=== PATIENT | female | born 1985 | race Hispanic/Latino ===

== ENCOUNTER 2021-10-24 15:50 | Emergency (ER) | payer SELFPAY ==
--- OUTSIDE RECORDS SUMMARY | 2021-10-24 15:54 | XMS REPORT | Continuity of Care Document ---
:1985 Author Organization [facility] t Address [address] [place] [address] Care Team Providers Name Role Phone PCP, DOES NOT HAVE A Primary Care Physician Unavailable RIDDLE Attending Clinician Unavailable Doctor Unassigned, Name Attending Clinician Unavailable Birgit ZURITA Attending Clinician BIRGIT Attending Clinician Unavailable Alexander Attending Clinician Unavailable Physician, Primary or Family Admitting Clinician Unavailabl e Payers Payer Name Policy Type Policy Number Effective Date Expiration Date S ource Problems This patient has no known problems. Allergies, Adverse Reactions, Alerts Allergy Allergy Status Severity Reaction(s) Onset Inactive Treating Comm ents Source Name Type Date Date Clinician No Known DA Active U [facility] Allergie 07-09 Clear s 00:00: [place] 00 [facility] NO KNOWN Drug Active Univers ALLERGIE Class [facility] [place] [facility] [place] Social History Social Habit Start Date Stop Date Quantity Comments Source Exposure to Not sure [facility] SARS-CoV-2 (event) [facility] Sex Assigned At [birth year] [facility] 00:00:00 00:00:00 Medical [place] Smoking Status Start Date Stop Date Source Unknown if ever smoked [facility] Medications Ordered Filled Start Stop Current Ordering Indication Dosage Frequency Signature Comments Components Source Medication Medication Date Date Medication? Clinician (SIG) Name Name lactulose No 45mL 45 mL, Unive rs (CEPHULAC) 05-26 Oral, ity of solution 45 12:15: 11:15 [place] :[place] dose, [facility] 05/26/21 at [place] 0715, [place] HYDROcodone 2020- No 1{tbl} 1 tablet, Univers -acetaminop 05-26 Oral, ity of hen (NORCO 11:30: 10:28 ONCE, 1 [place] as 5) 5-325 mg 00 :00 dose, Mon Med ical tablet 1 05/26/21 at [facility] h tablet 0630, FRANK[place] famotidine 2020- No 20mg 20 mg, Univ ers (PEPCID AC) 05-26 Oral, ity of tablet 20 08:45: 08:57 ONCE, 1 [place] mg 00 :00 dose, [facility] 05/26/21 at [place] 0345, [place]ANK[place] alum-mag No 30mL 30 mL, Univer s hydroxide-s 05-26 Oral, ity of imeth 08:45: 08:57 ONCE, 1 [place] (MAALOX 00 :00 dose, [facility] PLUS / 05/26/21 at [facility] 0345, FRANK[place] PLUS) 200-200-20 mg/5 mL suspension 30 mL dicyclomine No 20mg 20 mg, Uni vers (BENTYL) 05-26 Intramuscu ity of injection 08:45: 08:45 [place] 20 mg 00 :00 NOW, 1 Medical dose, [facility] 05/26/21 at 0345, Routine ketorolac 2020- No 60mg 60 mg, Unive rs (TORADOL) 05-26 Intramuscu ity of injection 08:45: 09:00 lar, ONCE, [place] 60 mg 00 :00 1 dose, Medical [facility] 05/26/21 at 034, FRANKY
Fa culty member approving Restricted medication : GURVINDER GENAO diclofenac Yes [id number] 75mg Take 1 U nivers 75 mg EC 8-16 tablet by ity of tablet 00:00: mouth 2 [place] (two) Medical times [place] daily with meals. famotidine Yes [id number] 20mg Take 1 U nivers (PEPCID) 20 8-16 tablet by ity of mg tablet 00:00: mouth 2 [place] (two) Medical times [place] daily. hyoscyamine [id number] 1 Univers sulfate 8-16 tablet ity of (LEVSIN/SL) 00:00: under the [place] 0.125 mg 00 tongue Medical sublingual every 6 [place] tablet (six) hours as needed (Abdominal pain or cramping). diclofenac Yes [id number] 75mg Take 1 U nivers 75 mg EC 8-16 tablet by ity of tablet 00:00: mouth 2 [place] (two) Medical times [place] daily with meals. famotidine Yes [id number] 20mg Take 1 U nivers (PEPCID) 20 8-16 tablet by ity of mg tablet 00:00: mouth [place] (two) Medical times [place] daily. hyoscyamine Yes [id number] .125mg Place 1 Univers sulfate 8-16 tablet ity of (LEVSIN/SL) 00:00: under the [place] 0.125 mg 00 tongue Medical sublingual every 6 [place] tablet (six) hours as needed (Abdominal pain or cramping). Vital Signs Vital Name Observation Time Observation Value Comments Source Systolic blood 2021-05-26 10:00:00 112 mm[Hg] [facility] Diastolic blood 2021-05-26 10:00:00 79 mm[Hg] [facility] rate 2021-05-26 10:00:00 85 /min [facility] Body temperature 2021-05-26 10:00:00 36.89 Maribel [facility] Respiratory rate 2021-05-26 10:00:00 16 /min [facility] Oxygen saturation in 2021-05-26 10:00:00 97 /min [facility] Arterial blood by [facility] Pulse oximetry [place] Body height 2021-05-26 07:32:00 165.1 cm [facility] Body weight 2021-05-26 07:32:00 70.308 kg [facility] BMI 2021-05-26 07:32:00 25.79 kg/m2 [facility] Procedures Procedure Date / Time Performed Performing Clinician [facility] CONSENT/REFUSAL FOR 2021-10-24 20:41:00 Doctor Unassigned, [facility] TREATMENT CT ABDOMEN PELVIS WO 2021-05-26 10:54:38 Gurvinder Genao [facility] CONTRAST [facility] XR ABDOMEN 2 VW 2021-05-26 09:08:18 Gurvinder Genao [facility] LIPASE 2021-05-26 09:04:00 [facility] METABOLIC PANEL 2021-05-26 09:04:00 Gurvinder Genao [facility] ([id number]) [facility] CBC WITH DIFF 2021-05-26 09:04:00 Gurvinder Genao [facility] URINALYSIS 2021-05-26 09:04:00 Gurvinder Genao [facility] POCT TEST 2021-05-26 08:56:00 Gurvinder Genao [facility] ASSIGNMENT OF BENEFITS 2021-05-26 07:25:23 Doctor Unassigned, No [facility] CONSENT/REFUSAL FOR 2021-05-26 07:19:56 Doctor Unassigned, No Un [facility] DIAGNOSIS AND [facility] TREATMENT Encounters Start End Encounter Admission Attending Care Care Encounter Source Date/Time Date/Time Type Type Clinicians Facility Department ID 2021-10-24 2021-10-24 Emergency X VI [facility] ERT [id number] Univers 14:47:00 14:47:00 REJI breaux y of [facility] 2021-10-24 2021-10-24 Orders Doctor PRICE [id number] Univers 00:00:00 00:00:00 Only Unassigned, ZEHRA [id number] ity of [place] [facility] [id number] [place] as [phone] [place] [id number] [place] 2021-05-26 2021-05-26 Emergency Birgit [facility] [id number] Univers 02:23:00 06:55:00 [facility] [id number] it y of [place] 4.2.7.2.686 [facility] [phone] [address] ([facility]) 2021-05-26 2021-05-26 Emergency X BIRGIT, [facility] ERT [id number] Univers 02:23:00 02:23:00 GURVINDER tao [facility] 2021-05-22 2021-05-22 Emergency EM Dark, Maria Esther [facility]ACL TERS [id number] [facility] 06:43:00 09:00:00 [id number] [facility] Results Test Description Test Time Test Comments Results Result Comments Source URINALYSIS 2021-05-26 09:51:07 Test Item Value Reference Range Interpretation Comme nts APPEARANCE (test code = Cloudy Clear A 6170106331) COLOR (test code = 0920778534) Yellow Yellow PH (test code = 4709805648) 4.8-8.0 SP GRAVITY (test code = 1.003-1.030 0252129204) GLU U QUAL (test code = Normal Normal 8844072758) BLOOD (test code = 7613743569) 1+ Negative A KETONES (test code = 4073795842) Negative Negative PROTEIN (test code = 2887-8) Negative Negative UROBILIN (test code = Normal Normal 9174148640) BILIRUBIN (test code = Negative Negative 8667078510) NITRITE (test code = 8327535888) Negative Negative LEUK HAYLIE (test code = Negative Negative 9694569484) RBC/HPF (test code = 8936542088) See_Comment H [Automated message] The system which ge nerated this result transmit wong reference range: 0 - 3 HP F. The reference range was not used to interpret th is result as normal/abnormal . WBC/HPF (test code = 3217553860) See_Comment [Automated message] The system which ge nerated this result transmit wong reference range: 0 - 5 HP F. The reference range was not used to interpret th is result as normal/abnormal . BACTERIA (test code = Moderate Negative A 5135464610) MUCOUS (test code = 8558696518) Moderate Negative LPF A AMORPHOUS (test code = Rare Rare HPF 0033493186) SQ EPITH (test code = See_Comment H [Auto mated message] The 1472187936) system which ge nerated this result transmit wong reference range: <=2 HPF. The reference range was not u sed to interpret this result as normal/abnormal . Lab Interpretation (test code = Abnormal 31539-9) [facility]. METABOLIC PANEL (80684)2021-05-26 09:31:22 Test Item Value Reference Range Interpretation Comments NA (test code = 138 mmol/L 135-145 6987153981) K (test code = 3.8 mmol/L 3.5-5.0 2065058587) CL (test code = 103 mmol/L 98-108 9952211208) CO2 TOTAL (test code 28 mmol/L 23-31 = 9414448861) AGAP (test code = 2-16 3031816532) BUN (test code = 18 mg/dL 7-23 9266741841) GLUCOSE (test code = 86 mg/dL 70-110 7565744059) CREATININE (test code 0.78 mg/dL 0.50-1.04 = 6793641642) TOTAL BILI (test code 0.2 mg/dL 0.1-1.1 = 0047405525) CALCIUM (test code = 9.1 mg/dL 8.6-10.6 0055696357) T PROTEIN (test code 6.9 g/dL 6.3-8.2 = 1358333120) ALBUMIN (test code = 4.1 g/dL 3.5-5.0 9494051684) ALK PHOS (test code = 42 U/L 34-122 0918072966) ALTv (test code = 10 U/L 5-35 1742-6) AST(SGOT) (test code 17 U/L 13-40 = 6753146103) eGFR (test code = mL/min/1.73m2 1963965479) JOE (test code = JOE) Association of Glomerular Filtration Rate (GFR) and Staging of Kidney Disease* + + +- +| GFR (mL/min/1.73 m2) ?| With Kidney Damage ?| ?Without Kidney Damage+ ------+ ----+ ------+| ?>90 ?| ?Stage one ?| ? Normal ?+ -+ + -+| ?60-89 ?| ?Stage two ?| ? Decreased GFR ? + + +- +| ?30-59 ?| ?Stage three ?| ? Stage three ? + + +- +| ?15-29 ?| ?Stage four ? | ? Stage four ?+ -+ + -+| ?<15 (or dialysis) ? ?| ?Stage five ? | ? Stage five ?+ -+ + -+ *Each stage assumes the associated GFR level has been in effect for at least three months. ?Stages 1 to 5, with or without kidney disease, indicate chronic kidney disease. Notes: Determination of stages one and two (with eGFR >59mL/min/1.73 m2) requires estimation of kidney damage for at least three months as defined by structural or functional abnormalities of the kidney, manifested by either:Pathological abnormalities or Markers of kidney damage (including abnormalities in the composition of the blood or urine or abnormalities in imaging tests). [facility] Test Item Value Reference Range Interpretation Comments LIPASE (test code = 4215337400) 148 U/L 0-220 Lab Interpretation (test code = Normal 17698-9) [facility] WITH [id number] 09:16:20 Test Item Value Reference Range Interpretation Comments WBC (test code = See_Comment [Automated 7644-2) message] The sy stem which generated this result transmitted reference range : 4.30 - 11.10 10*3/?L. The reference range was not used to interpret this result as normal/abnormal . RBC (test code = See_Comment [Automated 170-8) message] The sy stem which generated this result transmitted reference range : 3.93 - 5.25 10*6/?L. The reference range was not used to interpret this result as normal/abnormal . HGB (test code = 12.7 g/dL 11.6-15.0 718-7) HCT (test code = 38.3 % 35.7-45.2 4544-3) MCV (test code = 91.6 fL 80.6-95.5 787-2) MCH (test code = 30.4 pg 25.9-32.8 785-6) MCHC (test code = 33.2 g/dL 31.6-35.1 786-4) RDW-SD (test code = 39.6 fL 39.0-49.9 15350-3) RDW-CV (test code = 11.9 % 12.0-15.5 L 788-0) PLT (test code = See_Comment [Automated 777-3) message] The sy stem which generated this result transmitted reference range : 166 - 358 10*3/ ?L. The reference r hardy was not used to interpret this result as normal/abnormal . MPV (test code = 9.1 fL 9.5-12.9 L 55130-0) NRBC/100 WBC (test See_Comment [Automat ed code = 2528369104) message] The system which generated this result transmitted reference range : 0.0 - 10.0 /100 WBCs. The refer ence range was not u sed to interpret th is result as normal/abnormal . NRBC x10^3 (test code <0.01 See_Comment [Auto mated = 5630685934) message] The s ystem which generated this result transmitted reference range : 10*3/?L. The reference range was not used to interpret this result as normal/abnormal . GRAN MAT (NEUT) % 57.1 % (test code = 770-8) IMM GRAN % (test code 0.40 % = 1160786079) LYMPH % (test code = 32.6 % 736-9) MONO % (test code = 9.3 % 5905-5) EOS % (test code = 0.4 % 713-8) BASO % (test code = 0.2 % 706-2) GRAN MAT x10^3(ANC) 5.50 10*3/uL 1.88-7.09 (test code = 9104082638) IMM GRAN x10^3 (test 0.04 10*3/uL 0.00-0.06 code = 6064931269) LYMPH x10^3 (test code 3.14 10*3/uL 1.32-3.29 = 731-0) MONO x10^3 (test code 0.90 10*3/uL 0.33-0.92 = 742-7) EOS x10^3 (test code = 0.04 10*3/uL 0.03-0.39 711-2) BASO x10^3 (test code <0.03 0.01-0.07 = 704-7) Lab Interpretation Abnormal (test code = 61032-7) [facility] [id number] 08:56:00 Test Item Value Reference Range Interpretation Comments POCT PREG (test code = 1605) negative On board controls acceptable with present C Line (test code = 3574) POCT PREG LOT # (test code = 3575) [id number] POCT PREG TEST DATE (test 10/10/2022 code = 3576) Lab Interpretation (test code = Normal 68613-1) [facility] ONLY)2021-05-22 12:33:00 Test Item Value Reference Range Interpretation Comments URINE HCG TRIAGE (ER ONLY) (test NEGATIVE Negative code = HCGTRIAGE) Urine Test Result: NEGATIVEAre internal controls (presence of a control line & clear background) OK? YesLot # of HCG Test Kit: [id number] Date of Kit: 11/10/22Test Performed by:YESSY Kowalski Perfomed on: 05/22/21BASIC METABOLIC [id number] 08:38:00 Test Item Value Reference Range Interpretation Comments SODIUM (test code = NA/ABG) 143 MEQ/L 134-147 N POTASSIUM (test code = K/ABG) 4.0 MEQ/L 3.4-5.0 N CHLORIDE (test code = CL/ABG) 103 MEQ/L 100-108 N CREATININE ABG (test code = 0.7 mg/dL 0.6-1.0 N CREAABG) POC IONIZED CALCIUM (test code = 1.26 MMOL/L 1.12-1.32 N POCCA) POC GLUCOSE (test code = POCGLU) 96 MG/DL CBC W/AUTO [id number] 08:38:00 Test Item Value Reference Range Interpretation Comments WHITE BLOOD CELL (test code = WBC) 9.0 K/uL 3.5-11.0 N RED BLOOD CELL (test code = RBC) 4.33 M/uL 3.54-5.02 N HEMOGLOBIN (test code = HGB) 13.6 GM/DL 11.0-15.0 N HEMATOCRIT (test code = HCT) 38.9 % 37.0-47.0 N MEAN CELL VOLUME (test code = MCV) 89.8 fL 81.0-99.0 N MEAN CELL HGB (test code = MCH) 31.4 pg 27.0-31.0 H MEAN CELL HGB CONCETRATION (test 35.0 GM/DL 33.0-37.0 N code = MCHC) RED CELL DISTRIBUTION WIDTH CV 12.2 % 11.5-14.5 N (test code = RDW) PLATELET COUNT (test code = PLT) 289 K/mm3 150-400 N MEAN PLATELET VOLUME (test code = 9.6 FL 8.8-13.1 N MPV) NEUTROPHIL % (test code = NT%) 56.9 % 40.0-76.0 N LYMPHOCYTE % (test code = LY%) 33.5 % 15.0-40.0 N MIXED % (test code = MX%) 9.6 % 3.0-15.0 N NEUTROPHIL # (test code = NT#) 5.1 K/uL 1.8-7.6 N LYMPHOCYTE # (test code = LY#) 3.0 K/uL 1.0-3.8 N MIXED # (test code = MX#) 0.9 k/mm3 0.1-0.8 H TROPONIN-I [id number] 08:23:00 Test Item Value Reference Range Interpretation Comments TROPONIN-I RAPID 0.00 ng/mL 0.00-0.08 N Performed 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 Rather, the pat ient sclinical prese ntation (history, physi reed exam) and ECGshould b e used in conjunction wit h troponin in thediagnosti c evaluation of s uspected myocardial infa rction. Aserial samplin g protocol is recommended to facilitate the identification of temporal changes in trop onin levels characteristic of [place]. - XR ABDOMEN [id number] 00:00:00 [facility] : 1985 Sex: F FAX: Maria Esther Mendez MD [phone] [place]: St: REG Name: ARACELI HOLDER [place] FSED : 1985 Age/S: 35/F Unit #: [id number] Loc: [place] Phys: Maria Esther Munoz MD Acct: [id number] Dis Date: Status: REG ER PHONE #: Exam Date: 05/22/2021 0830 FAX #: Reason: acute abd chest pain EXAMS: CPT CODE: [id number] XR ABDOMEN 2V 86846 PROCEDURE INFORMATION: Exam: XR AbdomenExam date and time: 05/22/2021 8:19 AM Age: 35 years old Clinical indication: Abdominalpain; Localized; Right upper quadrant (ruq); Additional info: Acute abd chest pain TECHNIQUE: Imaging protocol: XR of the abdomen. Views: 2 Views. Upright and supine views. AP Supine and Upright COMPARISON: DX XR RIBS UNI W/CXR 3+V RT 05/22/2021 7:12 AM FINDINGS: Lungs: The visualized lung bases are clear. Gastrointestinal tract: There is a non-obstructive bowel gas pattern. There is no abnormal dilatation of bowel loops. Nosignificant air fluid levels. Intraperitoneal space: No free air. Bones/joints: No acute osseous abnormality. IMPRESSION: No acute findings. at 0847 Reported and signed by: Jorge Prince M.D. CC: Maria Esther Munoz MD Technologist: RT Kavin(Stormy) Trnscrd Date/Time/By: 05/22/2021 (846) : By: MarioL Orig Print D/T: S: 05/22/2021 (2090) PAGE 1 Signed Report- XR RIBS UNI W/CXR 3+V [id number] 00:00:00 [facility] : 1985 Sex: F FAX: Helga Delcid MD [phone] [place]: St: REG Name: ARACELI HOLDER [place] FSED : 1985 Age/S: 35/F Unit #: [id number] Loc: [place], [place] Phys: Helga Delcid MD Acct: [id number] Dis Date: Status: REG ER PHONE #: Exam Date: 05/22/2021 0744 FAX #: Reason: rib pain EXAMS: CPT CODE: [id number] XR RIBS UNI W/CXR 3+V [place] [id number] PROCEDURE INFORMATION: Exam: XR Right Ribs with PA Chest Exam date and time: 05/22/2021 7:12 AM Age: 35 years old Clinical indication: Chest wall pain; Right; Additional info: Rib pain TECHNIQUE: Imaging protocol: XR Right ribs with PA chest. Views: 3 views; Frontal view of the chest with Frontal and Oblique rib views COMPARISON: No relevant prior studies available. FINDINGS: Tubes, catheters and devices: None. Lungs: The lungs appear clear. Pleural spaces: Unremarkable. No pleural effusion. No pneumothorax. Heart/Mediastinum: Mediastinum and mark appear unremarkable. Bones/joints: No acute bony abnormality identified. The visualized aspects of the thoracic rib cage appears unremarkable. Notes: If there is further concern can consider addtional views or bone scan. IMPRESSION: No acute findings. at 0752 Reported and signed by: Joao Mendez M.D. CC: Helga Delcid MD Technologist: RT Kavin(Stormy) Trnscrd Date/Time/By: 05/22/2021 (0752) : By: [email or web address] Orig Print D/T: S: 05/22/2021 (075) PAGE 1 Signed Report"
[2021-10-24] MEDS ORDERED: MORPHINE 4 MG/ML SYR ONE ×2 (16:27→17:21)
[2021-10-24] MEDS ORDERED: ONDANSETRON 4 MG/2 ML VIAL ONE ×2 (16:28→18:36)
[2021-10-24 16:42] LABS: Absolute Lymphocytes (CBC) 2.3 K/uL (0.7-4.9); Hematocrit 37.8 % (36.0-45.0); Lymphocytes % 32.6 % (15.3-44.8); MPV 6.8 fL (7.6-11.3); RBC Red Blood Cell Count 4.24 M/uL (3.86-4.86)
[2021-10-24 16:43] LABS: Urine Blood Trace-intact (Negative); Urine Glucose Negative (Negative); Urine Protein Negative (Negative); Urine Specific Gravity >=1.030 (1.005-1.030)
[2021-10-24 16:56] LABS: Urine Bacteria >50 /HPF (<20); Urine RBC <5 /HPF (NONE SEEN)
--- NOTE | 2021-10-24 17:04 | RAD REPORT ---
EXAM DESCRIPTION: CT - Stone Protocol - 10/24/2021 4:46 pm CLINICAL HISTORY: Abdominal pain. Flank pain COMPARISON: None. TECHNIQUE: Computed axial tomography of the abdomen pelvis was obtained without oral or IV contrast. Lack of IV and oral contrast limits evaluation of solid organs, bowel, and vessels. Coronal reformat wong images were obtained and reviewed. All CT scans are performed using dose optimization technique as appropriate and may include automated exposure control or mA/KV adjustment according to patient size. FINDINGS: 1 millimeter calcification right kidney. No hydronephrosis. A left renal calculus is not seen. No ureteral/bladder calculus. The liver, spleen, pancreas and adrenals appear grossly normal There is no evidence of diverticulitis. The appendix appears normal IMPRESSION: 1 millimeter nonobstructing right renal calculus
[2021-10-24 17:09] LABS: ALT/SGPT 23 U/L (12-78); AST/SGOT 15 U/L (15-37); Albumin 3.2 g/dL (3.4-5.0); Alkaline Phosphatase 68 U/L (45-117); BUN Blood Urea Nitrogen 5 mg/dL (7-18); Bicarbonate 29 mmol/L (21-32); Bilirubin Direct < 0.1 mg/dL (0-0.2); Bilirubin Total 0.1 mg/dL (0.2-1.0); Glucose Level 125 mg/dL (74-106); Lipase 118 U/L (73-393); Potassium 3.4 mmol/L (3.5-5.1); Protein, Total 7.1 g/dL (6.4-8.2); Sodium Level 141 mmol/L (136-145)
[2021-10-24] MEDS ORDERED: KETOROLAC 30 MG/ML INJ ONE (17:19)
[2021-10-24 18:33] LABS: SARS-COV-2 RT PCR POSITIVE (NEGATIVE)
--- NOTE | 2021-10-24 18:45 | RAD REPORT ---
EXAM DESCRIPTION: US - Abdomen Exam Limited - 10/24/2021 6:36 pm CLINICAL HISTORY: Abdominal pain. COMPARISON: None. FINDINGS: Multiple gallstones. Gallbladder wall is not thickened The biliary tree is normal caliber. IMPRESSION: Cholelithiasis without evidence of cholecystitis
--- NOTE | 2021-10-24 18:48 | RAD REPORT ---
EXAM DESCRIPTION: US - Transvaginal Study Probe - 10/24/2021 6:36 pm CLINICAL HISTORY: Pelvic pain COMPARISON: none FINDINGS: The uterus measures 7 x 3 x 2cm. A fibroid is not seen. Endometrial stripe measures 2 mill imeters. A couple of nabothian cysts within the cervix. The ovaries are normal in size and echotexture. The right and left adnexal unremarkable No significant free fluid is seen. IMPRESSION: Unremarkable pelvic ultrasound
--- NOTE | 2021-10-24 19:26 | ER ---
Nurse's Notes [facility] Name: Yamilex Sweeney Age: 36 yrs Sex: Female : 1985 Arrival Date: 10/24/2021 Time: 15:53 Bed 12 Private MD: Diagnosis: Other cholelithiasis without obstruction;Female pelvic inflammatory disease, unspecified;SARS-associated coronavirus as the cause of diseases classified elsewhere Presentation: 10/24 16:05 Chief complaint: Patient states: sudden onset of Right flank pain that radiates to RUQ vg1 and RLQ with NV that began about three hours ago. Coronavirus screen: Vaccine status: Patient reports being unvaccinated. Client denies travel out of the [place] in the last 14 days. Ebola Screen: Patient negative for fever greater than or equal to 101.5 degrees Fahrenheit, and additional compatible Ebola Virus Disease symptoms. Initial Sepsis Screen: Does the patient meet any 2 criteria? No. Patient's initial sepsis screen is negative. Does the patient have a suspected source of infection? No. Patient's initial sepsis screen is negative. Risk Assessment: Do you want to hurt yourself or someone else? Patient reports no desire to harm self or others. Onset of symptoms was October 24, 2021. 16:05 Method Of Arrival: Ambulatory vg1 16:05 Acuity: MARANDA 3 vg1 Triage Assessment: 16:07 General: Appears in no apparent distress. uncomfortable, Behavior is cooperative. Pain: vg1 Complains of pain in Right flank and RUQ and RLQ Also complains of nausea. GI: Abdomen is flat, non-distended, Reports nausea, vomiting. : Reports inability to void, blood in urine. 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 - Social history:: Smoking status: Patient denies any tobacco usage or history of. Screenin:11 Abuse screen: Denies threats or abuse. Denies injuries from another. Nutritional ab2 screening: No deficits noted. Tuberculosis screening: No symptoms or risk factors identified. Fall Risk None identified. Assessment: 16:11 GI: Bowel sounds present X 4 quads. Abd is soft and non tender X 4 quads. ab2 16:12 General: Appears in no apparent distress. comfortable, Behavior is calm, cooperative, ab2 appropriate for age. Pain: Complains of pain in right lower quadrant Pain currently is 9 out of 10 on a pain scale. Quality of pain is described as burning, aching. Neuro: No deficits noted. 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 Gait is steady, Speech is normal, Facial symmetry appears normal. Cardiovascular: No deficits noted. Denies chest pain, shortness of breath, Patient's skin is warm and dry. Respiratory: Airway is patent Breath sounds are clear bilaterally. GI: Reports lower abdominal pain. 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 EENT: No deficits noted. No signs and/or symptoms were reported regarding the EENT system. Derm: No deficits noted. No signs and/or symptoms reported regarding the dermatologic system. Musculoskeletal: No deficits noted. No signs and/or symptoms reported regarding the musculoskeletal system. 19:47 Reassessment: Patient states symptoms have improved. ab2 Vital Signs: 16:05 BP 112 / 78; Pulse 94; Resp 17; Temp 98.6(O); Pulse Ox 100% ; Weight 77.11 kg; Height 5 vg1 ft. 5 in. (165.10 cm); Pain 10/10; 17:24 BP 127 / 79; Pulse 90; Resp 16; Pulse Ox 99% on R/A; ab2 18:32 BP 121 / 67; Pulse 89 MON; Resp 16 S; Pulse Ox 100% on R/A; Pain 2/10; ab2 19:30 BP 130 / 77; Pulse 81; Resp 16; Pulse Ox 100% on R/A; Pain 2/10; ab2 16:05 Body Mass Index 28.29 (77.11 kg, 165.10 cm) vg1 ED Course: 15:53 Patient arrived in ED. mr 16:07 Triage completed. vg1 16:07 Arm band placed on. vg1 16:09 Yemi Begum PA is PHCP. cp 16:09 Moe Garcia MD is Attending Physician. cp 16:11 Dmitri Mathis is Primary Nurse. ab2 16:11 Patient has correct armband on for positive identification. Bed in low position. Call ab2 light in reach. 16:11 No provider procedures requiring assistance completed. ab2 16:37 Basic Metabolic Panel Sent. ab2 16:37 CBC with Diff Sent. ab2 16:37 Hepatic Function Sent. ab2 16:37 Lipase Sent. ab2 16:46 CT Stone Protocol In Process Unspecified. EDMS 16:52 COVID-19/FLU A+B (Document "Date of Onset" if Symptomatic) Sent. mh5 16:52 Urine Microscopic Only Sent. mh5 16:53 Initial lab(s) drawn, by me, sent to lab. Urine collected: clean catch specimen, mh5 cloudy, COVID swab sent to lab. Inserted saline lock: 18 gauge in left antecubital area, using aseptic technique. Blood collected. 17:30 COVID-19/FLU A+B (Document "Date of Onset" if Symptomatic) Sent. mh5 18:36 US Transvaginal Study (Probe) In Process Unspecified. EDMS 18:36 US Abdomen Limited: gallbladder In Process Unspecified. EDMS 19:24 Issac Freeman MD is Referral Physician. cp 19:48 IV discontinued, intact, bleeding controlled, No redness/swelling at site. Pressure ab2 dressing applied. Administered Medications: 16:37 Drug: Zofran (Ondansetron) 4 mg Route: IVP; Site: left antecubital; ab2 16:37 Drug: morphine 4 mg Route: IVP; Site: left antecubital; ab2 17:18 CANCELLED (Physician Discretion): Ketorolac 15 mg IVP once cp 17:23 Drug: morphine 4 mg Route: IVP; Site: left antecubital; ab2 18:37 Drug: Zofran (Ondansetron) 4 mg Route: IVP; Site: left antecubital; ab2 19:46 Drug: Rocephin - (cefTRIAXone) 1 grams Route: IVPB; Infused Over: 30 mins; Site: left ab2 antecubital; 19:46 Drug: Zithromax (azithromycin) 1 grams Route: PO; ab2 19:46 Not Given (Patient Refused): fentaNYL (PF) 25 mcg IVP once; RASS on ADMIN: Combtv4, ab2 Very Agttd3, Agttd2, Rstlss1, AlertClm0, Drwsy-1, Lt Sdtn-2, Mod Sdtn-3, Dp Sdtn-4, UnArsble-5 19:46 Drug: Potassium Effervescent Tablet 50 mEq Route: PO; ab2 Outcome: 19:25 Discharge ordered by MD. cp 19:47 Discharged to home ambulatory. ab2 19:47 Condition: good 19:47 Discharge instructions given to patient, Instructed on discharge instructions, follow up and referral plans. medication usage, Demonstrated understanding of instructions, follow-up care, medications, Prescriptions given X 4. 19:49 Patient left the ED. ab2 Signatures: Dispatcher [employer] EDWV YuanKamilah Corey, PA PA cp Martinez, Maria Viviana Hernadez, RN RN vg1 Dmitri Mathis ab2 Corrections: (The following items were deleted from the chart) 18:40 17:30 Wet Prep+BA.LAB.BRZ drawn and sent. [place] [id number] 18:40 17:30 GC (Gonorr/Clamydia) Probe+R.LAB.BRZ drawn and sent. 5 5 18:40 17:40 Assist provider with pelvic exam: Set up pelvic tray. Performed by Yemi petit Specimens sent to lab. Patient tolerated well. [facility]
--- NOTE | 2021-10-24 19:26 | EDPHYS ---
Physician Documentation [facility] Name: Yamilex Sweeney Age: 36 yrs Sex: Female : 1985 Arrival Date: 10/24/2021 Time: 15:53 Bed 12 Private MD: ED Physician oMe Garcia HPI: 10/24 16:25 This 36 yrs old Female presents to ER via Ambulatory with complaints of cp Possible Kidney Stone. 16:25 The patient complains of pain in the right flank and left flank. cp 16:25 The pain radiates to the left low back, right mid back and right low back. Onset: The cp symptoms/episode began/occurred suddenly, today. Associated signs and symptoms: Pertinent positives: urinary frequency, hematuria, nausea, vomiting, Pertinent negatives: diarrhea, dysuria, fever, pain radiating to the lower extremities. Severity of pain: in the emergency department the pain is unchanged despite home interventions. 16:30 Patient reports mild vaginal irregular vaginal bleeding. 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 - Social history:: Smoking status: Patient denies any tobacco usage or history of. ROS: 16:30 Constitutional: Negative for fever. cp 16:30 Abdomen/GI: Positive for nausea and vomiting, Negative for diarrhea, constipation. 16:30 : Positive for flank pain, urinary frequency, hematuria. 16:30 Eyes: Negative for injury, pain, redness, and discharge. cp 16:30 ENT: Negative for ear pain, sore throat, difficulty swallowing, difficulty handling secretions. 16:30 Cardiovascular: Negative for chest pain, edema, palpitations. 16:30 Respiratory: Negative for cough, shortness of breath, wheezing. 16:30 Back: Positive for radiated pain. 16:30 Neuro: Negative for altered mental status, headache, numbness, syncope, weakness. 16:30 All other systems are negative. cp Exam: 16:35 Constitutional: The patient appears in no acute distress, alert, awake, non-toxic, well cp developed, well nourished, uncomfortable. 16:35 Head/Face: Normocephalic, atraumatic. cp 16:35 Eyes: Periorbital structures: appear normal, Conjunctiva: normal, no exudate, no injection, Sclera: no appreciated abnormality, Lids and lashes: appear normal, bilaterally. 16:35 ENT: External ear(s): are unremarkable, Nose: is normal, Mouth: Lips: moist, Oral mucosa: pink and intact, moist, Posterior pharynx: is normal, airway is patent, no erythema, no exudate. 16:35 Chest/axilla: Inspection: normal, Palpation: is normal, no crepitus, no tenderness. 16:35 Cardiovascular: Rate: normal, Rhythm: regular. 16:35 Respiratory: the patient does not display signs of respiratory distress, Respirations: normal, no use of accessory muscles, no retractions, labored breathing, is not present, Breath sounds: are clear throughout, no decreased breath sounds, no stridor, no wheezing. 16:35 Abdomen/GI: Inspection: abdomen appears normal, Bowel sounds: active, all quadrants, Palpation: soft, in all quadrants, moderate abdominal tenderness, in the left upper quadrant, right lower quadrant and left lower quadrant, rebound tenderness, is not appreciated, involuntary guarding, is not appreciated. 16:35 Back: CVA tenderness, is absent. 16:35 Skin: no rash present. 16:35 Neuro: Orientation: to person, place \\T\\ time. Mentation: is normal, Motor: moves all fours, strength is normal, Sensation: is normal. 18:25 : Pelvic Exam: External exam: is normal, Speculum exam: no bleeding is noted, no cp cervicitis, os that is closed, bimanual exam reveals cervical motion tenderness, no uterine tenderness, right adnexal tenderness, left adnexal tenderness, discharge, white, the nurse was present for the exam, Sexual behavior: the patient is sexually active. Vital Signs: 16:05 BP 112 / 78; Pulse 94; Resp 17; Temp 98.6(O); Pulse Ox 100% ; Weight 77.11 kg; Height 5 vg1 ft. 5 in. (165.10 cm); Pain 10/10; 17:24 BP 127 / 79; Pulse 90; Resp 16; Pulse Ox 99% on R/A; ab2 18:32 BP 121 / 67; Pulse 89 MON; Resp 16 S; Pulse Ox 100% on R/A; Pain 2/10; ab2 19:30 BP 130 / 77; Pulse 81; Resp 16; Pulse Ox 100% on R/A; Pain 2/10; ab2 16:05 Body Mass Index 28.29 (77.11 kg, 165.10 cm) vg1 MDM: 16:12 Patient medically screened. cp 19:25 Data reviewed: vital signs, nurses notes, lab test result(s), radiologic studies, CT cp scan, plain films. 19:25 Counseling: I had a detailed discussion with the patient and/or guardian regarding: the cp historical points, exam findings, and any diagnostic results supporting the discharge/admit diagnosis, lab results, radiology results, the need for outpatient follow up, a family practitioner, a general surgeon, to return to the emergency department if symptoms worsen or persist or if there are any questions or concerns that arise at home. Response to treatment: the patient's symptoms have markedly improved after treatment, VSS. Pain markedly improved. Labs and radiology studies reviewed. Discussed US showing gallstones. Abdomen exam negative for rebound tenderness of RUQ. Will discharge to home for continued monitoring. 10/24 16:16 Order name: Basic Metabolic Panel; Complete Time: 17:20 cp 10/24 17:20 Interpretation: Normal except: K 3.4; GLUC 125; BUN 5. cp 10/24 16:16 Order name: CBC with Diff; Complete Time: 17:05 10/24 17:05 Interpretation: MPV 6.8. 10/24 16:16 Order name: Hepatic Function; Complete Time: 17:20 10/24 17:20 Interpretation: Normal except: BILIT 0.1; ALB 3.2; GLOB 3.9; A/G 0.8. 10/24 16:16 Order name: Lipase; Complete Time: 17:20 cp 10/24 16:16 Order name: Urine Microscopic Only; Complete Time: 17:05 cp 10/24 17:05 Interpretation: Normal except: SQEPI 20-50; UBACT >50. 10/24 16:36 Order name: COVID-19/FLU A+B (Document "Date of Onset" if Symptomatic); Complete Time: ab2 19:05 10/24 16:16 Order name: CT Stone Protocol; Complete Time: 17:06 cp 10/24 16:43 Order name: Urine Dipstick-Ancillary; Complete Time: 17:05 EDMS 10/24 17:05 Interpretation: Normal except: UBLD Trace-intact. cp 10/24 16:48 Order name: Urine --Ancillary (enter results); Complete Time: 17:06 eb 10/24 17:20 Order name: GC (GONORR/CHLAMYDIA) Probe cp 10/24 17:20 Order name: Wet Prep 10/24 17:24 Order name: US Transvaginal Study (Probe); Complete Time: 19:05 cp 10/24 19:05 Interpretation: Reviewed report. cp 10/24 17:24 Order name: US Abdomen Limited: gallbladder; Complete Time: 19:05 cp 10/24 16:16 Order name: IV Saline Lock; Complete Time: 16:37 cp 10/24 16:16 Order name: Labs collected and sent; Complete Time: 16:37 cp 10/24 16:16 Order name: Urine Test (obtain specimen) 10/24 16:16 Order name: Urine Dipstick-Ancillary (obtain specimen); Complete Time: 16:52 cp 10/24 17:20 Order name: Pelvic Exam Setup; Complete Time: 17:30 cp Administered Medications: 16:37 Drug: Zofran (Ondansetron) 4 mg Route: IVP; Site: left antecubital; ab2 16:37 Drug: morphine 4 mg Route: IVP; Site: left antecubital; ab2 17:18 CANCELLED (Physician Discretion): Ketorolac 15 mg IVP once cp 17:23 Drug: morphine 4 mg Route: IVP; Site: left antecubital; ab2 18:37 Drug: Zofran (Ondansetron) 4 mg Route: IVP; Site: left antecubital; ab2 19:46 Drug: Rocephin - (cefTRIAXone) 1 grams Route: IVPB; Infused Over: 30 mins; Site: left ab2 antecubital; 19:46 Drug: Zithromax (azithromycin) 1 grams Route: PO; ab2 19:46 Not Given (Patient Refused): fentaNYL (PF) 25 mcg IVP once; RASS on ADMIN: Combtv4, ab2 Very Agttd3, Agttd2, Rstlss1, AlertClm0, Drwsy-1, Lt Sdtn-2, Mod Sdtn-3, Dp Sdtn-4, UnArsble-5 19:46 Drug: Potassium Effervescent Tablet 50 mEq Route: PO; ab2 Disposition: 10/25 07:44 Co-signature as Attending Physician, Moe Garcia MD I agree with the assessment and kdr plan of care. Disposition Summary: 10/24/21 19:25 Discharge Ordered Location: Home cp Problem: new cp Symptoms: have improved cp Condition: Stable cp Diagnosis - Other cholelithiasis without obstruction cp - Female pelvic inflammatory disease, unspecified cp - SARS-associated coronavirus as the cause of diseases classified elsewhere cp Followup: cp - With: Issac Freeman MD - When: 2 - 3 days - Reason: cholelithiasis Discharge Instructions: - Discharge Summary Sheet cp - Pelvic Inflammatory Disease cp - Pelvic Pain, Female cp - Cholelithiasis cp - COVID-19 cp - Things to Know about the COVID-19 Pandemic - [facility] cp - 10 Things You Can Do to Manage Your COVID-19 Symptoms at Home - [facility] cp - COVID-19: Quarantine vs. Isolation - [facility] cp - Prevent the Spread of COVID-19 if You Are Sick - [facility] cp Forms: - Medication Reconciliation Form cp - Thank You Letter cp - Antibiotic Education cp - Prescription Opioid Use cp Prescriptions: - Ibuprofen 800 mg Oral Tablet - take 1 tablet by ORAL route every 8 hours As needed take with food; 30 tablet; cp Refills: 0, Product Selection Permitted - Doxycycline Hyclate 100 mg Oral Tablet - take 1 tablet by ORAL route every 12 hours; 20 tablet; Refills: 0, Product cp Selection Permitted - Metronidazole 500 mg Oral Tablet - take 1 tablet by ORAL route every 8 hours; 30 tablet; Refills: 0, Product cp Selection Permitted - Tramadol 50 mg Oral Tablet - take 1 tablet by ORAL route every 8 hours as needed; 12 tablet; Refills: 0, cp Product Selection Permitted Signatures: Dispatcher [employer] EDMS Moe Garcia MD MD kdr Page, Corey, PA PA cp Viviana Charles RN RN vg1 Dmitri Mathis ab2 Corrections: (The following items were deleted from the chart) 10/24 17:18 17:06 Ketorolac 15 mg IVP once ordered. cp cp 19:26 19:25 Lower abdominal pain, unspecified cp cp
[2021-10-24] MEDS ORDERED: CEFTRIAXONE 1000 MG/VIAL ONE (19:46)
[2021-10-24] MEDS ORDERED: AZITHROMYCIN 250 MG TAB ONE (19:46)
[2021-10-24] MEDS ORDERED: POTASSIUM 25 MEQ EFFERV TAB ONE (19:47)
[2021-10-24 19:58] VITALS: TEMP 98.6
[2021-10-24 20:01] VITALS: O2SAT 100
[2021-10-24 20:03] VITALS: BP 130/77
== END 2021-10-24 19:49 | disposition home or self-care (01) ==
LOC: ER 15:50
DX: K80.80 Other cholelithiasis without obstruction (principal); U07.1 COVID-19; N73.9 Female pelvic inflammatory disease, unspecified
CPT/HCPCS: 0240U; 36415; 74176; 76377; 76705; 76830; 80048; 80076; 81003; 81015; 81025; 83690; 85025; 87210; 87490; 87590; 96374; 96375; 99284; J2405

== ENCOUNTER 2021-10-26 18:02 | Emergency (ER) | payer SELFPAY ==
--- OUTSIDE RECORDS SUMMARY | 2021-10-26 18:05 | XMS REPORT | Continuity of Care Document ---
:1985 Author Organization [facility] t Address [address] [place] [address] Care Team Providers Name Role Phone Pcp, Does Not Have A Primary Care Physician RIDDLE Attending Clinician Unavailable Willamina ACNP Attending Clinician Doctor Unassigned, Name Attending Clinician Unavailable Birgit ZURITA Attending Clinician BIRGIT Attending Clinician Unavailable Dark Attending Clinician Unavailable Physician, Primary or Family Admitting Clinician Unavailabl e Payers Payer Name Policy Type Policy Number Effective Date Expiration Date S ource Problems Condition Condition Condition Status Onset Resolution Last Treating Co mments Source Name Details Category Date Date Treatment Clinician Date Flank Flank Disease Active Univers pain, pain, 1-14 ity of acute acute 00:00: [address] Allergies, Adverse Reactions, Alerts Allergy Allergy Status Severity Reaction(s) Onset Inactive Treating Comm ents Source Name Type Date Date Clinician No Known DA Active U [facility] Allergie 07-09 Clear s 00:00: [address] NO KNOWN Drug Active Univers ALLERGIE Class ity of S [facility] Social History Social Habit Start Date Stop Date Quantity Comments Source Exposure to Unable to assess Univers ity of SARS-CoV-2 [facility] (event) [place] Sex Assigned At [birth year] Univers y of 00:00:00 00:00:00 [facility] Smoking Status Start Date Stop Date Source Unknown if ever smoked [facility] Medications Ordered Filled Start Stop Current Ordering Indication Dosage Frequency Signature Comments Components Source Medication Medication Date Date Medication? Clinician (SIG) Name Name ondansetron 2021- Yes 4mg 4 mg, Univ ers (ZOFRAN-ODT 10-24 Oral, ity of ) 22:30: 10:29 ONCE, 1 [place] disintegrat 00 :00 dose, On Medi reed ing tablet [facility] 4 mg 10/24/21 at 1630, Routine lactulose 2020- No 45mL 45 mL, Unive rs (CEPHULAC) 05-26 Oral, ity of solution 45 12:15: 11:15 [place]CE[place] 1 [place] 00 :[place] dose, [facility] Medical 05/26/21 at [place] 0715, FRANK[place] HYDROcodone 2020- No 1{tbl} 1 tablet, Univers -acetaminop 05-26 Oral, ity of hen (NORCO 11:30: 10:28 ONCE, 1 [place] as 5) 5-325 mg 00 :00 dose, [facility] Med ical tablet 1 05/26/21 at [facility] h tablet 0630, FRANKY famotidine 2020- No 20mg 20 mg, Univ ers (PEPCID AC) 05-26 Oral, ity of tablet 20 08:45: 08:57 ONCE, 1 [place] mg 00 :00 dose, [facility] Medical 05/26/21 at [place] 0345, FRANKY alum-mag 2020- No 30mL 30 mL, Univ s hydroxide-s 05-26 Oral, ity of imeth 08:45: 08:57 ONCE, 1 [place] (MAALOX 00 :00 dose, [facility] Medical PLUS / 05/26/21 at [place] MAG-AL 0345, FRANKY PLUS) 200-200-20 mg/5 mL suspension 30 mL dicyclomine 2020- No 20mg 20 mg, Uni vers (BENTYL) 05-26 Intramuscu ity of injection 08:45: 08:45 [place]CE [place] 20 mg 00 :00 NOW, 1 Medical dose, Mon [place] 05/26/21 at 0345, Routine ketorolac 2020- No 60mg 60 mg, Unive rs (TORADOL) 05-26 Intramuscu ity of injection 08:45: 09:00 lar, ONCE, [place] 60 mg 00 :00 1 dose, Medical Mon [place] 05/26/21 at 0345, FRANKY
Fa culty member approving Restricted medication : GURVINDER GENAO diclofenac 0 Yes [id number] 75mg Take 1 U nivers 75 mg EC 8-16 tablet by ity of tablet 00:00: mouth (two) Medical times Branch daily with meals. famotidine 0 Yes [id number] 20mg Take 1 U nivers (PEPCID) 20 8-16 tablet by ity of mg tablet 00:00: mouth (two) Medical times Branch daily. hyoscyamine [id number] 1 Univers sulfate 8-16 tablet ity of (LEVSIN/SL) 00:00: under the [place] 0.125 mg 00 tongue Medical sublingual every 6 Branch tablet (six) hours as needed (Abdominal pain or cramping). diclofenac 0 Yes [id number] 75mg Take 1 U nivers 75 mg EC 8-16 tablet by ity of tablet 00:00: mouth (two) Medical times Branch daily with meals. famotidine 0 Yes [id number] 20mg Take 1 U nivers (PEPCID) 20 8-16 tablet by ity of mg tablet 00:00: mouth (two) Medical times Branch daily. hyoscyamine 2020-[id number] 1 Univers sulfate 8-16 tablet ity of (LEVSIN/SL) 00:00: under the [place] 0.125 mg 00 tongue Medical sublingual every 6 Branch tablet (six) hours as needed (Abdominal pain or cramping). diclofenac 2020-0 Yes [id number] 75mg Take 1 U nivers 75 mg EC 8-16 tablet by ity of tablet 00:00: mouth (two) Medical times Branch daily with meals. famotidine Yes [id number] 20mg Take 1 U nivers (PEPCID) 20 8-16 tablet by ity of mg tablet 00:00: mouth 2 (two) Medical times [place] daily. hyoscyamine Yes [id number] .125mg Place 1 Univers sulfate 8-16 tablet ity of (LEVSIN/SL) 00:00: under the [place] 0.125 mg 00 tongue Medical sublingual every 6 Branch tablet (six) hours as needed (Abdominal pain or cramping). Vital Signs Vital Name Observation Time Observation Value Comments Source Systolic blood 2021-10-24 20:45:00 130 mm[Hg] Univer sity [facility] Diastolic blood 2021-10-24 20:45:00 101 [facility]Hg[facility] 2021-10-24 20:45:00 100 /min [facility] Body temperature 2021-10-24 20:45:00 36.78 Maribel [facility] Respiratory rate 2021-10-24 20:45:00 18 /min [facility] Body weight 2021-10-24 20:45:00 70.308 kg [facility] BMI 2021-10-24 20:45:00 25.79 kg/m2 [facility] Oxygen saturation in 2021-10-24 20:45:00 99 /min [facility] Arterial blood by [facility] Pulse oximetry [place] Systolic blood 2021-05-26 10:00:00 112 mm[Hg] [facility] Diastolic blood 2021-05-26 10:00:00 79 mm[facility]Hg] [facility] Heart rate 2021-05-26 10:00:00 85 /min [facility] Body temperature 2021-05-26 10:00:00 36.89 Maribel [facility] Respiratory rate 2021-05-26 10:00:00 16 /min [facility] Oxygen saturation in 2021-05-26 10:00:00 97 /min University of Arterial blood by [facility] Pulse oximetry Branch Body height 2021-05-26 07:32:00 165.1 cm [facility] Body weight 2021-05-26 07:32:00 70.308 kg [facility] BMI 2021-05-26 07:32:00 25.79 kg/m2 [facility] Procedures Procedure Date / Time Performing Clinician Source Performed POCT TEST 2021-10-24 21:02:00 Reji Lizama [facility] URINALYSIS 2021-10-24 21:00:00 Reji Lizama [facility] NOTICE OF PRIVACY 2021-10-24 20:41:13 Doctor Unassigned, No [facility] CONSENT/REFUSAL FOR 2021-10-24 20:41:00 Doctor Unassigned, [facility] T[facility]AT[facility] CT ABDOMEN PELVIS WO 2021-05-26 10:54:38 Gurvinder Genao [facility] CONTRAST [facility] XR ABDOMEN 2 VW 2021-05-26 09:08:18 Gurvinder Genao [facility] LIPASE 2021-05-26 09:04:00 Gurvinder Genao [facility] COMP. METABOLIC PANEL 2021-05-26 09:04:00 Gurvinder Genao [facility] ([id number]) [facility] CBC WITH DIFF 2021-05-26 09:04:00 Gurvinder Genao [facility] URINALYSIS 2021-05-26 09:04:00 Gurvinder Genao [facility] POCT TEST 2021-05-26 08:56:00 Gurvinder Genao [facility] ASSIGNMENT OF BENEFITS 2021-05-26 07:25:23 Doctor Unassigned, No [facility] CONSENT/REFUSAL FOR 2021-05-26 07:19:56 Doctor Unassigned, No [facility] TREATMENT Encounters Start End Encounter Admission Attending Care Care Encounter Source Date/Time Date/Time Type Type Clinicians Facility Department ID 2021-10-24 2021-10-24 Emergency X VI NJFOSTER ERT [id number] Univers 14:47:00 16:01:00 REJI [facility] 2021-10-24 2021-10-24 Emergency Willamina, [facility] [id number] Univers 14:47:00 16:01:00 Reji NIELSEN [id number] ity of [place] 4.2.7.2.686 [facility] [id number] [facility] 084 [place] 2021-10-24 2021-10-24 Orders Doctor DEE [id number] Univers 00:00:00 00:00:00 Only Unassigned, ZEHRA 350.1.13.10 ity of [place] [facility] 4.2.7.2.686 [facility] [id number] [facility] 009 [place] 2021-05-26 2021-05-26 Emergency Birgit, [facility] [id number] Univers 02:23:00 06:55:00 [facility] [id number] it y of [facility] 4.2.7.2.686 [facility] [id number] [address] ([facility]) 2021-05-26 2021-05-26 Emergency X BIRGIT, [facility] ERT [id number] Univers 02:23:00 02:23:00 GURVINDER ity of [facility] 2021-05-22 2021-05-22 Emergency EM Dark, Maria Esther HCACL TERS [id number] [facility] 06:43:00 09:00:00 [id number] [facility] Results Test Description Test Time Test Comments Results Result Comments Source POCT TEST 2021-10-24 21:02:00 Test Item Value Reference Range Interpretation Comme nts POCT PREG (test code = 1605) negative On board controls acceptable with C Line (test code = 3574) present POCT PREG LOT # (test code = 3575) [id number] POCT PREG TEST DATE (test code = 3576) 12-08-2022 Lab Interpretation (test code = 75412-8) Normal [facility] 09:51:07 Test Item Value Reference Range Interpretation Comments APPEARANCE (test code = Cloudy Clear A 3231120850) COLOR (test code = Yellow Yellow 3866144283) PH (test code = 4.8-8.0 8895292696) SP GRAVITY (test code = 1.003-1.030 5189676498) GLU U QUAL (test code = Normal Normal 8218574057) BLOOD (test code = 1+ Negative A 8518699662) KETONES (test code = Negative Negative 1690913607) PROTEIN (test code = Negative Negative 2887-8) UROBILIN (test code = Normal Normal 7143601506) BILIRUBIN (test code = Negative Negative 2958683063) NITRITE (test code = Negative Negative 3171276712) LEUK HAYLIE (test code = Negative Negative 1966696815) RBC/HPF (test code = See_Comment H [Autom ated message] 0443008009) The system [email or web address] generated this result transmitted ref erence range: 0 - 3 HP F. The reference range was not used to int erpret this result as normal/abnormal . WBC/HPF (test code = See_Comment [Autom ated message] 9388633018) The system [email or web address] generated this result transmitted ref erence range: 0 - 5 HP F. The reference range was not used to int erpret this result as normal/abnormal . BACTERIA (test code = Moderate Negative A 6846582921) MUCOUS (test code = Moderate Negative LPF A 1477042569) AMORPHOUS (test code = Rare Rare HPF 3202647355) SQ EPITH (test code = See_Comment H [Auto mated message] 0711631802) The system [email or web address] generated this result transmitted ref erence range: <=2 HPF. The reference range was not used to int erpret this result as normal/abnormal . Lab Interpretation (test Abnormal code = 25259-2) [facility] (54178)2021-05-26 09:31:22 Test Item Value Reference Range Interpretation Comments NA (test code = 138 mmol/L 135-145 9922655873) K (test code = 3.8 mmol/L 3.5-5.0 6082493780) CL (test code = 103 mmol/L 98-108 7596568111) CO2 TOTAL (test code 28 mmol/L 23-31 = 0580549748) AGAP (test code = 2-16 4963973598) BUN (test code = 18 mg/dL 7-23 5580959701) GLUCOSE (test code = 86 mg/dL 70-110 0188244843) CREATININE (test code 0.78 mg/dL 0.50-1.04 = 3835489943) TOTAL BILI (test code 0.2 mg/dL 0.1-1.1 = 8279584615) CALCIUM (test code = 9.1 mg/dL 8.6-10.6 6538136947) T PROTEIN (test code 6.9 g/dL 6.3-8.2 = 5793362418) ALBUMIN (test code = 4.1 g/dL 3.5-5.0 2386176416) ALK PHOS (test code = 42 U/L 34-122 9050320191) ALTv (test code = 10 U/L 5-35 2-6) AST(SGOT) (test code 17 U/L 13-40 = 6467622565) eGFR (test code = mL/min/1.73m2 7864997555) JOE (test code = JOE) Association of [...] urine or abnormalities in imaging tests). [facility] 09:31:22 Test Item Value Reference Range Interpretation Comments LIPASE (test code = 2633269923) 148 U/L 0-220 Lab Interpretation (test code = Normal 61196-1) [facility] WITH [id number] 09:16:20 Test Item Value Reference Range Interpretation Comments WBC (test code = See_Comment [Automated 6690-2) message] The sy stem which generated this result transmitted reference range : 4.30 - 11.10 10*3/?L. The reference range was not used to interpret this result as normal/abnormal . RBC (test code = See_Comment [Automated 789-8) message] The sy stem which generated this [...] RDW-SD (test code = 39.6 fL 39.0-49.9 77444-8) RDW-CV (test code = 11.9 % 12.0-15.5 L 788-0) PLT (test code = See_Comment [Automated 777-3) message] The sy stem which generated this result transmitted reference range : 166 - 358 10*3/ ?L. The reference r hardy was not used to interpret this result as normal/abnormal . MPV (test code = 9.1 fL 9.5-12.9 L 15309-2) NRBC/100 WBC (test See_Comment [Automat ed code = 9563665943) message] The system which generated this result transmitted reference range : 0.0 - 10.0 /100 WBCs. The refer ence range was not u sed to interpret th is result as normal/abnormal . NRBC x10^3 (test code <0.01 See_Comment [Auto mated = 5781486514) message] The s ystem which generated this result transmitted reference range : 10*3/?L. The reference range was not used to interpret this result as normal/abnormal . GRAN MAT (NEUT) % 57.1 % (test code = 770-8) IMM GRAN % (test code 0.40 % = 3154913327) LYMPH % (test code = 32.6 % 736-9) MONO % (test code = 9.3 % 5905-5) EOS % (test code = 0.4 % 713-8) BASO % (test code = 0.2 % 706-2) GRAN MAT x10^3(ANC) 5.50 10*3/uL 1.88-7.09 (test code = 4537997826) IMM GRAN x10^3 (test 0.04 10*3/uL 0.00-0.06 code = 1164445285) LYMPH x10^3 (test code 3.14 10*3/uL 1.32-3.29 = 731-0) MONO x10^3 (test code 0.90 10*3/uL 0.33-0.92 = 742-7) EOS x10^3 (test code = 0.04 10*3/uL 0.03-0.39 711-2) BASO x10^3 (test code <0.03 0.01-0.07 = 704-7) Lab Interpretation Abnormal (test code = 17740-5) [facility] [id number] 08:56:00 Test Item Value Reference Range Interpretation Comments POCT PREG (test code = 1605) negative On board controls acceptable with present C Line (test code = 3574) POCT PREG LOT # (test code = 3575) [id number] POCT PREG TEST DATE (test 10/10/2022 code = 3576) Lab Interpretation (test code = Normal 56077-6) [facility] (ER ONLY)2021-05-22 12:33:00 Test Item Value Reference Range Interpretation Comments URINE HCG TRIAGE (ER ONLY) (test NEGATIVE Negative code = HCGTRIAGE) Urine Test Result: NEGATIVEAre internal controls (presence of a control line & clear background) OK? 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 - XR ABDOMEN [id number] 00:00:00 [facility] : 1985 Sex: F FAX: Maria Esther Mendez MD [phone] [place]: [address]: REG Name: ARACELI HOLDER [place] FSED : 1985 Age/S: 35/F Unit #: [id number] Loc: [place], [place] Phys: Maria Esther Munoz MD Acct: [id number] Dis Date: Status: REG ER PHONE #: Exam Date: 05/22/2021 0844 FAX #: Reason: acute abd chest pain EXAMS: CPT CODE: [id number] XR ABDOMEN 2V 49234 PROCEDURE INFORMATION: Exam: XR AbdomenExam date and [...] M.D. CC: Maria Esther Munoz MD Technologist: Claudia Santoro RT(R) Trnscrd Date/Time/By: 05/22/2021 (0847) : By: Nando Orig Print D/T: S: 05/22/2021 (1670) PAGE 1 Signed Report- XR RIBS UNI W/CXR 3+V [id number] 00:00:00 [facility] : 1985 Sex: F FAX: Helga Delcid MD [phone] [place]: St: REG Name: ARACELI HOLDER [place] : 1985 Age/S: 35/F Unit #: [id number] Loc: [place], [place] Phys: Helga Delcid MD Acct: [id number] Dis Date: Status: REG ER PHONE #: Exam Date: 05/22/2021 0744 FAX #: Reason: rib pain EXAMS: CPT CODE: [id number] XR RIBS UNI W/CXR 3+V [place] [address] PROCEDURE INFORMATION: Exam: XR Right Ribs with [...] Mendez M.D. CC: Helga Delcid MD Technologist: Claudia Santoro RT(R) Trnscrd Date/Time/By: 05/22/2021 (0752) : By: [email or web address] Orig Print D/T: S: 05/22/2021 (075) PAGE 1 Signed Report"
[2021-10-26 18:29] LABS: Urine Blood Trace-intact (Negative); Urine Glucose Negative (Negative); Urine Protein Negative (Negative); Urine Specific Gravity 1.025 (1.005-1.030)
[2021-10-26] MEDS ORDERED: MORPHINE 4 MG/ML SYR ONE (18:37)
[2021-10-26] MEDS ORDERED: NA CHLORIDE 0.9% 1,000 ML ONE (18:37)
[2021-10-26] MEDS ORDERED: ONDANSETRON 4 MG/2 ML VIAL ONE (18:37)
[2021-10-26 18:48] LABS: Urine Bacteria >50 /HPF (<20); Urine RBC <5 /HPF (NONE SEEN)
--- NOTE | 2021-10-26 18:53 | RAD REPORT ---
EXAM DESCRIPTION: CT - Stone Protocol - 10/26/2021 6:36 pm CLINICAL HISTORY: Flank pain. ABD PAIN COMPARISON: Stone Protocol dated 10/24/2021 TECHNIQUE: Axial images were obtained without oral or IV contrast. Lack of contrast limits solid org an and vascular assessment. The dlqcc-so-lvim spans the entirety of the system partially obscuring uppermost abdomen and lung bases. Coronal reformatted images were obtained and reviewed. All CT scans are performed using dose optimization technique as appropriate and may include automated exposure control or mA/KV adjustment according to patient size. FINDINGS: The lower lung alejandro are clear. Imaged portions of the liver and spleen show no suspicious findings on non-contrast imaging. The panc reas and adrenal glands are normal. No pathologic lymphadenopathy in the abdomen or pelvis. No urinary tract stones or obstructive uropathy. No bowel obstruction, free air, free fluid or abscess. Normal appendix noted. No significant bony abnormality. IMPRESSION: No urinary tract stones or obstructive uropathy.
[2021-10-26 18:57] LABS: Hematocrit 37.9 % (36.0-45.0); Lymphocytes % 37.8 % (15.3-44.8); MPV 6.8 fL (7.6-11.3); RBC Red Blood Cell Count 4.21 M/uL (3.86-4.86)
[2021-10-26] MEDS ORDERED: KETOROLAC 30 MG/ML INJ ONE (19:05)
[2021-10-26] MEDS ORDERED: CEFTRIAXONE 1000 MG/VIAL ONE (19:05)
[2021-10-26 19:09] LABS: Potassium 4.1 mmol/L (3.5-5.1); Sodium Level 144 mmol/L (136-145)
[2021-10-26 19:23] LABS: ALT/SGPT 30 U/L (12-78); AST/SGOT 25 U/L (15-37); Alkaline Phosphatase 81 U/L (45-117); Bilirubin Total 0.1 mg/dL (0.2-1.0); Protein, Total 6.9 g/dL (6.4-8.2)
[2021-10-26] MEDS ORDERED: DICYCLOMINE HCL 10 MG CAP ONE (19:23)
[2021-10-26] MEDS ORDERED: FENTANYL CITR 100 MCG/2 ML ONE (19:23)
[2021-10-26 19:40] LABS: Urine Specific Gravity/Preg 1.025 (1.005-1.030)
[2021-10-26 19:49] LABS: BUN Blood Urea Nitrogen 11 mg/dL (7-18); Bicarbonate 29 mmol/L (21-32); Bilirubin Direct < 0.1 mg/dL (0-0.2); Glucose Level 105 mg/dL (74-106)
[2021-10-26 19:57] LABS: Albumin 3.2 g/dL (3.4-5.0); Lipase 169 U/L (73-393)
--- NOTE | 2021-10-26 20:12 | ER ---
Nurse's Notes [facility] Name: Yamilex Sweeney Age: 36 yrs Sex: Female : 1985 Arrival Date: 10/26/2021 Time: 18:03 Bed 24 Private MD: Diagnosis: UTI/ Urinary tract infection, site not specified Presentation: 10/26 18:10 Chief complaint: Patient states: I think Im having gallstones or kidney stones. right 5 upper quadrant pain radiating to the back for a couple days. I cant pee and when I do pee I have blood; Im in so much pain and Im nauseous. Coronavirus screen: Vaccine status: Patient reports being unvaccinated. Client denies travel out of the [place] in the last 14 days. Ebola Screen: Patient negative for fever greater than or equal to 101.5 degrees Fahrenheit, and additional compatible Ebola Virus Disease symptoms Patient denies exposure to infectious person. Patient denies travel to an Ebola-affected area in the 21 days before illness onset. Initial Sepsis Screen: Does the patient meet any 2 criteria? HR > 90 bpm. Does the patient have a suspected source of infection? Yes: Dysuria/Frequency/Urgency/UTI. Risk Assessment: Do you want to hurt yourself or someone else? Patient reports no desire to harm self or others. Onset of symptoms was October 24, 2021. 18:10 Method Of Arrival: Ambulatory [facility] 18:10 Acuity: MARANDA 3 jh5 Triage Assessment: 18:32 General: Appears distressed, uncomfortable, obese, unkempt, Behavior is inappropriate [facility] for age, moaning and throwing herself all over the triage chair; attention seeking. Pain: Complains of pain in back and abdomen. GI: Reports cramping, nausea. RN ANESTHESIOLOGY: 18:32 LMP 10/2021 [facility] Historical: - Allergies: 18:14 No Known Allergies; 5 - PMHx: 18:14 None; [facility] Screenin:32 Abuse screen: Denies threats or abuse. Nutritional screening: No deficits noted. st1 Tuberculosis screening: No symptoms or risk factors identified. Fall Risk None identified. Assessment: 18:53 General: Appears in no apparent distress. Behavior is anxious. Pain: Complains of pain ab2 in abdomen Pain currently is 10 out of 10 on a pain scale. Quality of pain is described as sharp. Neuro: Level of Consciousness is awake, alert, obeys commands, Oriented to person, place, time, situation, Appropriate for age Dobby Loom Chain Pegger are equal bilaterally Gait is steady, Speech. Cardiovascular: Reports None Denies chest pain, shortness of breath, Heart tones S1 S2 present Patient's skin is warm and dry. Chest pain is denied. Respiratory: No deficits noted. Airway is patent Breath sounds are clear Denies cough, shortness of breath. GI: Abdomen is round non-distended, Bowel sounds present X 4 quads. Abd is soft and non tender X 4 quads. Reports lower abdominal pain, upper abdominal pain. : No deficits noted. No signs and/or symptoms were reported regarding the genitourinary system. EENT: No deficits noted. No signs and/or symptoms were reported regarding the EENT system. Derm: No deficits noted. No signs and/or symptoms reported regarding the dermatologic system. Musculoskeletal: No deficits noted. No signs and/or symptoms reported regarding the musculoskeletal system. Vital Signs: 18:10 BP 109 / 54; Pulse 101; Resp 18; Temp 98.7; Pulse Ox 100% ; Weight 80.29 kg; Height 5 [facility] ft. 6 in. (167.64 cm); Pain 10/10; 20:39 BP 124 / 67; Pulse 80; Resp 16; Pulse Ox 99% on R/A; ab2 18:10 Body Mass Index 28.57 (80.29 kg, 167.64 cm) [facility] ED Course: 18:03 Patient arrived in ED. mr 18:14 Triage completed. [facility] 18:16 Mable Barragan F[facility]-C [facility] kb 18:16 Moe Garcia MD is Attending Physician. kb 18:24 Dmitri Mathis is Primary Nurse. ab2 18:30 Urine Microscopic Only Sent. [facility] 18:32 Urine collected: clean catch specimen, cloudy. [facility] 18:32 Patient has correct armband on for positive identification. Bed in low position. Call [facility] light in reach. Side rails up X 1. Warm blanket given. Pulse ox on. NIBP on. 18:32 Arm band placed on right wrist. [facility] 18:33 Urine --Ancillary (enter results) Sent. mh5 18:35 CT Stone Protocol In Process Unspecified. EDMS 18:53 Basic Metabolic Panel Sent. ab2 18:53 CBC with Diff Sent. ab2 18:53 Hepatic Function Sent. ab2 18:53 Lipase Sent. ab2 18:53 Inserted saline lock: 18 gauge in right antecubital area, using aseptic technique. ab2 Blood collected. Administered Medications: 18:51 Drug: NS 0.9% 1000 ml Route: IV; Rate: 1000 ml; Site: right antecubital; ab2 18:51 Drug: Zofran (Ondansetron) 4 mg Route: IVP; Site: right antecubital; ab2 18:51 Drug: morphine 4 mg Route: IVP; Site: right antecubital; ab2 19:08 Drug: Ketorolac 15 mg Route: IVP; Site: right antecubital; st1 19:08 Drug: Rocephin (cefTRIAXone) 1 grams Route: IV; Rate: calculated rate; Site: right st1 antecubital; 19:25 Drug: Bentyl (dicyclomine) 20 mg Route: PO; st1 19:25 Drug: fentaNYL (PF) 25 mcg Route: IVP; Site: right antecubital; st1 20:39 Drug: [place] (HYDROcodone-acetaminophen) 10 mg-325 mg 1 tabs Route: PO; ab2 20:39 Not Given (Do not have medicationn): Capsaicin Cream 0.025 % 1 application Topical once ab2 Outcome: 20:11 Discharge ordered by . kb 20:40 Patient left the ED. ab2 Signatures: Dispatcher [employer] EDMS Mable Barragan, PHARMACY MESSENGER-C PHARMACY MESSENGER-Hattie Kamilah Yuan Maria 5 Marilu Logan, RN RN 5 Dmitri Mathis ab2 Christine Loya, RN RN st1
--- NOTE | 2021-10-26 20:12 | EDPHYS ---
Physician Documentation [facility] Name: Yamilex Sweeney Age: 36 yrs Sex: Female : 1985 Arrival Date: 10/26/2021 Time: 18:03 Bed 24 Private MD: ED Physician Moe Garcia HPI: 10/26 20:58 This 36 yrs old Female presents to ER via Ambulatory with complaints of kb Abdominal Pain. 20:58 The patient has not experienced similar symptoms in the past. The patient has been kb recently seen at the [facility] Emergency Department, yesterday, for similar complaints labs were performed, an ultrasound was performed, CT scan was performed. 20:59 The patient complains of pain in the right flank. The pain radiates to the right upper kb quadrant. Onset: The symptoms/episode began/occurred yesterday. Modifying factors: The symptoms are alleviated by nothing. the symptoms are aggravated by nothing. Associated signs and symptoms: Pertinent positives: hematuria, nausea, Pertinent negatives: diarrhea, dizziness, dysuria, fever, urinary frequency, headache, pain radiating to the lower extremities, vomiting. Severity of pain: At its worst the pain was moderate in the emergency department the pain is unchanged. 20:59 Pt reports right flank pain, blood in urine and difficulty urinating since yesterday. kb HAT MODEL: 18:32 LMP 10/2021 [facility] Historical: - Allergies: 18:14 No Known Allergies; [facility] - PMHx: 18:14 None; [facility] ROS: 20:57 Constitutional: Negative for fever, chills, and weight loss. kb 20:57 Abdomen/GI: Positive for abdominal pain, nausea, Negative for vomiting, diarrhea, constipation. 20:57 Back: Positive for flank pain, on the right. 20:57 All other systems are negative. Exam: 20:58 Constitutional: This is a well developed, well nourished patient who is awake, alert, kb and in no acute distress. Head/Face: Normocephalic, atraumatic. ENT: Moist Mucous membranes Cardiovascular: Regular rate and rhythm with a normal S1 and S2. No gallops, murmurs, or rubs. No pulse deficits. Respiratory: Respirations even and unlabored. No increased work of breathing. Talking in full sentences Abdomen/GI: Soft, non-tender. No distention Skin: Warm, dry with normal turgor. Normal color. MS/ Extremity: Pulses equal, no cyanosis. Neurovascular intact. Full, normal range of motion. Neuro: Awake and alert, GCS 15, oriented to person, place, time, and situation. Moves all extremities. Normal gait. Psych: Awake, alert, with orientation to person, place and time. Behavior, mood, and affect are within normal limits. 20:58 Back: CVA tenderness, that is moderate, is noted on the right. Vital Signs: 18:10 BP 109 / 54; Pulse 101; Resp 18; Temp 98.7; Pulse Ox 100% ; Weight 80.29 kg; Height 5 jh5 ft. 6 in. (167.64 cm); Pain 10/10; 20:39 BP 124 / 67; Pulse 80; Resp 16; Pulse Ox 99% on R/A; ab2 18:10 Body Mass Index 28.57 (80.29 kg, 167.64 cm) jh5 MDM: 18:16 Patient medically screened. kb 20:57 Data reviewed: vital signs, nurses notes. Data interpreted: Pulse oximetry: on room air kb is 99 %. Interpretation: normal. Counseling: I had a detailed discussion with the patient and/or guardian regarding: the historical points, exam findings, and any diagnostic results supporting the discharge/admit diagnosis, lab results, radiology results, the need for outpatient follow up, a general surgeon, a c wpf developer, an OB/Gyne specialist, to return to the emergency department if symptoms worsen or persist or if there are any questions or concerns that arise at home. 10/26 18:16 Order name: Basic Metabolic Panel; Complete Time: 20:06 kb 10/26 18:17 Order name: CBC with Diff; Complete Time: 19:10 kb 10/26 18:17 Order name: Hepatic Function; Complete Time: 20:06 kb 10/26 18:17 Order name: Lipase; Complete Time: 20:06 kb 10/26 18:17 Order name: Urine Microscopic Only; Complete Time: 18:54 kb 10/26 18:29 Order name: Urine Dipstick-Ancillary; Complete Time: 18:35 EDMS 10/26 18:17 Order name: CT Stone Protocol; Complete Time: 18:54 kb 10/26 18:30 Order name: Urine --Ancillary (enter results) 10/26 18:30 Order name: Urine --Ancillary; Complete Time: 19:43 EDAR 10/26 18:50 Order name: Urine Culture [facility] 10/26 18:17 Order name: IV Saline Lock; Complete Time: 18:53 kb 10/26 18:17 Order name: Labs collected and sent; Complete Time: 18:53 kb 10/26 18:17 Order name: Urine Dipstick-Ancillary (obtain specimen); Complete Time: 18:30 kb 10/26 18:17 Order name: Urine Test (obtain specimen); Complete Time: 18:30 kb Administered Medications: 18:51 Drug: NS 0.9% 1000 ml Route: IV; Rate: 1000 ml; Site: right antecubital; ab2 18:51 Drug: Zofran (Ondansetron) 4 mg Route: IVP; Site: right antecubital; ab2 18:51 Drug: morphine 4 mg Route: IVP; Site: right antecubital; ab2 19:08 Drug: Ketorolac 15 mg Route: IVP; Site: right antecubital; st1 19:08 Drug: Rocephin (cefTRIAXone) 1 grams Route: IV; Rate: calculated rate; Site: right st1 antecubital; 19:25 Drug: Bentyl (dicyclomine) 20 mg Route: PO; st1 19:25 Drug: fentaNYL (PF) 25 mcg Route: IVP; Site: right antecubital; st1 20:39 Drug: Ceres (HYDROcodone-acetaminophen) 10 mg-325 mg 1 tabs Route: PO; ab2 20:39 Not Given (Do not have medicationn): Capsaicin Cream 0.025 % 1 application Topical once ab2 Disposition Summary: 10/26/21 20:11 Discharge Ordered Location: Home kb Condition: Stable kb Diagnosis - UTI/ Urinary tract infection, site not specified kb Followup: kb - With: Emergency Department - When: As needed - Reason: Worsening of condition Followup: kb - With: Private Physician - When: 2 - 3 days - Reason: Recheck today's complaints, Continuance of care, Re-evaluation by your physician Discharge Instructions: - Discharge Summary Sheet kb - Urinary Tract Infection, Adult, [id number] kb Forms: - Medication Reconciliation Form kb - Thank You Letter kb - Antibiotic Education kb - Prescription Opioid Use kb Addendum: 10/28/2021 07:32 Co-signature as Attending Physician, Moe Garcia MD I agree with the assessment and k dr plan of care. Signatures: Dispatcher [employer] EDMable Sullivan, CLEANER ASSISTANT-C CLEANER ASSISTANT-Ckb Moe Garcia MD MD kdr Marilu Logan RN RN jh5 Dmitri Mathis2 Christine Loya RN RN st1
[2021-10-26] MEDS ORDERED: HYDROCODONE/APAP 10/325 TAB ONE (20:31)
[2021-10-26 21:01] VITALS: TEMP 98.7
[2021-10-26 21:03] VITALS: BP 124/67; O2SAT 99
== END 2021-10-26 20:40 | disposition home or self-care (01) ==
LOC: ER 18:02
DX: N39.0 Urinary tract infection, site not specified (principal)
CPT/HCPCS: 36415; 74176; 76377; 80048; 80076; 81003; 81015; 81025; 83690; 85025; 87086; 87088; 96374; 96375; 99284; J2405; J3010; J7030

== ENCOUNTER 2021-10-28 11:00 | Emergency (ER) | payer SELFPAY ==
--- OUTSIDE RECORDS SUMMARY | 2021-10-28 11:03 | XMS REPORT | Continuity of Care Document ---
:1985 Author Organization [facility] t Address [address] [place] [address] Care Team Providers Name Role Phone Pcp, Does Not Have A Primary Care Physician ALON Attending Clinician Unavailable Alon ZURITA Attending Clinician RIDDLE Attending Clinician Unavailable [place] ERNESTO Attending Clinician Doctor Unassigned, Name Attending Clinician [...] pain, 1-14 ity of acute acute 00:00: [address] Allergies, Adverse Reactions, Alerts Allergy Allergy Status Severity Reaction(s) Onset Inactive Treating Comm ents Source Name Type Date Date Clinician No Known DA Active U [facility] Allergie 9-29 Clear s 00:00: [address] NO KNOWN Drug Active Univers ALLERGIE Class ity of S [facility] Social History Social Habit Start Date Stop Date Quantity Comments Source Exposure to Not sure [facility] SARS-CoV-2 (event) Medica l Branch Sex Assigned At [birth year] [facility] 00:00:00 00:00:00 [facility] Smoking Status Start Date Stop Date Source Unknown if ever smoked [facility] Medications Ordered Filled Start Stop Current Ordering Indication Dosage Frequency Signature Comments Components Source Medication Medication Date Date Medication? Clinician (SIG) Name Name ondansetron 2021- No 4mg 4 mg, Slow Univers (ZOFRAN 10-27 IV Push, ity of (PF)) 19:15: 18:17 ONCE, 1 [place] injection 4 00 :00 dose, On Medi reed mg [facility] 10/27/21 at 1315, FRANKY morpHINE 2021- No 4mg 4 mg, Slow Un rody injection 4 10-27 IV Push, ity of mg 19:15: 18:17 ONCE, 1 [place] 00 :00 dose, On Medical [facility] 10/27/21 at 1315, STAT NaCl 0.9% 2021- No 1000mL at 999 Uni vers (NS) bolus 10-27 mL/hr, ity of infusion 18:30: 18:50 1,000 mL, [place] as 1,000 mL 00 :00 IV Medical Infusion, Branch ONCE, 1 dose, On [facility] 10/27/21 at 1230, FRANKY ondansetron 2021- Yes 4mg 4 mg, Univ ers (ZOFRAN-ODT 10-24 Oral, ity of ) 22:30: 10:29 ONCE, 1 [place] disintegrat 00 :00 dose, On Medi reed ing tablet Fri Branch 4 mg 10/24/21 at 1630, Routine lactulose 2020- No 45mL 45 mL, Unive rs (CEPHULAC) 05-26 Oral, ity of solution 45 12:15: 11:15 [place]CE[place] 1 [place] mL 00 :00 dose, [facility] 05/26/21 at Branch 0715, FRANKY HYDROcodone 2020- No 1{tbl} 1 tablet, Univers -acetaminop 05-26 Oral, ity of hen (NORCO 11:30: 10:28 ONCE, 1 [place] as 5) 5-325 mg 00 :00 dose, [facility] Med ical tablet 1 05/26/21 at [facility] h tablet 0630, FRANKY famotidine 2020- No 20mg 20 mg, Univ ers (PEPCID AC) 05-26 Oral, ity of tablet 20 08:45: 08:57 ONCE, [place] mg 00 :00 dose, [facility] Medical 05/26/21 at Branch 0345, FRANKY alum-mag 2020- No 30mL 30 mL, Univer s hydroxide-s 05-26 Oral, ity of imeth 08:45: 08:57 ONCE, 1 [place] (MAALOX 00 :00 dose, [facility] PLUS / 05/26/21 at Branch MAG-AL 0345, RFANKY PLUS) 200-200-20 mg/5 mL suspension 30 mL dicyclomine No 20mg 20 mg, Uni vers (BENTYL) 05-26 Intramuscu ity of injection 08:45: 08:45 lar[place]CE [place] 20 mg 00 :00 NOW, 1 Medical dose, [facility] 05/26/21 at 0345, Routine ketorolac No 60mg 60 mg, Unive rs (TORADOL) 05-26 Intramuscu ity of injection 08:45: 09:00 lar, ONCE, [place] 60 mg 00 :00 1 dose, Medical [facility] 05/26/21 at 0345, FRANKY
Fa culty member approving Restricted medication : GURVINDER GENAO diclofenac Yes [id number] 75mg Take 1 U nivers 75 mg EC 8-16 tablet by ity of tablet 00:00: mouth 2 (two) Medical times Branch daily with meals. famotidine Yes [id number] 20mg Take 1 U nivers (PEPCID) 20 8-16 tablet by ity of mg tablet 00:00: mouth 2 (two) Medical times Branch daily. hyoscyamine Yes [id number] .125mg Place 1 Univers sulfate 8-16 tablet ity of (LEVSIN/SL) 00:00: under the [place] 0.125 mg 00 tongue Medical sublingual every 6 Branch tablet (six) hours as needed (Abdominal pain or cramping). diclofenac 2020-0 Yes [id number] 75mg Take 1 U nivers 75 mg EC 8-16 tablet by ity of tablet 00:00: mouth (two) Medical times Branch daily with meals. famotidine 2020-0 Yes [id number] 20mg Take 1 U nivers (PEPCID) 20 8-16 tablet by ity of mg tablet 00:00: mouth (two) Medical times Branch daily. hyoscyamine 2020-[id number] 1 Univers sulfate 8-16 tablet ity of (LEVSIN/SL) 00:00: under the [place] 0.125 mg 00 tongue Medical sublingual every 6 Branch tablet (six) hours as needed (Abdominal pain or cramping). diclofenac 2020-0 Yes [id number] 75mg Take 1 U nivers 75 mg EC 8-16 tablet by ity of tablet 00:00: mouth () Medical times Branch daily with meals. famotidine 2020-0 Yes [id number] 20mg Take 1 U nivers (PEPCID) 20 8-16 tablet by ity of mg tablet 00:00: mouth () Medical times Branch daily. hyoscyamine 1-[id number] 1 Univers sulfate 8-16 tablet ity of (LEVSIN/SL) 00:00: under the [place] 0.125 mg 00 tongue Medical sublingual every 6 Branch tablet (six) hours as needed (Abdominal pain or cramping). diclofenac 2020-0 Yes [id number] 75mg Take 1 U nivers 75 mg EC 8-16 tablet by ity of tablet 00:00: mouth (two) Medical times Branch daily with meals. famotidine 1-0 Yes [id number] 20mg Take 1 U nivers (PEPCID) 20 8-16 tablet by ity of mg tablet 00:00: mouth (two) Medical times Branch daily. hyoscyamine 1-[id number] 1 Univers sulfate 8-16 tablet ity of (LEVSIN/SL) 00:00: under the [place] 0.125 mg 00 tongue Medical sublingual every 6 Branch tablet (six) hours as needed (Abdominal pain or cramping). Vital Signs Vital Name Observation Time Observation Value Comments Source Diastolic blood 2021-10-27 16:11:00 113 mm[Hg] Unive rsity of pressure [place] [facility] Heart rate 2021-10-27 16:11:00 78 /min Universi ty of [facility] [place] [facility] Body temperature 2021-10-27 16:11:00 36.83 Maribel Univ ersity of [facility] Branch Respiratory rate 2021-10-27 16:11:00 21 /min Univ ersity of [place] [facility] Body weight 2021-10-27 16:11:00 70.308 kg Universi ty of [facility] BMI 2021-10-27 16:11:00 25.79 kg/m2 Universi ty of [facility] Oxygen saturation in 2021-10-27 16:11:00 99 /min University of Arterial blood by [facility] Pulse oximetry Branch Systolic blood 2021-10-27 16:11:00 185 mm[Hg] Univer sity of pressure [place] [facility] BMI 2021-10-24 20:45:00 25.79 kg/m2 Universi ty of [facility] Branch Oxygen saturation in 2021-10-24 20:45:00 99 /min University of Arterial blood by [facility] Pulse oximetry Branch Systolic blood 2021-10-24 20:45:00 130 mm[Hg] Univer sity of pressure [place] [facility] Diastolic blood 2021-10-24 20:45:00 101 mm[Hg] Unive rsity of pressure [facility] Branch Heart rate 2021-10-24 20:45:00 100 /min Universi ty of [facility] Body temperature 2021-10-24 20:45:00 36.78 Maribel Univ ersity of [facility] Branch Respiratory rate 2021-10-24 20:45:00 18 /min Univ ersity of [place] [facility] Body weight 2021-10-24 20:45:00 70.308 kg Universi ty of [facility] Branch Systolic blood 2021-05-26 10:00:00 112 mm[Hg] Univer sity of pressure [facility] Branch Diastolic blood 2021-05-26 10:00:00 79 mm[Hg] Unive rsity of pressure [facility] Branch Heart rate 2021-05-26 10:00:00 85 /min [facility] Body temperature 2021-05-26 10:00:00 36.89 Maribel [facility] Respiratory rate 2021-05-26 10:00:00 16 /min [facility] Oxygen saturation in 2021-05-26 10:00:00 97 /min [facility] Arterial blood by [facility] Pulse oximetry [place] Body height 2021-05-26 07:32:00 165.1 cm [facility] Body weight 2021-05-26 07:32:00 70.308 kg [facility] BMI 2021-05-26 07:32:00 25.79 kg/m2 [facility] Procedures Procedure Date / Time Performing Clinician Source Performed POCT TEST 2021-10-27 18:03:00 Lily Childers [facility] LIPASE 2021-10-27 17:57:00 Lily Childers [facility] COMP. METABOLIC PANEL 2021-10-27 17:57:00 Lily Childers [facility] ([id number]) [facility] CBC WITH DIFF 2021-10-27 17:57:00 Alon [facility] URINALYSIS 2021-10-27 17:57:00 [facility] URINE DRUG (IMMUNOASSAY) 2021-10-27 17:57:00 Lily Childers [facility] DRUG [facility] nch SCREEN W/O REFLEX CONSENT/REFUSAL FOR 2021-10-27 16:07:03 Doctor Unassigned, No [facility] POCT TEST 2021-10-24 21:02:00 Reji [facility] URINALYSIS 2021-10-24 21:00:00 Reji Lizama [facility] NOTICE OF PRIVACY 2021-10-24 20:41:13 Doctor Unassigned, No [facility] PRACTICES [facility] CONSENT/REFUSAL FOR 2021-10-24 20:41:00 Doctor Unassigned, No [facility] CT ABDOMEN PELVIS WO 2021-05-26 10:54:38 [facility] CONTRAST [facility] XR ABDOMEN 2 VW 2021-05-26 09:08:18 Gurvinder Genao [facility] LIPASE 2021-05-26 09:04:00 Gurvinder Genao [facility] COMP. METABOLIC PANEL 2021-05-26 09:04:00 Gurvinder Genao [facility] ([id number]) [facility] CBC WITH DIFF 2021-05-26 09:04:00 Gurvinder Genao [facility] URINALYSIS 2021-05-26 09:04:00 Gurvinder Genao [facility] POCT TEST 2021-05-26 08:56:00 Gurvinder Genao [facility] ASSIGNMENT OF BENEFITS 2021-05-26 07:25:23 Doctor Unassigned, No [facility] CONSENT/REFUSAL FOR 2021-05-26 07:19:56 Doctor Unassigned, No [facility] DIAGNOSIS AND TREATMENT [facility] Encounters Start End Encounter Admission Attending Care Care Encounter Source Date/Time Date/Time Type Type Clinicians Facility Department ID 2021-10-27 2021-10-27 [id number] Univers 10:14:00 13:20:00 LILY tao [facility] 2021-10-27 2021-10-27 [facility] [id number] Univers 10:14:00 13:20:00 Lily NIELSEN [id number] i ty [facility] 4.2.7.2.686 [facility] [id number] [address] 2021-10-24 2021-10-24 Emergency X RIDKYLE, [facility] ERT [id number] Univers 14:47:00 16:01:00 REJI burger [facility] 2021-10-24 2021-10-24 Emergency [place], [facility] [id number] Univers 14:47:00 16:01:00 Reji NIELSEN [id number] ity [facility] 4.2.7.2.686 [facility] [id number] [address] 2021-10-24 2021-10-24 Orders Doctor DEE [id number] Univers 00:00:00 00:00:00 Only Unassigned, ZEHRA [id number] ity of [facility] 4.2.7.2.686 Mik[place] as [id number] [facility] 009 Branch 2021-05-26 2021-05-26 Emergency Birgit, [facility] [id number] Univers 02:23:00 06:55:00 [facility] [id number] it y of [facility] 4.2.7.2.686 [place] [facility] [id number] [address] ([facility]) 2021-05-26 2021-05-26 Emergency X BIRGIT, [facility] ERT [id number] Univers 02:23:00 02:23:00 GURVINDER ity [facility] 2021-05-22 2021-05-22 Emergency EM Dark, Maria Esther [id number] [facility] 06:43:00 09:00:00 [id number] [facility] Results Test Description Test Time Test Comments Results Result Comments Source CBC WITH DIFF 2021-10-27 18:38:22 Test Item Value Reference Range Interpretation Comme nts WBC (test code = 6690-2) See_Comment [A utomated message] The system which ge nerated this result transmit wong reference range: 4.30 - 1 1.10 10*3/?L. The reference r hardy was not used to interpr et this result as normal/abnor mal. RBC (test code = 789-8) See_Comment [Au tomated message] The system which Solx nerated this result transmit wong reference range: 3.93 - 5 .25 10*6/?L. The reference r hardy was not used to interpr et this result as normal/abnor mal. HGB (test code = 718-7) 12.4 g/dL 11.6-15.0 HCT (test code = 4544-3) 37.7 % 35.7-45.2 MCV (test code = 787-2) 92.0 fL 80.6-95.5 MCH (test code = 785-6) 30.2 pg 25.9-32.8 MCHC (test code = 786-4) 32.9 g/dL 31.6-35.1 RDW-SD (test code = 30205-8) 39.7 fL 39.0-49.9 RDW-CV (test code = 788-0) 11.9 % 12.0-15.5 L PLT (test code = 777-3) See_Comment [Au tomated message] The system which ge nerated this result transmit wong reference range: 166 - 35 8 10*3/?L. The reference range was not used to interpret th is result as normal/abnormal . MPV (test code = 49550-3) 8.7 fL 9.5-12.9 L NRBC/100 WBC (test code = See_Comment [ Automated message] The 1700475231) system which ge nerated this result transmit wong reference range: 0.0 - 10 .0 /100 WBCs. The reference r hardy was not used to interpr et this result as normal/abnor mal. NRBC x10^3 (test code = <0.01 See_Comment [Au tomated message] The 7237812613) system which ge nerated this result transmit wong reference range: 10*3/?L. The reference range was not u sed to interpret this result as normal/abnormal . GRAN MAT (NEUT) % (test code 55.0 % = 770-8) IMM GRAN % (test code = 3.20 % 0996465370) LYMPH % (test code = 736-9) 32.2 % MONO % (test code = 5905-5) 7.9 % EOS % (test code = 713-8) 1.0 % BASO % (test code = 706-2) 0.7 % GRAN MAT x10^3(ANC) (test 4.61 10*3/uL 1.88-7.09 code = 5885802755) IMM GRAN x10^3 (test code = 0.27 10*3/uL 0.00-0.06 H 6702121475) LYMPH x10^3 (test code = 2.70 10*3/uL 1.32-3.29 731-0) MONO x10^3 (test code = 0.66 10*3/uL 0.33-0.92 742-7) EOS x10^3 (test code = 0.08 10*3/uL 0.03-0.39 711-2) BASO x10^3 (test code = 0.06 10*3/uL 0.01-0.07 704-7) Lab Interpretation (test Abnormal code = 77640-5) [facility]. METABOLIC PANEL (33340)2021-10-27 18:22:58 Test Item Value Reference Range Interpretation Comments NA (test code = 137 mmol/L 135-145 3328159787) K (test code = 4.3 mmol/L 3.5-5.0 0217778528) CL (test code = 103 mmol/L 98-108 4993363750) CO2 TOTAL (test code = 30 mmol/L 23-31 4815270149) AGAP (test code = 2-16 0433944674) BUN (test code = 13 mg/dL 7-23 2450822952) GLUCOSE (test code = 90 mg/dL 70-110 5215230752) CREATININE (test code = 0.52 mg/dL 0.50-1.04 7689726905) TOTAL BILI (test code = 0.2 mg/dL 0.1-1.8 6132677399) CALCIUM (test code = 8.4 mg/dL 8.6-10.6 L 6402634320) T PROTEIN (test code = 6.9 g/dL 6.3-8.2 2986752799) ALBUMIN (test code = 3.8 g/dL 3.5-5.0 1071978300) ALK PHOS (test code = 67 U/L 34-122 4460770333) ALTv (test code = 25 U/L 5-35 1742-6) AST(SGOT) (test code = 33 U/L 13-40 6533170173) eGFR (test code = mL/min/1.73m2 7975230721) JOE (test code = JOE) Association of Glomerular Filtration Rate (GFR) and Staging of Kidney Disease* + --+ --+ ------+| GFR (mL/min/1.73 m2) ?| With Kidney Damage ?| ?Without Kidney Damage+ --------+ --------+ +| ?>90 ?| ?Stage one ?| ? Normal ?+ ---+ ---+ -------+| ?60-89 ?| ?Stage two ?| ? Decreased GFR ? + --+ --+ ------+| ?30-59 ?| ?Stage three ?| ? Stage three ? + --+ --+ ------+| ?15-29 ?| ?Stage four ? | ? Stage four ?+ ---+ ---+ -------+| ?<15 (or dialysis) ? ?| ?Stage five ? | ? Stage five ?+ ---+ ---+ -------+ *Each stage assumes the associated GFR level [...] or urine or abnormalities in imaging tests). Lab Interpretation Abnormal (test code = 99453-8) [facility]17 Test Item Value Reference Range Interpretation Comments LIPASE (test code = 3489603830) 856 U/L 0-220 H Lab Interpretation (test code = Abnormal 13372-3) [facility] [id number] 18:03:00 Test Item Value Reference Range Interpretation Comments POCT PREG (test code = 1605) NEGATIVE On board controls acceptable with present C Line (test code = 3574) POCT PREG LOT # (test code = 3575) [id number] POCT PREG TEST DATE (test 12/08/2022 code = 3576) Lab Interpretation (test code = Normal 80013-9) [facility] [id number] 21:02:00 Test Item Value Reference Range Interpretation Comments POCT PREG (test code = 1605) negative On board controls acceptable with present C Line (test code = 3574) POCT PREG LOT # (test code = 3575) [id number] POCT PREG TEST DATE (test 12-08-2022 code = 3576) Lab Interpretation (test code = Normal 75021-6) [facility] 09:51:07 Test Item Value Reference Range Interpretation Comments APPEARANCE (test code = Cloudy Clear A 1734280053) COLOR (test code = Yellow Yellow 4335986383) PH (test code = 4.8-8.0 2951488883) SP GRAVITY (test code = 1.003-1.030 4892616686) GLU U QUAL (test code = Normal Normal 6473360880) BLOOD (test code = 1+ Negative A 3599245491) KETONES (test code = Negative Negative 8172266500) PROTEIN (test code = Negative Negative 2887-8) UROBILIN (test code = Normal Normal 0158104705) BILIRUBIN (test code = Negative Negative 4838911609) NITRITE (test code = Negative Negative 6709843386) LEUK HAYLIE (test code = Negative Negative 0292957980) RBC/HPF (test code = See_Comment H [Autom ated message] 8631815635) The system [employer] generated this result transmitted ref erence range: 0 - 3 HP F. The reference range was not used to int erpret this result as normal/abnormal . WBC/HPF (test code = See_Comment [Autom ated message] 9798938735) The system [employer] generated this result transmitted ref erence range: 0 - 5 HP F. The reference range was not used to int erpret this result as normal/abnormal . BACTERIA (test code = Moderate Negative A 3446048157) MUCOUS (test code = Moderate Negative LPF A 8553502247) AMORPHOUS (test code = Rare Rare HPF 7486594490) SQ EPITH (test code = See_Comment H [Auto mated message] 4089444990) The system [employer] generated this result transmitted ref erence range: <=2 HPF. The reference range was not used to int erpret this result as normal/abnormal . Lab Interpretation (test Abnormal code = 84678-3) [facility] (68831)2021-05-26 09:31:22 Test Item Value Reference Range Interpretation Comments NA (test code = 138 mmol/L 135-145 0577157844) K (test code = 3.8 mmol/L 3.5-5.0 3007234108) CL (test code = 103 mmol/L 98-108 1360702220) CO2 TOTAL (test code 28 mmol/L 23-31 = 0083744050) AGAP (test code = 2-16 0633892640) BUN (test code = 18 mg/dL 7-23 2034353525) GLUCOSE (test code = 86 mg/dL 70-110 0396766823) CREATININE (test code 0.78 mg/dL 0.50-1.04 = 9311135407) TOTAL BILI (test code 0.2 mg/dL 0.1-1.1 = 9436696487) CALCIUM (test code = 9.1 mg/dL 8.6-10.6 2071409438) T PROTEIN (test code 6.9 g/dL 6.3-8.2 = 3636879602) ALBUMIN (test code = 4.1 g/dL 3.5-5.0 0223665881) ALK PHOS (test code = 42 U/L 34-122 4196411587) ALTv (test code = 10 U/L 5-35 2-6) AST(SGOT) (test code 17 U/L 13-40 = 9720903439) eGFR (test code = mL/min/1.73m2 7119502328) JOE (test code = JOE) Association of [...] or abnormalities in imaging tests). [facility] 09:31:22 Test Item Value Reference Range Interpretation Comments LIPASE (test code = 6450909704) 148 U/L 0-220 Lab Interpretation (test code = Normal 89380-8) [facility] [id number] 09:16:20 Test Item Value Reference Range Interpretation Comments WBC (test code = See_Comment [Automated 7790-2) message] The sy stem which generated this result transmitted reference range : 4.30 - 11.10 10*3/?L. The reference range was not used to interpret this result as normal/abnormal . RBC (test code = See_Comment [Automated 479-8) message] The sy stem which generated this [...] RDW-SD (test code = 39.6 fL 39.0-49.9 44269-4) RDW-CV (test code = 11.9 % 12.0-15.5 L 788-0) PLT (test code = See_Comment [Automated 067-3) message] The sy stem which generated this result transmitted reference range : 166 - 358 10*3/ ?L. The reference r hardy was not used to interpret this result as normal/abnormal . MPV (test code = 9.1 fL 9.5-12.9 L 74402-7) NRBC/100 WBC (test See_Comment [Automat ed code = 9867720176) message] The system which generated this result transmitted reference range : 0.0 - 10.0 /100 WBCs. The refer ence range was not u sed to interpret th is result as normal/abnormal . NRBC x10^3 (test code <0.01 See_Comment [Auto mated = 5557275218) message] The s ystem which generated this result transmitted reference range : 10*3/?L. The reference range was not used to interpret this result as normal/abnormal . GRAN MAT (NEUT) % 57.1 % (test code = 770-8) IMM GRAN % (test code 0.40 % = 1518125072) LYMPH % (test code = 32.6 % 736-9) MONO % (test code = 9.3 % 5905-5) EOS % (test code = 0.4 % 713-8) BASO % (test code = 0.2 % 706-2) GRAN MAT x10^3(ANC) 5.50 10*3/uL 1.88-7.09 (test code = 6001715014) IMM GRAN x10^3 (test 0.04 10*3/uL 0.00-0.06 code = 6127072657) LYMPH x10^3 (test code 3.14 10*3/uL 1.32-3.29 = 731-0) MONO x10^3 (test code 0.90 10*3/uL 0.33-0.92 = 742-7) EOS x10^3 (test code = 0.04 10*3/uL 0.03-0.39 711-2) BASO x10^3 (test code <0.03 0.01-0.07 = 704-7) Lab Interpretation Abnormal (test code = 60398-7) [facility] [id number] 08:56:00 Test Item Value Reference Range Interpretation Comments POCT PREG (test code = 1605) negative On board controls acceptable with present C Line (test code = 3574) POCT PREG LOT # (test code = 3575) [id number] POCT PREG TEST DATE (test 10/10/2022 code = 3576) Lab Interpretation (test code = Normal 76846-5) [facility] ([facility] ONLY)2021-05-22 12:33:00 Test Item Value Reference Range Interpretation Comments URINE HCG TRIAGE (ER ONLY) (test NEGATIVE Negative code = HCGTRIAGE) Urine Test Result: NEGATIVEAre internal controls (presence of a control line & clear background) OK? 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 - XR ABDOMEN [id number] 00:00:00 [facility] ARACELI HOLDER : 1985 Sex: F FAX: Y Dark,Maria Esther MD [phone] [place]: St: REG Name: ARACELI HOLDER [place] FSED : 1985 Age/S: 35/F Unit #: [id number] Loc: [place] Phys: Maria Esther Munoz MD Acct: [id number] Dis Date: Status: REG ER PHONE #: Exam Date: 05/22/2021829 FAX #: Reason: acute abd chest pain EXAMS: CPT CODE: [id number] XR ABDOMEN 2V 53008 PROCEDURE INFORMATION: Exam: XR AbdomenExam date and [...] CC: Maria Esther Munoz MD Technologist: RT Kavin(R) Trnscrd Date/Time/By: 05/22/2021 (47) : By: Nando Orig Print D/T: S: 05/22/2021 (7138) PAGE 1 Signed Report- XR RIBS UNI W/CXR 3+V [id number] 00:00:00 [facility]: ARACELI HOLDER : 1985 Sex: F FAX: Helga Delcid MD [phone] [place]: St: REG Name: ARACELI HOLDER [place] FSED : 1985 Age/S: 35/F Unit #: [id number] Loc: [place] Phys: Helga Delcid MD Acct: [id number] Dis Date: Status: REG ER PHONE #: Exam Date: 05/22/2021 0744 FAX #: Reason: rib pain EXAMS: CPT CODE: [id number] XR RIBS UNI W/CXR 3+V RT 18615 PROCEDURE INFORMATION: Exam: XR Right Ribs with [...] M.D. CC: Helga Delcid MD Technologist: RT Kavin(R) Trnscrd Date/Time/By: 05/22/2021 (075) : By: [email or web address] [facility] Print D/T: S: 05/22/2021 (075) PAGE 1 Signed Report"
[2021-10-28] MEDS ORDERED: NA CHLORIDE 0.9% 0 ML ONE (11:49)
[2021-10-28] MEDS ORDERED: ONDANSETRON 4 MG/2 ML VIAL ONE (11:50)
[2021-10-28] MEDS ORDERED: MORPHINE 2 MG/ML SYR ONE (11:50)
[2021-10-28] MEDS ORDERED: NA CHLORIDE 0.9% 1,000 ML ONE (11:50)
[2021-10-28] MEDS ORDERED: KETOROLAC 30 MG/ML INJ ONE (11:50)
--- NOTE | 2021-10-28 13:12 | ER ---
Nurse's Notes [facility] Name: Yamilex Sweeney Age: 36 yrs Sex: Female : 1985 Arrival Date: 10/28/2021 Time: 11:01 Bed 17 Private MD: Diagnosis: Abdominal pain, unspecified Presentation: 10/28 11:11 Chief complaint: Patient states: Right lower quadrant abdominal pain that started ww yesterday and she is now unable to urinate. Coronavirus screen: Vaccine status: Patient reports being unvaccinated. Client denies travel out of the [place] in the last 14 days. Ebola Screen: Patient negative for fever greater than or equal to 101.5 degrees Fahrenheit, and additional compatible Ebola Virus Disease symptoms Patient denies exposure to infectious person. Patient denies travel to an Ebola-affected area in the 21 days before illness onset. Initial Sepsis Screen: Does the patient meet any 2 criteria? No. Patient's initial sepsis screen is negative. Does the patient have a suspected source of infection? No. Patient's initial sepsis screen is negative. Risk Assessment: Do you want to hurt yourself or someone else? Patient reports no desire to harm self or others. Onset of symptoms was October 27, 2021. 11:11 Method Of Arrival: Ambulatory ww 11:11 Acuity: MARANDA 3 ww 11:31 Chief complaint: Patient stated she is COVID positive after being placed in the room. eo2 Triage Assessment: 11:12 General: Appears uncomfortable, Behavior is cooperative, appropriate for age. Pain: ww Complains of pain in right lower quadrant and left lower quadrant. Neuro: Level of Consciousness is awake, alert, obeys commands, Oriented to person, place, time, situation, Appropriate for age. Cardiovascular: Denies chest pain, Capillary refill < 3 seconds Patient's skin is warm and dry. Respiratory: Airway is patent Respiratory effort is even, unlabored, Respiratory pattern is regular, symmetrical. GI: Abdomen is tender to palpation in right lower quadrant and left lower quadrant. : Reports inability to void. Derm: Skin is intact, Skin is pink, warm \\T\\ dry. Skin temperature is. 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 - Social history:: Smoking status: Patient reports the use of cigarette tobacco products, smokes one-half pack cigarettes per day. - Family history:: not pertinent. Screenin:14 Abuse screen: Denies threats or abuse. Denies injuries from another. Nutritional ww screening: No deficits noted. Tuberculosis screening: No symptoms or risk factors identified. Fall Risk None identified. 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 12:44 Reassessment: pt noted to have possibly eloped with IV in place, pt initially told eo2 staff that she was going to the restroom. Staff called imaging, pt not there. Staff checked outside the ER, pt not there either. PD to be called and made aware. Dr. Kirk made aware. 13:10 Reassessment: Attempted to call number on file. No answer. Went straight to [facility] Vital Signs: 11:11 BP 122 / 75; Pulse 81; Resp 18; Temp 97.7; Pulse Ox 100% on R/A; Weight 79.83 kg; ww Height 5 ft. 5 in. (165.10 cm); Pain 9/10; 11:30 BP 132 / 82; Pulse 80; Resp 17; Pulse Ox 98% ; Pain 10/10; eo2 11:11 Body Mass Index 29.29 (79.83 kg, 165.10 cm) ED Course: 11:01 Patient arrived in ED. ja2 11:12 Triage completed. ww 11:12 Arm band placed on right wrist. ww 11:18 Sera Anderson, MEGGAN is Primary Nurse. eo2 11:32 Yemi Kirk MD is Attending Physician. [facility] 11:59 Basic Metabolic Panel Sent. ww 11:59 Hepatic Function Sent. ww 11:59 Lipase Sent. ww 12:00 Patient has correct armband on for positive identification. Placed in gown. Bed in low ww position. Call light in reach. Side rails up X 1. Pulse ox on. NIBP on. 12:00 Initial lab(s) drawn, by me, sent to lab. Inserted saline lock: 20 gauge in right ww antecubital area, using aseptic technique. Blood collected. Administered Medications: 11:48 Drug: NS 0.9% 1000 ml Route: IV; Rate: 1 bolus; Site: right antecubital; 11:55 Drug: morphine 2 mg Route: IVP; Site: right antecubital; 11:57 Drug: Ketorolac 30 mg Route: IVP; Site: right antecubital; 11:59 Drug: Zofran (Ondansetron) 4 mg Route: IVP; Site: right antecubital; Outcome: 13:09 Eloped from patient exam room, after seeing physician ss 13:09 Condition: stable 13:20 Patient left the ED. Signatures: Yemi Kirk MD MD cha Smirch, Shelby, RN RN Marilu Longo Whitney, RN RN Sera Anderson RN RN eo2 Corrections: (The following items were deleted from the chart) 12:50 12:44 Reassessment: pt noted to have possibly eloped with IV in place, pt initially eo2 told staff that she was going to the restroom. PD to be called and made aware. eo2
--- NOTE | 2021-10-28 13:12 | EDPHYS ---
Physician Documentation [facility] Name: Yamilex Sweeney Age: 36 yrs Sex: Female : 1985 Arrival Date: 10/28/2021 Time: 11:01 Bed 17 Private MD: MARIZA Physician Yemi Kirk HPI: 10/28 13:04 This 36 yrs old Female presents to ER via Ambulatory with complaints of libby Abdominal Pain. 13:04 The patient presents with abdominal pain right lower quadrant. Onset: The libby symptoms/episode began/occurred 1 day(s) ago. The symptoms do not radiate. Associated signs and symptoms: Pertinent positives:. The symptoms are described as sharp. Modifying factors: The symptoms are alleviated by nothing, the symptoms are aggravated by movement. Severity of pain: At its worst the pain was moderate in the emergency department the pain is unchanged. The patient has not experienced similar symptoms in the past. 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 - Social history:: Smoking status: Patient reports the use of cigarette tobacco products, smokes one-half pack cigarettes per day. - Family history:: not pertinent. ROS: 13:04 Constitutional: Negative for fever, chills, and weight loss, Eyes: Negative for injury, libby pain, redness, and discharge, ENT: Negative for injury, pain, and discharge, Neck: Negative for injury, pain, and swelling, Cardiovascular: Negative for chest pain, palpitations, and edema, Respiratory: Negative for shortness of breath, cough, wheezing, and pleuritic chest pain, Back: Negative for injury and pain, : Negative for injury, bleeding, discharge, and swelling, MS/Extremity: Negative for injury and deformity, Skin: Negative for injury, rash, and discoloration, Neuro: Negative for headache, weakness, numbness, tingling, and seizure, Psych: Negative for depression, anxiety, suicide ideation, homicidal ideation, and hallucinations, Allergy/Immunology: Negative for hives, rash, and allergies, Endocrine: Negative for neck swelling, polydipsia, polyuria, polyphagia, and marked weight changes, Hematologic/Lymphatic: Negative for swollen nodes, abnormal bleeding, and unusual bruising. 13:04 Abdomen/GI: Positive for abdominal pain, of the right lower quadrant. Exam: 13:04 Constitutional: This is a well developed, well nourished patient who is awake, alert, libby and in no acute distress. Head/Face: Normocephalic, atraumatic. Eyes: Pupils equal round and reactive to light, extra-ocular motions intact. Lids and lashes normal. Conjunctiva and sclera are non-icteric and not injected. Cornea within normal limits. Periorbital areas with no swelling, redness, or edema. ENT: Nares patent. No nasal discharge, no septal abnormalities noted. Tympanic membranes are normal and external auditory canals are clear. Oropharynx with no redness, swelling, or masses, exudates, or evidence of obstruction, uvula midline. Mucous membranes moist. Neck: Trachea midline, no thyromegaly or masses palpated, and no cervical lymphadenopathy. Supple, full range of motion without nuchal rigidity, or vertebral point tenderness. No Meningismus. Chest/axilla: Normal chest wall appearance and motion. Nontender with no deformity. No lesions are appreciated. Cardiovascular: Regular rate and rhythm with a normal S1 and S2. No gallops, murmurs, or rubs. Normal PMI, no JVD. No pulse deficits. Respiratory: Lungs have equal breath sounds bilaterally, clear to auscultation and percussion. No rales, rhonchi or wheezes noted. No increased work of breathing, no retractions or nasal flaring. Back: No spinal tenderness. No costovertebral tenderness. Full range of motion. Skin: Warm, dry with normal turgor. Normal color with no rashes, no lesions, and no evidence of cellulitis. MS/ Extremity: Pulses equal, no cyanosis. Neurovascular intact. Full, normal range of motion. Neuro: Awake and alert, GCS 15, oriented to person, place, time, and situation. Cranial nerves II-XII grossly intact. Motor strength 5/5 in all extremities. Sensory grossly intact. Cerebellar exam normal. Normal gait. Psych: Awake, alert, with orientation to person, place and time. Behavior, mood, and affect are within normal limits. 13:04 Abdomen/GI: Inspection: abdomen appears normal, Bowel sounds: normal, Palpation: mild abdominal tenderness, in the right lower quadrant. Vital Signs: 11:11 BP 122 / 75; Pulse 81; Resp 18; Temp 97.7; Pulse Ox 100% on R/A; Weight 79.83 kg; ww Height 5 ft. 5 in. (165.10 cm); Pain 9/10; 11:30 BP 132 / 82; Pulse 80; Resp 17; Pulse Ox 98% ; Pain 10/10; eo2 11:11 Body Mass Index 29.29 (79.83 kg, 165.10 cm) ww MDM: 11:32 Patient medically screened. libby 13:10 Differential diagnosis: appendicitis, bowel obstruction, cholecystitis, Cholelithiasis, libby diverticulitis, Ectopic , Hepatitis, non-specific abd pain, Ovarian Torsion, pancreatitis, Peptic Ulcer Disease, Pyelonephritis, Ureterolithiasis, urinary tract infection. Data reviewed: vital signs, nurses notes. 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 Counseling: I had a detailed discussion with the patient and/or guardian regarding:. 10/28 11:41 Order name: Basic Metabolic Panel [facility] 10/28 11:41 Order name: Hepatic Function [facility] 10/28 11:41 Order name: Lipase [facility] 10/28 11:41 Order name: IV Saline Lock; Complete Time: 12:00 [facility] 10/28 11:41 Order name: Labs collected and sent; Complete Time: 12:00 [facility] 10/28 11:41 Order name: Urine Dipstick-Ancillary (obtain specimen) libby Administered Medications: 11:48 Drug: NS 0.9% 1000 ml Route: IV; Rate: 1 bolus; Site: right antecubital; ww 11:55 Drug: morphine 2 mg Route: IVP; Site: right antecubital; ww 11:57 Drug: Ketorolac 30 mg Route: IVP; Site: right antecubital; ww 11:59 Drug: Zofran (Ondansetron) 4 mg Route: IVP; Site: right antecubital; ww Disposition Summary: 10/28/21 13:12 Eloped Disposition: after being seen by provider libby Problem: an acute exacerbation libby Symptoms: are unchanged libby Reason: unknown libby Condition: Undetermined libby Diagnosis - Abdominal pain, unspecified libby Followup: [facility] - With: Private Physician - When: Upon discharge from the Emergency Department - Reason: Recheck today's complaints, Continuance of care, Re-evaluation by your physician Signatures: Dispatcher [employer] Yemi Lane MD MD cha Wood, Whitney RN RN ww
[2021-10-28 13:32] VITALS: TEMP 97.7
[2021-10-28 13:34] VITALS: BP 132/82; O2SAT 98
== END 2021-10-28 13:20 | disposition left against medical advice (07) ==
LOC: ER 11:00
DX: R10.31 Right lower quadrant pain (principal); F17.210 Nicotine dependence, cigarettes, uncomplicated
CPT/HCPCS: J2270; J2405; J7030

== ENCOUNTER 2022-03-28 14:09 | Emergency (ER) | payer SELFPAY ==
--- OUTSIDE RECORDS SUMMARY | 2022-03-28 14:12 | XMS REPORT | Continuity of Care Document ---
:1985 Author Organization [facility] t Address [address] [place] [address] Care Team Providers Name Role Phone Pcp, Does Not Have A Primary Care Physician ALON Attending Clinician Unavailable Alon ZURITA Attending Clinician RIDDLE Attending Clinician Unavailable [place] ERNESTO Attending Clinician Doctor Unassigned, Name Attending [...] 1-14 ity of acute acute 00:00: [address] Allergies, Adverse Reactions, Alerts Allergy Allergy Status Severity Reaction(s) Onset Inactive Treating Comm ents Source Name Type Date Date Clinician No Known DA Active U [facility] Allergie 9-29 Clear s 00:00: [address] NO KNOWN Drug Active Univers ALLERGIE Class ity of S [facility] Social History Social Habit Start Date Stop Date Quantity Comments Source Exposure to Not sure [facility] SARS-CoV-2 (event) Medica l Branch Sex Assigned At [birth year] [facility] 00:00:00 00:00:00 [facility] Smoking Status Start Date Stop Date Source Unknown if ever smoked [facility] Medications Ordered Filled Start Stop Current Ordering Indication Dosage Frequency Signature Comments Components Source Medication Medication Date Date Medication? Clinician (SIG) Name Name ondansetron 2021- No 4mg 4 mg, Slow Univers (ZOFRAN 10-27 IV Push, ity of (PF)) 19:15: 18:17 ONCE, 1 [place] injection 4 00 :00 dose, On Medi reed mg [facility] 10/27/21 at 1315, FRANKY morpHINE No 4mg 4 mg, Slow Un rody injection 4 10-27 IV Push, ity of mg 19:15: 18:17 ONCE, 1 [place] 00 :00 dose, On Medical [facility] 10/27/21 at 1315, STAT NaCl 0.9% 2021- No 1000mL at 999 Uni vers (NS) bolus 10-27 mL/hr, ity of infusion 18:30: 18:50 1,000 mL, Mikel as 1,000 mL 00 :00 IV Medical Infusion, Branch ONCE, 1 dose, On [facility] 10/27/21 at 1230, FRANKY ondansetron 2021- No 4mg 4 mg, Univ ers (ZOFRAN-ODT 10-24 Oral, ity of ) 22:30: 10:29 ONCE, 1 [place] disintegrat 00 :00 dose, On Medi reed ing tablet Fri Branch 4 mg 10/24/21 at 1630, Routine lactulose 2020- No 45mL 45 mL, Unive rs (CEPHULAC) 05-26 Oral, ity of solution 45 12:15: 11:15 [place]CE[place] 1 [place] mL 00 :00 dose, [facility] 05/26/21 at Branch 0715, FRANKY HYDROcodone 2020- No 1{tbl} 1 tablet, Univers -acetaminop 05-26 Oral, ity of hen (NORCO 11:30: 10:28 ONCE, 1 [place] as 5) 5-325 mg 00 :00 dose, [facility] Med ical tablet 1 05/26/21 at [facility] h tablet 0630, FRANKY famotidine 2020- No 20mg 20 mg, Univ ers (PEPCID AC) 05-26 Oral, ity of tablet 20 08:45: 08:57 [place]CE, [place] mg 00 :00 dose, [facility] Medical 05/26/21 at Branch 0345, FRANKY alum-mag 2020- No 30mL 30 mL, Univer s hydroxide-s 05-26 Oral, ity of imeth 08:45: 08:57 ONCE, 1 [place] (MAALOX 00 :00 dose, [facility] PLUS / 05/26/21 at Branch MAG-AL 0345, FRANKY PLUS) 200-200-20 mg/5 mL suspension 30 mL dicyclomine No 20mg 20 mg, Uni vers (BENTYL) 05-26 Intramuscu ity of injection 08:45: 08:45 lar, ONCE [place] 20 mg 00 :00 NOW, 1 Medical dose, [facility] 05/26/21 at 0345, Routine ketorolac No 60mg 60 mg, Unive rs (TORADOL) 05-26 Intramuscu ity of injection 08:45: 09:00 lar, ONCE, [place] 60 mg 00 :00 1 dose, Medical [facility] 05/26/21 at 0345, FRANKY
Fa culty member approving Restricted medication : GURVINDER GENAO diclofenac Yes [id number] 75mg Take 1 U nivers 75 mg EC 8-16 tablet by ity of tablet 00:00: mouth 2 (two) Medical times Branch daily with meals. famotidine Yes [id number] 20mg Take 1 U nivers (PEPCID) 20 8-16 tablet by ity of mg tablet 00:00: mouth 2 (two) Medical times Branch daily. hyoscyamine Yes [id number] .125mg Place 1 Univers sulfate 8-16 tablet ity of (LEVSIN/SL) 00:00: under the [place] 0.125 mg 00 tongue Medical sublingual every 6 Branch tablet (six) hours as needed (Abdominal pain or cramping). diclofenac 2020-0 Yes [id number] 75mg Take 1 U nivers 75 mg EC 8-16 tablet by ity of tablet 00:00: mouth (two) Medical times Branch daily with meals. famotidine 2020-0 Yes [id number] 20mg Take 1 U nivers (PEPCID) 20 8-16 tablet by ity of mg tablet 00:00: mouth (two) Medical times Branch daily. hyoscyamine 2020-[id number] 1 Univers sulfate 8-16 tablet ity of (LEVSIN/SL) 00:00: under the [place] 0.125 mg 00 tongue Medical sublingual every 6 Branch tablet (six) hours as needed (Abdominal pain or cramping). diclofenac 2020-0 Yes [id number] 75mg Take 1 U nivers 75 mg EC 8-16 tablet by ity of tablet 00:00: mouth () Medical times Branch daily with meals. famotidine 2020-0 Yes [id number] 20mg Take 1 U nivers (PEPCID) 20 8-16 tablet by ity of mg tablet 00:00: mouth () Medical times Branch daily. hyoscyamine 1-[id number] 1 Univers sulfate 8-16 tablet ity of (LEVSIN/SL) 00:00: under the [place] 0.125 mg 00 tongue Medical sublingual every 6 Branch tablet (six) hours as needed (Abdominal pain or cramping). diclofenac 2020-0 Yes [id number] 75mg Take 1 U nivers 75 mg EC 8-16 tablet by ity of tablet 00:00: mouth (two) Medical times Branch daily with meals. famotidine 1-0 Yes [id number] 20mg Take 1 U nivers (PEPCID) 20 8-16 tablet by ity of mg tablet 00:00: mouth (two) Medical times Branch daily. hyoscyamine 1-[id number] 1 Univers sulfate 8-16 tablet ity of (LEVSIN/SL) 00:00: under the [place] 0.125 mg 00 tongue Medical sublingual every 6 Branch tablet (six) hours as needed (Abdominal pain or cramping). Vital Signs Vital Name Observation Time Observation Value Comments Source Diastolic blood 2021-10-27 16:11:00 113 mm[Hg] Unive rsity of pressure [place] [facility] Heart rate 2021-10-27 16:11:00 78 /min Universi ty of [facility] Body temperature 2021-10-27 16:11:00 36.83 Maribel Univ ersity of [facility] Respiratory rate 2021-10-27 16:11:00 21 /min Univ ersity of [place] [facility] Body weight 2021-10-27 16:11:00 70.308 kg Universi ty of [facility] BMI 2021-10-27 16:11:00 25.79 kg/m2 Universi ty of [facility] Oxygen saturation in 2021-10-27 16:11:00 99 /min University of Arterial blood by [facility] Pulse oximetry Branch Systolic blood 2021-10-27 16:11:00 185 mm[Hg] Univer sity of pressure [place] [facility] BMI 2021-10-24 20:45:00 25.79 kg/m2 Universi ty of [facility] Oxygen saturation in 2021-10-24 20:45:00 99 /min University of Arterial blood by [facility] Pulse oximetry Branch Systolic blood 2021-10-24 20:45:00 130 mm[Hg] Univer sity of pressure [place] [facility] Diastolic blood 2021-10-24 20:45:00 101 mm[Hg] Unive rsity of pressure [facility] Heart rate 2021-10-24 20:45:00 100 /min Universi ty of [facility] Body temperature 2021-10-24 20:45:00 36.78 Maribel Univ ersity of [facility] Respiratory rate 2021-10-24 20:45:00 18 /min Univ ersity of [place] [facility] Body weight 2021-10-24 20:45:00 70.308 kg Universi ty of [facility] Systolic blood 2021-05-26 10:00:00 112 mm[Hg] Univer sity of pressure [facility] Diastolic blood 2021-05-26 10:00:00 79 mm[Hg] Unive rsity of pressure [facility] Heart rate 2021-05-26 10:00:00 85 /min [facility] Body temperature 2021-05-26 10:00:00 36.89 Maribel [facility] Respiratory rate 2021-05-26 10:00:00 16 /min [facility] Oxygen saturation in 2021-05-26 10:00:00 97 /min [facility] Arterial blood by [facility] Pulse oximetry [place] Body height 2021-05-26 07:32:00 165.1 cm [facility] Body weight 2021-05-26 07:32:00 70.308 kg [facility] BMI 2021-05-26 07:32:00 25.79 kg/m2 [facility] Procedures Procedure Date / Time Performing Clinician Source Performed POCT TEST 2021-10-27 18:03:00 Lily Childers [facility] LIPASE 2021-10-27 17:57:00 Lily Childers [facility] COMP. METABOLIC PANEL 2021-10-27 17:57:00 Lily Childers [facility] ([id number]) [facility] CBC WITH DIFF 2021-10-27 17:57:00 Alon [facility] URINALYSIS 2021-10-27 17:57:00 [facility] URINE DRUG (IMMUNOASSAY) 2021-10-27 17:57:00 Lily Childers [facility] DRUG [facility] nch SCREEN W/O REFLEX CONSENT/REFUSAL FOR 2021-10-27 16:07:03 Doctor Unassigned, No [facility] POCT TEST 2021-10-24 21:02:00 Reji Lizama [facility] URINALYSIS 2021-10-24 21:00:00 Reji Lizama [facility] NOTICE OF PRIVACY 2021-10-24 20:41:13 Doctor Unassigned, No [facility] PRACTICES [facility] CONSENT/REFUSAL FOR 2021-10-24 20:41:00 Doctor Unassigned, No [facility] CT ABDOMEN PELVIS WO 2021-05-26 10:54:38 [facility] CONTRAST [facility] XR ABDOMEN 2 VW 2021-05-26 09:08:18 Gurvinder Genao [facility] LIPASE 2021-05-26 09:04:00 Gurvinder Genao [facility] COMP. METABOLIC PANEL 2021-05-26 09:04:00 Gurvinder Genao [facility] ([id number]) [facility] CBC WITH DIFF 2021-05-26 09:04:00 Gurvinder Genao [facility] URINALYSIS 2021-05-26 09:04:00 Gurvinder Genao [facility] POCT TEST 2021-05-26 08:56:00 Gurvinder Genao [facility] ASSIGNMENT OF BENEFITS 2021-05-26 07:25:23 Doctor Unassigned, No [facility] CONSENT/REFUSAL FOR 2021-05-26 07:19:56 Doctor Unassigned, No [facility] DIAGNOSIS AND TREATMENT [facility] Encounters Start End Encounter Admission Attending Care Care Encounter Source Date/Time Date/Time Type Type Clinicians Facility Department ID 2021-10-27 2021-10-27 [facility] [id number] Univers 10:14:00 13:20:00 LILY tao [facility] 2021-10-27 2021-10-27 [facility] [id number] Univers 10:14:00 13:20:00 Lily NIELSEN [id number] i ty [facility] 4.2.7.2.686 [facility] [id number] [address] 2021-10-24 2021-10-24 Emergency X RIDKYLE, [facility] ERT [id number] Univers 14:47:00 16:01:00 REJI burger [facility] 2021-10-24 2021-10-24 Emergency [place], [facility] [id number] Univers 14:47:00 16:01:00 Reji NIELSEN [id number] ity [facility] 4.2.7.2.686 [facility] [id number] [address] 2021-10-24 2021-10-24 Orders Doctor DEE [id number] Univers 00:00:00 00:00:00 Only Unassigned, ZEHRA 350.1.13.10 ity of [facility] 4.2.7.2.686 Mikel as [id number] [facility] 009 Branch 2021-05-26 2021-05-26 Emergency Birgit, [facility] [id number] Univers 02:23:00 06:55:00 [facility] [id number] it y of [facility] 4[place]2.7.2.686 [place] [facility] [id number] [address] ([facility]) 2021-05-26 2021-05-26 Emergency X BIRGIT, [facility] ERT [id number] Univers 02:23:00 02:23:00 GURVINDER ity [facility] 2021-05-22 2021-05-22 Emergency EM Dark, Maria Esther [id number] [facility] 06:43:00 09:00:00 [id number] [facility] Results Test Description Test Time [...] See_Comment [Au tomated message] The system which [employer] nerated this result transmit wong reference range: [...] 32.9 g/dL 31.6-35.1 RDW-SD (test code = 65846-6) 39.7 fL 39.0-49.9 RDW-CV (test code = 788-0) 11.9 % 12.0-15.5 L PLT (test code = 777-3) See_Comment [Au tomated message] The system which ge nerated this result transmit wong reference range: 166 - 35 8 10*3/?L. The reference range was not used to interpret th is result as normal/abnormal . MPV (test code = 89100-1) 8.7 fL 9.5-12.9 L NRBC/100 WBC (test code = See_Comment [ Automated message] The 2372327191) system which ge nerated this result transmit wong reference range: 0.0 - 10 .0 /100 WBCs. The reference r hardy was not used to interpr et this result as normal/abnor mal. NRBC x10^3 (test code = <0.01 See_Comment [Au tomated message] The 2862047378) system which ge nerated this result transmit wong reference range: 10*3/?L. The reference range was not u sed to interpret this result as normal/abnormal . GRAN MAT (NEUT) % (test code 55.0 % = 770-8) IMM GRAN % (test code = 3.20 % 0093355281) LYMPH % (test code = 736-9) 32.2 % MONO % (test code = 5905-5) 7.9 % EOS % (test code = 713-8) 1.0 % BASO % (test code = 706-2) 0.7 % GRAN MAT x10^3(ANC) (test 4.61 10*3/uL 1.88-7.09 code = 7151574352) IMM GRAN x10^3 (test code = 0.27 10*3/uL 0.00-0.06 H 0810551631) LYMPH x10^3 (test code = 2.70 10*3/uL 1.32-3.29 731-0) MONO x10^3 (test code = 0.66 10*3/uL 0.33-0.92 742-7) EOS x10^3 (test code = 0.08 10*3/uL 0.03-0.39 711-2) BASO x10^3 (test code = 0.06 10*3/uL 0.01-0.07 704-7) Lab Interpretation (test Abnormal code = 61968-8) [facility]. METABOLIC PANEL ([id number])2021-10-27 18:22:58 Test Item Value Reference Range Interpretation Comments NA (test code = 137 mmol/L 135-145 7394743473) K (test code = 4.3 mmol/L 3.5-5.0 5116240702) CL (test code = 103 mmol/L 98-108 2283681996) CO2 TOTAL (test code = 30 mmol/L 23-31 9887591581) AGAP (test code = 2-16 2901146167) BUN (test code = 13 mg/dL 7-23 6039081495) GLUCOSE (test code = 90 mg/dL 70-110 5712673459) CREATININE (test code = 0.52 mg/dL 0.50-1.04 7940779014) TOTAL BILI (test code = 0.2 mg/dL 0.1-1.6 3055636389) CALCIUM (test code = 8.4 mg/dL 8.6-10.6 L 9714896535) T PROTEIN (test code = 6.9 g/dL 6.3-8.2 3335378168) ALBUMIN (test code = 3.8 g/dL 3.5-5.0 1303049708) ALK PHOS (test code = 67 U/L 34-122 3306720344) ALTv (test code = 25 U/L 5-35 1742-6) AST(SGOT) (test code = 33 U/L 13-40 8156056222) eGFR (test code = mL/min/1.73m2 0622804629) JOE (test code = JOE) Association of [...] tests). Lab Interpretation Abnormal (test code = 08859-5) [facility]22[facility]17 Test Item Value Reference Range Interpretation Comments LIPASE (test code = 0612104788) 856 U/L 0-220 H Lab Interpretation (test code = Abnormal 85476-7) [facility] [id number] 18:03:00 Test Item Value Reference Range Interpretation Comments POCT PREG (test code = 1605) NEGATIVE On board controls acceptable with present C Line (test code = 3574) POCT PREG LOT # (test code = 3575) [id number] POCT PREG TEST DATE (test 12/08/2022 code = 3576) Lab Interpretation (test code = Normal 63738-0) [facility] [id number] 21:02:00 Test Item Value Reference Range Interpretation Comments POCT PREG (test code = 1605) negative On board controls acceptable with present C Line (test code = 3574) POCT PREG LOT # (test code = 3575) [id number] POCT PREG TEST DATE (test 12-08-2022 code = 3576) Lab Interpretation (test code = Normal 27100-9) [facility] 09:51:07 Test Item Value Reference Range Interpretation Comments APPEARANCE (test code = Cloudy Clear A 0709062797) COLOR (test code = Yellow Yellow 5429850692) PH (test code = 4.8-8.0 9170517403) SP GRAVITY (test code = 1.003-1.030 4156572234) GLU U QUAL (test code = Normal Normal 6805167176) BLOOD (test code = 1+ Negative A 4654722202) KETONES (test code = Negative Negative 7583988787) PROTEIN (test code = Negative Negative 2887-8) UROBILIN (test code = Normal Normal 7386922348) BILIRUBIN (test code = Negative Negative 6147744605) NITRITE (test code = Negative Negative 7884599915) LEUK HAYLIE (test code = Negative Negative 8026681005) RBC/HPF (test code = See_Comment H [Autom ated message] 3275638669) The system [facility] [facility] generated this result transmitted ref erence range: 0 - 3 HP F. The reference range was not used to int erpret this result as normal/abnormal . WBC/HPF (test code = See_Comment [Autom ated message] 7119760121) The system [facility] generated this result transmitted ref erence range: 0 - 5 HP F. The reference range was not used to int erpret this result as normal/abnormal . BACTERIA (test code = Moderate Negative A 0744101202) MUCOUS (test code = Moderate Negative LPF A 2308479814) AMORPHOUS (test code = Rare Rare HPF 1469109196) SQ EPITH (test code = See_Comment H [Auto mated message] 6506869885) The system [facility] generated this result transmitted ref erence range: <=2 HPF. The reference range was not used to int erpret this result as normal/abnormal . Lab Interpretation (test Abnormal code = 83208-6) [facility] ([id number])2021-05-26 09:31:22 Test Item Value Reference Range Interpretation Comments NA (test code = 138 mmol/L 135-145 8942221813) K (test code = 3.8 mmol/L 3.5-5.0 8753957692) CL (test code = 103 mmol/L 98-108 5604999906) CO2 TOTAL (test code 28 mmol/L 23-31 = 0219886942) AGAP (test code = 2-16 6971960845) BUN (test code = 18 mg/dL 7-23 2537583752) GLUCOSE (test code = 86 mg/dL 70-110 2656301288) CREATININE (test code 0.78 mg/dL 0.50-1.04 = 5785862507) TOTAL BILI (test code 0.2 mg/dL 0.1-1.1 = 8448430026) CALCIUM (test code = 9.1 mg/dL 8.6-10.6 7387584972) T PROTEIN (test code 6.9 g/dL 6.3-8.2 = 9261421320) ALBUMIN (test code = 4.1 g/dL 3.5-5.0 2564503717) ALK PHOS (test code = 42 U/L 34-122 4154966814) ALTv (test code = 10 U/L 5-35 2-6) AST(SGOT) (test code 17 U/L 13-40 = 6976163941) eGFR (test code = mL/min/1.73m2 2543771280) JOE (test code = JOE) Association of [...] or urine or abnormalities in imaging tests). [facility] 09:31:22 Test Item Value Reference Range Interpretation Comments LIPASE (test code = 5777412544) 148 U/L 0-220 Lab Interpretation (test code = Normal 59725-4) [facility] [id number] 09:16:20 Test Item Value Reference Range Interpretation Comments WBC (test code = See_Comment [Automated 7690-2) message] The sy stem which generated this result transmitted reference range : 4.30 - 11.10 10*3/?L. The reference range was not used to interpret this result as normal/abnormal . RBC (test code = See_Comment [Automated 099-8) message] The sy stem which generated this [...] RDW-SD (test code = 39.6 fL 39.0-49.9 54978-5) RDW-CV (test code = 11.9 % 12.0-15.5 L 788-0) PLT (test code = See_Comment [Automated 367-3) message] The sy stem which generated this result transmitted reference range : 166 - 358 10*3/ ?L. The reference r hardy was not used to interpret this result as normal/abnormal . MPV (test code = 9.1 fL 9.5-12.9 L 82307-8) NRBC/100 WBC (test See_Comment [Automat ed code = 4786227268) message] The system which generated this result transmitted reference range : 0.0 - 10.0 /100 WBCs. The refer ence range was not u sed to interpret th is result as normal/abnormal . NRBC x10^3 (test code <0.01 See_Comment [Auto mated = 9521929731) message] The s ystem which generated this result transmitted reference range : 10*3/?L. The reference range was not used to interpret this result as normal/abnormal . GRAN MAT (NEUT) % 57.1 % (test code = 770-8) IMM GRAN % (test code 0.40 % = 0062135489) LYMPH % (test code = 32.6 % 736-9) MONO % (test code = 9.3 % 5905-5) EOS % (test code = 0.4 % 713-8) BASO % (test code = 0.2 % 706-2) GRAN MAT x10^3(ANC) 5.50 10*3/uL 1.88-7.09 (test code = 6903541716) IMM GRAN x10^3 (test 0.04 10*3/uL 0.00-0.06 code = 1568007190) LYMPH x10^3 (test code 3.14 10*3/uL 1.32-3.29 = 731-0) MONO x10^3 (test code 0.90 10*3/uL 0.33-0.92 = 742-7) EOS x10^3 (test code = 0.04 10*3/uL 0.03-0.39 711-2) BASO x10^3 (test code <0.03 0.01-0.07 = 704-7) Lab Interpretation Abnormal (test code = 22451-7) [facility] [id number] 08:56:00 Test Item Value Reference Range Interpretation Comments POCT PREG (test code = 1605) negative On board controls acceptable with present C Line (test code = 3574) POCT PREG LOT # (test code = 3575) [id number] POCT PREG TEST DATE (test 10/10/2022 code = 3576) Lab Interpretation (test code = Normal 14098-9) [facility] ([facility] ONLY)2021-05-22 12:33:00 Test Item Value Reference Range Interpretation Comments URINE HCG TRIAGE (ER ONLY) (test NEGATIVE Negative code = HCGTRIAGE) Urine Test Result: NEGATIVEAre internal controls (presence of a control line & clear background) OK? YesLot # of HCG Test Kit: [id number] Date of Kit: 11/10/22Test Performed by:YESSY Kowalski Perfomed on: 05/22/21BASIC METABOLIC [id number] 08:38:00 Test Item Value Reference Range Interpretation [...] code = POCGLU) 96 MG/DL CBC W/AUTO [id number] 08:38:00 Test Item Value Reference Range Interpretation [...] = MX#) 0.9 k/mm3 0.1-0.8 H TROPONIN-I [id number] 08:23:00 Test Item Value Reference Range Interpretation Comments TROPONIN-I RAPID 0.00 ng/mL 0.00-0.08 N Performed b y certified (test code = benzol operator at [facility]) Med Ctr Negative: <= 0.0 8 Positive: [...] changes in trop onin levels characteristic of [place]. - XR ABDOMEN [id number] 00:00:00 [facility] ARACELI HOLDER : 1985 Sex: F FAX: Y Dark,Maria Esther MD [phone] [place]: St: REG Name: ARACELI HOLDER [place] [facility]ED : 1985 Age/S: 35/F Unit #: [id number] Loc: [place], [place] Phys: Maria Esther Munoz MD Acct: [id number] Dis Date: Status: REG ER PHONE #: Exam Date: 05/22/2021829 FAX #: Reason: acute abd chest pain EXAMS: CPT CODE: [id number] XR ABDOMEN 2V 58342 PROCEDURE INFORMATION: Exam: XR AbdomenExam date and [...] By: Nando Orig Print D/T: S: 05/22/2021 (6505) PAGE 1 Signed Report- XR RIBS UNI W/CXR 3+V [id number] 00:00:00 [facility]: ARACELI HOLDER : 1985 Sex: F FAX: Helga Delcid MD [phone] [place]: St: REG Name: ARACELI HOLDER [place] [facility] : 1985 Age/S: 35/F Unit #: [id number] [place] Phys: Helga Delcid MD Acct: [id number] Dis Date: Status: REG ER PHONE #: Exam Date: 05/22/2021 0744 FAX #: Reason: rib pain EXAMS: CPT CODE: [id number] XR RIBS UNI W/CXR 3+V [place] [id number] PROCEDURE INFORMATION: Exam: XR Right Ribs with [...] Trnscrd Date/Time/By: 05/22/2021 (075) : By: [email or web address] [facility] Print D/T: S: 05/22/2021 (075) PAGE 1 Signed Report"
[2022-03-28 14:40] LABS: Absolute Lymphocytes (CBC) 2.5 K/uL (0.7-4.9); Hematocrit 36.7 % (36.0-45.0); Lymphocytes % 24.5 % (15.3-44.8); MPV 6.9 fL (7.6-11.3); RBC Red Blood Cell Count 4.24 M/uL (3.86-4.86)
[2022-03-28 14:46] LABS: Protime INR 0.99
[2022-03-28 15:15] LABS: ALT/SGPT 19 U/L (12-78); AST/SGOT 20 U/L (15-37); Albumin 3.8 g/dL (3.4-5.0); Alkaline Phosphatase 63 U/L (45-117); BUN Blood Urea Nitrogen 6 mg/dL (7-18); Bicarbonate 23 mmol/L (21-32); Bilirubin Direct 0.2 mg/dL (0-0.2); Bilirubin Total 0.5 mg/dL (0.2-1.0); Glomerular Filtration Rate 117 ml/min (=/>90); Glucose Level 101 mg/dL (74-106); Protein, Total 7.3 g/dL (6.4-8.2); Sodium Level 137 mmol/L (136-145)
[2022-03-28 15:27] LABS: Potassium 3.1 mmol/L (3.5-5.1)
[2022-03-28] MEDS ORDERED: OLANZapine 10 MG TABLET ONE (15:29)
[2022-03-28] MEDS ORDERED: OLANZapine 2.5 MG TAB ONE (16:10)
[2022-03-28 17:16] LABS: Urine Blood Trace-intact (Negative); Urine Glucose Negative (Negative); Urine Protein 1+ (Negative); Urine pH 8.5 (5.0-7.0)
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
--- NOTE | 2022-03-28 17:34 | EDPHYS ---
Physician Documentation [facility] Name: Yamilex Sweeney Age: 36 yrs Sex: Female : 1985 Arrival Date: 03/28/2022 Time: 14:13 Bed 17 Private MD: ED Physician Parrish Adair HPI: 03/28 16:16 This 36 yrs old Female presents to ER via EMS with complaints of Anxiety, ma2 Altered Mental Status. 16:16 Onset: The symptoms/episode began/occurred gradually, 2 day(s) ago. Associated signs ma2 and symptoms: Pertinent negatives: agitation, chest pain, combativeness, diarrhea, dizziness. 36-year-old female history of anxiety depression psychosis, who presents with delusion for 1 day, patient denies SI HI or visual hallucinations. Patient states she takes Zyprexa and Zoloft which she has been not taken over the last few days because she has been out of them.. 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 - Social history:: Smoking status: Patient denies any tobacco usage or history of. - Family history:: not pertinent. ROS: 16:16 Constitutional: Negative for fever, chills, and weight loss. ma2 16:16 All other systems are negative. Exam: 16:16 Constitutional: This is a well developed, well nourished patient who is awake, alert, ma2 and in no acute distress. ENT: Nares patent. No nasal discharge, no septal abnormalities noted. Tympanic membranes are normal and external auditory canals are clear. Oropharynx with no redness, swelling, or masses, exudates, or evidence of obstruction, uvula midline. Mucous membranes moist. Neck: Trachea midline, no thyromegaly or masses palpated, and no cervical lymphadenopathy. Supple, full range of motion without nuchal rigidity, or vertebral point tenderness. No Meningismus. Chest/axilla: Normal chest wall appearance and motion. Nontender with no deformity. No lesions are appreciated. Cardiovascular: Regular rate and rhythm with a normal S1 and S2. No gallops, murmurs, or rubs. Normal PMI, no JVD. No pulse deficits. Respiratory: Lungs have equal breath sounds bilaterally, clear to auscultation and percussion. No rales, rhonchi or wheezes noted. No increased work of breathing, no retractions or nasal flaring. Abdomen/GI: Soft, non-tender, with normal bowel sounds. No distension or tympany. No guarding or rebound. No evidence of tenderness throughout. Back: No spinal tenderness. No costovertebral tenderness. Full range of motion. Skin: Warm, dry with normal turgor. Normal color with no rashes, no lesions, and no evidence of cellulitis. MS/ Extremity: Pulses equal, no cyanosis. Neurovascular intact. Full, normal range of motion. Neuro: Awake and alert, GCS 15, oriented to person, place, time, and situation. Cranial nerves II-XII grossly intact. Motor strength 5/5 in all extremities. Sensory grossly intact. Cerebellar exam normal. Normal gait. Psych: Awake, alert, with orientation to person, place and time. Behavior, mood, and affect are within normal limits. 16:16 Psych: Behavior/mood is pleasant, Affect is calm, Oriented to person, place, time, Patient has no thoughts/intents to harm self or others. Delusions/hallucinations Vital Signs: 14:17 BP 144 / 109; Pulse 114; Resp 20; Temp 98.1; Pulse Ox 99% ; Weight 70.31 kg (R); Height mb7 5 ft. 4 in. (162.56 cm) (R); 14:19 Weight 70.31 kg; Height 5 ft. 4 in. (162.56 cm); ll1 15:18 BP 137 / 90; Pulse 93; Resp 17; Pulse Ox 98% on R/A; ll1 16:35 BP 128 / 90; Pulse 99; Resp 16; Pulse Ox 98% on R/A; jb4 14:19 Body Mass Index 26.61 (70.31 kg, 162.56 cm) ll1 MDM: 16:16 Differential Diagnosis: electrolyte abnormality, overdose. [facility] 17:32 Data reviewed: vital signs, nurses notes. Counseling: I had a detailed discussion with ma2 the patient and/or guardian regarding: the historical points, exam findings, and any diagnostic results supporting the discharge/admit diagnosis, the presence of at least one elevated blood pressure reading (>120/80) during this emergency department visit, the need for outpatient follow up. Response to treatment: the patient's symptoms have markedly improved after treatment. 17:33 Patient medically screened. [facility] 03/28 14:16 Order name: Acetaminophen; Complete Time: 15:38 [facility] 03/28 14:16 Order name: Basic Metabolic Panel; Complete Time: 15:38 [facility] 03/28 14:16 Order name: CBC with Diff; Complete Time: 15:09 [facility] 03/28 14:16 Order name: ETOH Level; Complete Time: 15:38 [facility] 03/28 14:16 Order name: Hepatic Function; Complete Time: 15:38 [facility] 03/28 14:16 Order name: PT-INR; Complete Time: 15: [facility] 03/28 14:16 Order name: Ptt, Activated; Complete Time: 15: [facility] 03/28 14:16 Order name: Salicylate; Complete Time: 15:38 [facility] 03/28 14:16 Order name: Urine Drug Screen [facility] 03/28 17:17 Order name: Urine Dipstick-Ancillary; Complete Time: 17:31 [facility] 03/28 17:28 Order name: Urine --Ancillary (enter results) 03/28 14:16 Order name: EKG; Complete Time: 14:17 [facility] 03/28 14:16 Order name: EKG - Nurse/Tech; Complete Time: 15:02 [facility] 03/28 14:16 Order name: IV Saline Lock; Complete Time: 14:27 [facility] 03/28 14:16 Order name: Labs collected and sent; Complete Time: 14:27 [facility] 03/28 14:16 Order name: Suicide Screening ([place]); Complete Time: 15:02 [facility] 03/28 14:16 Order name: Urine Dipstick-Ancillary (obtain specimen); Complete Time: 17:27 [facility] 03/28 14:16 Order name: Urine Test (obtain specimen); Complete Time: 17:27 ma Administered Medications: 15:46 Not Given (Other Intervention Used; Pt reports home does is 2.5mgg): ZyPREXA jb4 (OLANZapine) 20 mg PO once 16:20 Drug: ZyPREXA (OLANZapine) 2.5 mg Route: PO; jb4 18:00 Follow up: Response: No adverse reaction jb4 17:40 Drug: Rocephin (cefTRIAXone) 1 grams Route: IV; Rate: calculated rate; Site: left hand; [facility] 18:00 Follow up: Response: No adverse reaction; IV Status: Completed infusion; IV Intake: [id number] Disposition Summary: 03/28/22 17:33 Discharge Ordered Location: Home ma2 Condition: Stable ma2 Diagnosis - Delusional disorders ma2 - UTI/ Urinary tract infection, site not specified ma2 Followup: ma2 - With: Private Physician - When: Tomorrow - Reason: If symptoms return, Continuance of care Discharge Instructions: - Discharge Summary Sheet ma2 - Urinary Tract Infection, Adult, [id number] ma2 - Psychosis ma2 Forms: - Medication Reconciliation Form ma2 - Thank You Letter ma2 - Antibiotic Education ma2 - Prescription Opioid Use ma2 Prescriptions: - ZYPREXA 2.5 MG - take 1 tablet by ORAL route once daily; 30 tablet; Refills: 0, Product ma2 Selection Permitted - Prozac 20 mg Oral Capsule - take 2 capsule by ORAL route once daily; 30 capsule; Refills: 0, Product ma2 Selection Permitted - Bactrim DS 800-160 mg Oral Tablet - take 1 tablet by ORAL route every 12 hours for 5 days; 10 tablet; Refills: 0, ma2 Product Selection Permitted - Fluconazole 150 mg Oral Tablet - take 1 tablet by ORAL route once daily; 30 tablet; Refills: 0, Product ma2 Selection Permitted Signatures: Dispatcher [employer] Piero Ward, RN RN jb4 Parrish Adair MD MD ma2 Nevin Florian RN RN ll1
[2022-03-28 17:35] LABS: Barbiturates NEGATIVE (NEGATIVE); Benzodiazepines NEGATIVE (NEGATIVE); Cocaine NEGATIVE (NEGATIVE); METHAMPHETAM POSITIVE (NEGATIVE); Methadone NEGATIVE (NEGATIVE); Opiates NEGATIVE (NEGATIVE); Phencyclidine NEGATIVE (NEGATIVE); THC Cannibis NEGATIVE (NEGATIVE)
[2022-03-28] MEDS ORDERED: CEFTRIAXONE 1000 MG/VIAL ONE (17:43)
[2022-03-28 18:19] VITALS: O2SAT 98
[2022-03-28 18:20] VITALS: TEMP 98.1
[2022-03-28 18:22] VITALS: BP 128/90
--- NOTE | 2022-03-30 11:54 | EKG ---
Test Date: 2022-03-28 Test Time: 14:56:41 Dobby Loom Chain Pegger: JUVE MEASUREMENT RESULTS: Intervals: Rate: 100 [place]: 120 QRSD: 90 QT: 376 QTc: 485 [place]: P: 66 [place]: 120 QRS: 61 T: 62 INTERPRETIVE STATEMENTS: Normal sinus rhythm Nonspecific ST abnormality Prolonged QT Abnormal ECG No previous ECG available for comparison Electronically Signed On 03-30-22 11:50:27 CDT by Jake Javier
== END 2022-03-28 18:04 | disposition home or self-care (01) ==
LOC: ER 14:09
DX: F22 Delusional disorders (principal); N39.0 Urinary tract infection, site not specified; Z88.6 Allergy status to analgesic agent; F41.8 Other specified anxiety disorders
CPT/HCPCS: 36415; 80048; 80076; 80307; 80320; 80329; 81003; 81025; 85025; 85610; 85730; 93005; 96365; 99283

== ENCOUNTER 2022-04-01 09:28 | Emergency (ER) | payer SELFPAY ==
--- OUTSIDE RECORDS SUMMARY | 2022-04-01 09:32 | XMS REPORT | Continuity of Care Document ---
:[address] [facility] t Address [address] [place] [address] Care Team Providers Name Role Phone Pcp, Does Not Have A Primary Care Physician ALON Attending Clinician Unavailable Alon ZURITA Attending Clinician RIDDLE Attending Clinician Unavailable Caldwell ACNP Attending Clinician Doctor Unassigned, Name Attending [...] pain, 1-14 ity of acute acute 00:00: [address] Allergies, Adverse Reactions, Alerts Allergy Allergy Status Severity Reaction(s) Onset Inactive Treating Comm ents Source Name Type Date Date Clinician No Known DA Active U [facility] Allergie 9-29 Clear s 00:00: [address] NO KNOWN Drug Active Univers ALLERGIE Class [facility] [place] [facility] Social History Social Habit Start Date Stop Date Quantity Comments Source Exposure to Not sure [facility] SARS-CoV-2 (event) Medica l Branch Sex Assigned At [birth year] [facility] 00:00:00 00:00:00 [facility] Smoking Status Start Date Stop Date Source Unknown if ever smoked [facility] Medications Ordered Filled Start Stop Current Ordering Indication Dosage Frequency Signature Comments Components Source Medication Medication Date Date Medication? Clinician (SIG) Name Name ondansetron 2021- No 4mg 4 mg, Slow Univers (ZOFRAN 10-27 IV Push, ity of (PF)) 19:15: 18:17 ONCE, 1 [place] injection 4 00 :00 dose, On Medi reed mg [facility] 10/27/21 at 1315, FRANKY morpHINE No 4mg 4 mg, Slow Un rody injection 4 10-27 IV Push, ity of mg 19:15: 18:17 ONCE, 1 [place] 00 :00 dose, On Medical [facility] 10/27/21 at 1315, STAT NaCl 0.9% 2021- No 1000mL at 999 Uni vers (NS) bolus 10-27 mL/hr, ity of infusion 18:30: 18:50 1,000 mL, Mikel as 1,000 mL 00 :00 IV Medical Infusion, [place] ONCE, 1 dose, On [facility] 10/27/21 at 1230, [place]ANK[place] ondansetron 2021- No [...] 1 [place] mL [place] :[place] dose, [facility] 05/26/21 at Branch 0715, FRANKY HYDROcodone 2020- No 1{tbl} 1 tablet, Univers -acetaminop 05-26 Oral, ity of hen (NORCO 11:30: 10:28 ONCE, 1 Mik[place] as 5) 5-325 mg 00 :00 dose, Mon Med ical tablet 1 05/26/21 at [facility] h tablet 0630, FRANKY famotidine No 20mg 20 mg, Univ ers (PEPCID AC) 05-26 Oral, ity of tablet 20 08:45: 08:57 [place]CE[place] mg 00 :00 dose, [facility] 05/26/21 at Branch 0345, FRANKY alum-mag 2020- No 30mL 30 mL, Univer s hydroxide-s 05-26 Oral, ity of imeth 08:45: 08:57 ONCE, 1 [place] (MAALOX 00 :00 dose, [facility] PLUS / 05/26/21 at Branch MAG-AL 0345, FRANKY PLUS) 200-200-20 mg/5 mL suspension 30 mL dicyclomine No 20mg 20 mg, Uni vers (BENTYL) 05-26 Intramuscu ity of injection 08:45: 08:45 [place] 20 mg 00 :00 NOW, 1 Medical dose, [facility] 05/26/21 at 0345, Routine ketorolac No 60mg 60 mg, Unive rs (TORADOL) 05-26 Intramuscu ity of injection 08:45: 09:00 lar, ONCE, [place] 60 mg 00 :00 1 dose, Medical [facility] 05/26/21 at 0345, FRANKY
Fa culty member approving Restricted medication : GURVINDER GENAO diclofenac Yes [id number] 75mg Take 1 U nivers 75 mg EC 8-16 tablet by ity of tablet 00:00: mouth 2 (two) Medical times Branch daily with meals. famotidine Yes [id number] 20mg Take 1 U nivers (PEPCID) 20 8-16 tablet by ity of mg tablet 00:00: mouth 2 00 (two) Medical times Branch daily. hyoscyamine Yes [id number] .125mg Place 1 Univers sulfate 8-16 tablet ity of (LEVSIN/SL) 00:00: under the [place] 0.125 mg 00 tongue Medical sublingual every 6 Branch tablet (six) hours as needed (Abdominal pain or cramping). diclofenac 1-0 Yes [id number] 75mg Take 1 U nivers 75 mg EC 8-16 tablet by ity of tablet 00:00: mouth (two) Medical times Branch daily with meals. famotidine 1-0 Yes [id number] 20mg Take 1 U nivers (PEPCID) 20 8-16 tablet by ity of mg tablet 00:00: mouth (two) Medical times Branch daily. hyoscyamine 1-[id number] 1 Univers sulfate 8-16 tablet ity of (LEVSIN/SL) 00:00: under the [place] 0.125 mg 00 tongue Medical sublingual every 6 Branch tablet (six) hours as needed (Abdominal pain or cramping). diclofenac 2020-0 Yes [id number] 75mg Take 1 U nivers 75 mg EC 8-16 tablet by ity of tablet 00:00: mouth ([facility]) Medical times Branch daily with meals. famotidine 2020-0 Yes [id number] 20mg Take 1 U nivers (PEPCID) 20 8-16 tablet by ity of mg tablet 00:00: mouth () Medical times Branch daily. hyoscyamine 1-[id number] 1 Univers sulfate 8-16 tablet ity of (LEVSIN/SL) 00:00: under the [place] 0.125 mg 00 tongue Medical sublingual every 6 Branch tablet (six) hours as needed (Abdominal pain or cramping). diclofenac 1-0 Yes [id number] 75mg Take 1 U nivers 75 mg EC 8-16 tablet by ity of tablet 00:00: mouth (two) Medical times Branch daily with meals. famotidine 2021-0 Yes [id number] 20mg Take 1 U nivers (PEPCID) 20 8-16 tablet by ity of mg tablet 00:00: mouth (two) Medical times Branch daily. hyoscyamine 2021-[id number] 1 Univers sulfate 8-16 tablet [...] 2021-10-27 16:11:00 78 /min Universi ty of [facility] Body temperature 2021-10-27 16:11:00 36.83 Maribel Univ ersity of [facility] Respiratory rate 2021-10-27 16:11:00 21 /min Univ ersity of [facility] Body weight 2021-10-27 16:11:00 70.308 kg Universi ty of [facility] BMI 2021-10-27 16:11:00 25.79 kg/m2 Universi ty [facility] [place] Oxygen saturation in 2021-10-27 16:11:00 99 /min University of Arterial blood by [facility] Pulse oximetry Branch Systolic blood 2021-10-27 16:11:00 185 mm[Hg] Univer sity of [facility] Branch BMI 2021-10-24 20:45:00 25.79 kg/m2 Universi ty of [facility] Oxygen saturation in 2021-10-24 20:45:00 99 /min University of Arterial blood by [facility] Pulse oximetry Branch Systolic blood 2021-10-24 20:45:00 130 mm[Hg] Univer sity of [facility] Branch Diastolic blood 2021-10-24 20:45:00 101 mm[Hg] Unive rsity of [facility] Branch Heart rate 2021-10-24 20:45:00 100 /min Universi ty of [facility] Body temperature 2021-10-24 20:45:00 36.78 Maribel Univ ersity of [facility] Branch Respiratory rate 2021-10-24 20:45:00 18 /min Univ ersity of [facility] Body weight 2021-10-24 20:45:00 70.308 kg Universi ty of [facility] Systolic blood 2021-05-26 10:00:00 112 mm[Hg] Univer sity of [facility] Branch Diastolic blood 2021-05-26 10:00:00 79 mm[Hg] Unive rsity of pressure [facility] Branch Heart rate 2021-05-26 10:00:00 85 /min General acute hospital Body temperature 2021-05-26 10:00:00 36.89 Maribel [facility] Respiratory rate 2021-05-26 10:00:00 16 /min [facility] Oxygen saturation in 2021-05-26 10:00:00 97 /min [facility] Arterial blood by [facility] Pulse oximetry [place] Body height 2021-05-26 07:32:00 165.1 cm General acute hospital Body weight 2021-05-26 07:32:00 70.308 kg General acute hospital BMI 2021-05-26 07:32:00 25.79 kg/m2 General acute hospital Procedures Procedure Date / Time Performing Clinician Source Performed POCT TEST 2021-10-27 18:03:00 Lily Chi General acute hospital LIPASE 2021-10-27 17:57:00 Lily Chi [facility] COMP. METABOLIC PANEL 2021-10-27 17:57:[address] [facility] ([id number]) [facility] CBC WITH DIFF 2021-10-27 17:57:00 Alon [facility] URINALYSIS 2021-10-27 17:57:00 Alon [facility] URINE DRUG (IMMUNOASSAY) 2021-10-27 17:57:00 Lily Chi [facility] DRUG Medical [facility] nch SCREEN W/O REFLEX CONSENT/REFUSAL FOR 2021-10-27 16:07:03 Doctor Unassigned, [facility] POCT TEST 2021-10-24 21:02:00 Reji Lizama [facility] URINALYSIS 2021-10-24 21:00:00 Reji Lizama General acute hospital NOTICE OF PRIVACY 2021-10-24 20:41:13 Doctor Unassigned, No [facility] PRACTICES [facility] CONSENT/REFUSAL FOR 2021-10-24 20:41:00 Doctor Unassigned, No [facility] CT ABDOMEN PELVIS WO 2021-05-26 10:54:38 Gurvinder Genao [facility] CONTRAST [facility] XR ABDOMEN 2 VW 2021-05-26 09:08:18 Gurvinder Genao [facility] LIPASE 2021-05-26 09:04:00 Gurvinder Genao [facility] COMP. METABOLIC PANEL 2021-05-26 09:04:00 Gurvinder Genao [facility] ([id number]) [facility] CBC WITH DIFF 2021-05-26 09:04:00 Gurvinder Genao [facility] URINALYSIS 2021-05-26 09:04:00 Gurvinder Genao [facility] POCT TEST 2021-05-26 08:56:00 Gruvinder Genao [facility] ASSIGNMENT OF BENEFITS 2021-05-26 07:25:23 Doctor Unassigned, No [facility] CONSENT/REFUSAL FOR 2021-05-26 07:19:56 Doctor Unassigned, No [facility] DIAGNOSIS AND TREATMENT [facility] Encounters Start End Encounter Admission Attending Care Care Encounter Source Date/Time Date/Time Type Type Clinicians Facility Department ID 2021-10-27 2021-10-27 Emergency [facility] [id number] Univers 10:14:00 13:20:00 LILY [facility] 2021-10-27 2021-10-27 Emergency [facility] [id number] Univers 10:14:00 13:20:00 Lily NIELSEN [id number] i ty [facility] 4.2.7.2.686 [facility] [id number] [place] [id number] Branch 2021-10-24 2021-10-24 Emergency X RIDKYLE, [facility] ERT [id number] Univers 14:47:00 16:01:00 REJI burger [facility] [place] 2021-10-24 2021-10-24 Emergency Caldwell, [facility] [id number] Univers 14:47:00 16:01:00 Reji NIELSEN [id number] ity [facility] 4.2.7.2.686 [facility] [id number] [facility] 084 Branch 2021-10-24 2021-10-24 Orders Doctor DEE [id number] Univers 00:00:00 00:00:00 Only Unassigned, ZEHRA 350.1.13.10 ity of [facility] 4.2.7.2.686 Mikel [id number] [facility] 009 Branch 2021-05-26 2021-05-26 Emergency Birgit, [facility] [id number] Univers 02:23:00 06:55:00 [facility] [id number] it y of [facility] 4.2.7.2.686 [facility] [phone] [address] ([facility]) 2021-05-26 2021-05-26 Emergency X BIRGIT, [facility] ERT [id number] Univers 02:23:00 02:23:00 GURVINDER ity [facility] [place] 2021-05-22 2021-05-22 Emergency EM Dark, Maria Esther [id number] [facility] 06:43:00 09:00:00 [id number] [facility] Results Test Description Test Time Test Comments Results Result Comments Source CBC WITH DIFF 2021-10-27 18:38:22 Test Item Value Reference Range Interpretation Comme nts WBC (test code = 6690-2) See_Comment [A utomated message] The system which [employer] nerated this result transmit wong reference range: 4.30 - 1 1.10 10*3/?L. The reference r hardy was not used to interpr et this result as normal/abnor mal. RBC (test code = 789-8) See_Comment [Au tomated message] The system which [employer] nerated this result transmit wong reference range: [...] 32.9 g/dL 31.6-35.1 RDW-SD (test code = 37770-0) 39.7 fL 39.0-49.9 RDW-CV (test code = 788-0) 11.9 % 12.0-15.5 L PLT (test code = 777-3) See_Comment [Au tomated message] The system which ge nerated this result transmit wong reference range: 166 - 35 8 10*3/?L. The reference range was not used to interpret th is result as normal/abnormal . MPV (test code = 76747-2) 8.7 fL 9.5-12.9 L NRBC/100 WBC (test code = See_Comment [ Automated message] The 0430691930) system which ge nerated this result transmit wong reference range: 0.0 - 10 .0 /100 WBCs. The reference r hardy was not used to interpr et this result as normal/abnor mal. NRBC x10^3 (test code = <0.01 See_Comment [Au tomated message] The 4288978693) system which ge nerated this result transmit wong reference range: 10*3/?L. The reference range was not u sed to interpret this result as normal/abnormal . GRAN MAT (NEUT) % (test code 55.0 % = 770-8) IMM GRAN % (test code = 3.20 % 2442260679) LYMPH % (test code = 736-9) 32.2 % MONO % (test code = 5905-5) 7.9 % EOS % (test code = 713-8) 1.0 % BASO % (test code = 706-2) 0.7 % GRAN MAT x10^3(ANC) (test 4.61 10*3/uL 1.88-7.09 code = 5808746891) IMM GRAN x10^3 (test code = 0.27 10*3/uL 0.00-0.06 H 9499762440) LYMPH x10^3 (test code = 2.70 10*3/uL 1.32-3.29 731-0) MONO x10^3 (test code = 0.66 10*3/uL 0.33-0.92 742-7) EOS x10^3 (test code = 0.08 10*3/uL 0.03-0.39 711-2) BASO x10^3 (test code = 0.06 10*3/uL 0.01-0.07 704-7) Lab Interpretation (test Abnormal code = 78653-5) [facility]. METABOLIC PANEL ([id number])2021-10-27 18:22:58 Test Item Value Reference Range Interpretation Comments NA (test code = 137 mmol/L 135-145 6184231353) K (test code = 4.3 mmol/L 3.5-5.0 2748956040) CL (test code = 103 mmol/L 98-108 6977272808) CO2 TOTAL (test code = 30 mmol/L 23-31 3369859337) AGAP (test code = 2-16 2076726802) BUN (test code = 13 mg/dL 7-23 6837677880) GLUCOSE (test code = 90 mg/dL 70-110 0194217580) CREATININE (test code = 0.52 mg/dL 0.50-1.04 3590140807) TOTAL BILI (test code = 0.2 mg/dL 0.1-1.9 4176972818) CALCIUM (test code = 8.4 mg/dL 8.6-10.6 L 3849900625) T PROTEIN (test code = 6.9 g/dL 6.3-8.2 9475360342) ALBUMIN (test code = 3.8 g/dL 3.5-5.0 2129563734) ALK PHOS (test code = 67 U/L 34-122 5468921808) ALTv (test code = 25 U/L 5-35 1742-6) AST(SGOT) (test code = 33 U/L 13-40 1436771624) eGFR (test code = mL/min/1.73m2 1037642989) JOE (test code = JOE) Association of [...] tests). Lab Interpretation Abnormal (test code = 53036-3) [facility]17 Test Item Value Reference Range Interpretation Comments LIPASE (test code = 4425521947) 856 U/L 0-220 H Lab Interpretation (test code = Abnormal 35067-4) [facility] [id number] 18:03:00 Test Item Value Reference Range Interpretation Comments POCT PREG (test code = 1605) NEGATIVE On board controls acceptable with present C Line (test code = 3574) POCT PREG LOT # (test code = 3575) [id number] POCT PREG TEST DATE (test 12/08/2022 code = 3576) Lab Interpretation (test code = Normal 41275-1) [facility] [id number] 21:02:00 Test Item Value Reference Range Interpretation Comments POCT PREG (test code = 1605) negative On board controls acceptable with present C Line (test code = 3574) POCT PREG LOT # (test code = 3575) [id number] POCT PREG TEST DATE (test 12-08-2022 code = 3576) Lab Interpretation (test code = Normal 89592-5) [facility] 09[facility]51:07 Test Item Value Reference Range Interpretation Comments APPEARANCE (test code = Cloudy Clear A 6320759068) COLOR (test code = Yellow Yellow 0697533687) PH (test code = 4.8-8.0 4093227202) SP GRAVITY (test code = 1.003-1.030 3880735112) GLU U QUAL (test code = Normal Normal 6119335662) BLOOD (test code = 1+ Negative A 7500839832) KETONES (test code = Negative Negative 4001505047) PROTEIN (test code = Negative Negative 2887-8) UROBILIN (test code = Normal Normal 7856750735) BILIRUBIN (test code = Negative Negative 1686036016) NITRITE (test code = Negative Negative 7687551814) LEUK HAYLIE (test code = Negative Negative 6603176200) RBC/HPF (test code = See_Comment H [Autom ated message] 9251759414) The system [employer] generated this result transmitted ref erence range: 0 - 3 HP F. The reference range was not used to int erpret this result as normal/abnormal . WBC/HPF (test code = See_Comment [Autom ated message] 2737639785) The system [employer] generated this result transmitted ref erence range: 0 - 5 HP F. The reference range was not used to int erpret this result as normal/abnormal . BACTERIA (test code = Moderate Negative A 4994035913) MUCOUS (test code = Moderate Negative LPF A 4919636347) AMORPHOUS (test code = Rare Rare HPF 0092964766) SQ EPITH (test code = See_Comment H [Auto mated message] 1175692870) The system [employer] generated this result transmitted ref erence range: <=2 HPF. The reference range was not used to int erpret this result as normal/abnormal . Lab Interpretation (test Abnormal code = 22614-7) [facility] ([id number])2021-05-26 09:31:22 Test Item Value Reference Range Interpretation Comments NA (test code = 138 mmol/L 135-145 4063951935) K (test code = 3.8 mmol/L 3.5-5.0 9897410061) CL (test code = 103 mmol/L 98-108 2566143518) CO2 TOTAL (test code 28 mmol/L 23-31 = 1891135355) AGAP (test code = 2-16 7187542270) BUN (test code = 18 mg/dL 7-23 8038246532) GLUCOSE (test code = 86 mg/dL 70-110 6624330729) CREATININE (test code 0.78 mg/dL 0.50-1.04 = 8045451427) TOTAL BILI (test code 0.2 mg/dL 0.1-1.1 = 5096913639) CALCIUM (test code = 9.1 mg/dL 8.6-10.6 1516560648) T PROTEIN (test code 6.9 g/dL 6.3-8.2 = 6096094752) ALBUMIN (test code = 4.1 g/dL 3.5-5.0 0731274251) ALK PHOS (test code = 42 U/L 34-122 2948396214) ALTv (test code = 10 U/L 5-35 1742-6) AST(SGOT) (test code 17 U/L 13-40 = 3611865986) eGFR (test code = mL/min/1.73m2 5938535181) JOE (test code = JOE) Association of [...] or urine or abnormalities in imaging tests). [facility] 09:31:22 Test Item Value Reference Range Interpretation Comments LIPASE (test code = 2674019766) 148 U/L 0-220 Lab Interpretation (test code = Normal 32889-7) [facility] [id number] 09:16:20 Test Item Value Reference Range Interpretation Comments WBC (test code = See_Comment [Automated 2090-2) message] The sy stem which generated this result transmitted reference range : 4.30 - 11.10 10*3/?L. The reference range was not used to interpret this result as normal/abnormal . RBC (test code = See_Comment [Automated 549-8) message] The sy stem which generated this [...] RDW-SD (test code = 39.6 fL 39.0-49.9 15223-7) RDW-CV (test code = 11.9 % 12.0-15.5 L 788-0) PLT (test code = See_Comment [Automated 777-3) message] The sy stem which generated this result transmitted reference range : 166 - 358 10*3/ ?L. The reference r hardy was not used to interpret this result as normal/abnormal . MPV (test code = 9.1 fL 9.5-12.9 L 94963-2) NRBC/100 WBC (test See_Comment [Automat ed code = 8558028575) message] The system which generated this result transmitted reference range : 0.0 - 10.0 /100 WBCs. The refer ence range was not u sed to interpret th is result as normal/abnormal . NRBC x10^3 (test code <0.01 See_Comment [Auto mated = 9768307573) message] The s ystem which generated this result transmitted reference range : 10*3/?L. The reference range was not used to interpret this result as normal/abnormal . GRAN MAT (NEUT) % 57.1 % (test code = 770-8) IMM GRAN % (test code 0.40 % = 0847645234) LYMPH % (test code = 32.6 % 736-9) MONO % (test code = 9.3 % 5905-5) EOS % (test code = 0.4 % 713-8) BASO % (test code = 0.2 % 706-2) GRAN MAT x10^3(ANC) 5.50 10*3/uL 1.88-7.09 (test code = 8191910122) IMM GRAN x10^3 (test 0.04 10*3/uL 0.00-0.06 code = 2168164449) LYMPH x10^3 (test code 3.14 10*3/uL 1.32-3.29 = 731-0) MONO x10^3 (test code 0.90 10*3/uL 0.33-0.92 = 742-7) EOS x10^3 (test code = 0.04 10*3/uL 0.03-0.39 711-2) BASO x10^3 (test code <0.03 0.01-0.07 = 704-7) Lab Interpretation Abnormal (test code = 64420-0) [facility] [id number] 08:56:00 Test Item Value Reference Range Interpretation Comments POCT PREG (test code = 1605) negative On board controls acceptable with present C Line (test code = 3574) POCT PREG LOT # (test code = 3575) [id number] POCT PREG TEST DATE (test 10/10/2022 code = 3576) Lab Interpretation (test code = Normal 68258-0) [facility] ([facility] ONLY)2021-05-22 12:33:00 Test Item Value Reference Range Interpretation Comments URINE HCG TRIAGE (ER ONLY) (test NEGATIVE Negative code = HCGTRIAGE) Urine Test Result: NEGATIVEAre internal controls (presence of a control line & clear background) OK? 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 - XR ABDOMEN [id number] 00:00:00 [facility] ARACELI HOLDER : 1985 Sex: F FAX: Maria Esther Mendez MD [phone] [place]: St: REG Name: ARACELI HOLDER [place] FSED : 1985 Age/S: 35/F Unit #: [id number] Loc: [place], [place] Phys: Maria Esther Munoz MD Acct: [id number] Dis Date: Status: REG ER PHONE #: Exam Date: 05/22/2021 0830 FAX #: Reason: acute abd chest pain EXAMS: CPT CODE: [id number] XR ABDOMEN 2V 15263 PROCEDURE INFORMATION: Exam: XR AbdomenExam date and [...] By: Nando Orig Print D/T: S: 05/22/2021 (8941) PAGE 1 Signed Report- XR RIBS UNI W/CXR 3+V [id number] 00:00:00 [facility] [place] ARACELI HOLDER : 1985 Sex: F FAX: Helga Delcid MD [phone] [place]: St: REG Name: ARACELI HOLDER [place] FS : 1985 Age/S: 35/F Unit #: [id number] [place] Phys: Helga Delcid MD Acct: [id number] Dis Date: Status: REG ER PHONE #: Exam Date: 05/22/2021 0744 FAX #: Reason: rib pain EXAMS: CPT CODE: [id number] XR RIBS UNI W/CXR 3+[place] [address] PROCEDURE INFORMATION: Exam: XR Right Ribs with [...] MD Technologist: RT Kavin(Stormy) Trnscrd Date/Time/By: 05/22/2021 (075) : By: [email or web address] Orig Print D/T: S: 05/22/2021 (075) PAGE 1 Signed Report"
[2022-04-01] MEDS ORDERED: LORazepam 2 MG/ML VIAL ONE (10:45)
[2022-04-01 10:54] LABS: Absolute Lymphocytes (CBC) 2.6 K/uL (0.7-4.9); Hematocrit 39.7 % (36.0-45.0); Lymphocytes % 24.2 % (15.3-44.8); MPV 6.9 fL (7.6-11.3); RBC Red Blood Cell Count 4.45 M/uL (3.86-4.86)
[2022-04-01 11:00] LABS: Protime INR 1.04
[2022-04-01 11:28] LABS: ALT/SGPT 22 U/L (12-78); AST/SGOT 18 U/L (15-37); Albumin 4.1 g/dL (3.4-5.0); Alkaline Phosphatase 62 U/L (45-117); BUN Blood Urea Nitrogen 7 mg/dL (7-18); Bicarbonate 25 mmol/L (21-32); Bilirubin Direct 0.1 mg/dL (0-0.2); Bilirubin Total 0.5 mg/dL (0.2-1.0); Glomerular Filtration Rate 105 ml/min (=/>90); Glucose Level 104 mg/dL (74-106); Protein, Total 8.2 g/dL (6.4-8.2); Sodium Level 137 mmol/L (136-145); Troponin High Sensitivity 3.5 pg/mL (<58.9)
[2022-04-01 11:30] LABS: Potassium 2.8 mmol/L (3.5-5.1)
[2022-04-01 12:21] LABS: Urine Blood 1+ (Negative); Urine Glucose Negative (Negative); Urine Protein Negative (Negative); Urine Specific Gravity >=1.030 (1.005-1.030); Urine pH 6.5 (5.0-7.0)
[2022-04-01 12:59] LABS: Barbiturates NEGATIVE (NEGATIVE); Benzodiazepines NEGATIVE (NEGATIVE); Cocaine NEGATIVE (NEGATIVE); METHAMPHETAM POSITIVE (NEGATIVE); Methadone NEGATIVE (NEGATIVE); Opiates NEGATIVE (NEGATIVE); Phencyclidine NEGATIVE (NEGATIVE); THC Cannibis NEGATIVE (NEGATIVE)
[2022-04-01] MEDS ORDERED: POTASSIUM CL SA 10 MEQ TAB PO ONE (13:19)
[2022-04-01] MEDS ORDERED: KETOROLAC 30 MG/ML INJ ONE (13:19)
[2022-04-01] MEDS ORDERED: NA CHLORIDE 0.9% 500 ML ONE (13:20)
--- NOTE | 2022-04-01 14:31 | RAD REPORT ---
EXAM DESCRIPTION: RAD - Chest Single View - 04/01/2022 2:20 pm CLINICAL HISTORY: CHEST PAIN COMPARISON: No comparisons FINDINGS: Lines: None. Lungs: No evidence of edema or pneumonia. Pleural: No significant pleural effusions or pneumothorax. Cardiac: The heart size is within normal limits. Bones: No acute fractures. Other: IMPRESSION: No acute cardiopulmonary disease.
[2022-04-01] MEDS ORDERED: POTASSIUM 25 MEQ EFFERV TAB ONE (15:03)
--- NOTE | 2022-04-01 15:12 | ER ---
Nurse's Notes [facility] Name: Yamilex Sweeney Age: 36 yrs Sex: Female : 1985 Arrival Date: 04/01/2022 Time: 09:30 Bed 15 Private MD: Diagnosis: Chest pain, unspecified;Hypokalemia;Adverse effect of amphetamines;Delusional disorders Presentation: 04/01 09:40 Chief complaint: Patient states: Chest pain that began Wednesday evening. Pt states, "this ss is not the first time." "With the sun and mcgregor going up and down and it's crazy. There is a whole hour missing Wednesday night. I have so many villalobos on my body and she has me thinking one thing, and there is no explanation for it. It's like a different type of technology has been used to make incisions and ale my body. I know I sound crazy, but there is a lot of weird stuff going on in this town.". Coronavirus screen: Client denies travel out of the [place] in the last 14 days. Ebola Screen: Patient denies exposure to infectious person. Patient denies travel to an Ebola-affected area in the 21 days before illness onset. Initial Sepsis Screen: Does the patient meet any 2 criteria? No. Patient's initial sepsis screen is negative. Does the patient have a suspected source of infection? No. Patient's initial sepsis screen is negative. Risk Assessment: Do you want to hurt yourself or someone else? Patient reports no desire to harm self or others. Onset of symptoms was March 30, 2022. 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 - Social history:: Smoking status: Patient reports the use of cigarette tobacco products, smokes one-half pack cigarettes per day, Patient/guardian denies using alcohol, street drugs. Screenin:06 Abuse screen: Denies threats or abuse. Denies injuries from another. Nutritional ph screening: No deficits noted. Tuberculosis screening: No symptoms or risk factors identified. Fall Risk None identified. Assessment: 11:00 Reassessment: Pt reporting that she believes she may have been abducted by aliens after ph overdosing while living in [place], states, " It's like they did something to my left side of my body. It's like my left side is always hot and my right side is cold. I feel like my left arm is longer too like it's a different arm they attached or something. And I have these new scars that I can't explain and my nose seems different. I swear that my was there with them too. It's like she knows something.". General: Appears in no apparent distress. comfortable, well groomed, Behavior is cooperative, appropriate for age, anxious. Pain: Complains of pain in xiphoid area and mid-sternal area Pain radiates to back. Neuro: Level of Consciousness is awake, alert, obeys commands, Oriented to person, place. Cardiovascular: Capillary refill < 3 seconds in bilateral fingers Patient's skin is warm and dry. Respiratory: Airway is patent Respiratory effort is even, unlabored, Respiratory pattern is regular, symmetrical. GI: No signs and/or symptoms were reported involving the gastrointestinal system. Derm: Skin is intact, is healthy with good turgor, Skin is pink, warm \\T\\ dry. Musculoskeletal: Circulation, motion, and sensation intact. Range of motion: intact in all extremities. 12:28 Reassessment: Patient appears in no apparent distress at this time. Patient and/or ph family updated on plan of care and expected duration. Pain level reassessed. Patient is alert, oriented x 3, equal unlabored respirations, skin warm/dry/pink. Vital Signs: 09:40 BP 129 / 88; Pulse 100; Resp 15; Temp 98.9(TE); Pulse Ox 100% on R/A; ss 11:06 BP 132 / 89; Pulse 97; Resp 18; Pulse Ox 98% on R/A; ph ED Course: 09:30 Patient arrived in ED. rg4 09:44 Triage completed. ss 09:44 Arm band placed on right wrist. ss 09:48 Yemi Begum PA is PHCP. cp 09:48 Thee Alvarado MD is Attending Physician. cp 10:14 Rekha Greer, MEGGAN is Primary Nurse. ph 10:30 Initial lab(s) drawn, by me, sent to lab. EKG done, by ED staff, reviewed by Yemi WU. Inserted saline lock: 22 gauge in right antecubital area, using aseptic technique. Blood collected. 11:06 Patient has correct armband on for positive identification. Bed in low position. Call ph light in reach. Pulse ox on. NIBP on. 11:07 Patient maintains SpO2 saturation greater than 95% on room air. ph 14:22 XRAY Chest (1 view) In Process Unspecified. EDMS 15:20 No provider procedures requiring assistance completed. jh6 15:21 IV discontinued, intact, bleeding controlled, No redness/swelling at site. Pressure jh6 dressing applied. Administered Medications: 11:00 Drug: Ativan (LORazepam) 1 mg Route: IVP; Site: right antecubital; ph 11:39 Follow up: Response: No adverse reaction; RASS: Alert and Calm (0) ph 12:52 Drug: Potassium Chloride 20 mEq Route: IV; Rate: calculated rate; Site: right ph antecubital; 15:00 Follow up: Response: No adverse reaction; IV Status: Completed infusion ph 12:52 Drug: NS 0.9% 1000 ml Route: IV; Rate: 500 ml/hr; Site: right antecubital; ph 19:21 Follow up: Response: No adverse reaction; IV Status: Completed infusion; IV Intake: ph 1000ml 13:24 Not Given (Patient Refused; Reports allergyy): Ketorolac 15 mg IVP once ph 15:20 Drug: Potassium Effervescent Tablet 50 mEq Route: PO; ph 19:21 Follow up: Response: No adverse reaction ph Medication: 11:06 VIS not applicable for this client. ph Intake: 19:21 IV: 1000ml; Total: 1000ml. ph Outcome: 15:11 Discharge ordered by . cp 15:21 Discharged to home ambulatory. jh6 15:21 Condition: stable 15:21 Discharge instructions given to patient, Instructed on discharge instructions, follow up and referral plans. Demonstrated understanding of instructions, follow-up care, medications, Prescriptions given X 1. 15:21 Patient left the ED. 6 Signatures: Dispatcher [employer] EDMS [facility] [place], RN RN ss Rekha Greer RN RN ph Yemi Begum PA PA cp Garcia, Rubi rg4 Olivia Jaime RN RN jh6
--- NOTE | 2022-04-01 15:12 | EDPHYS ---
Physician Documentation [facility] Name: Yamilex Sweeney Age: 36 yrs Sex: Female : 1985 Arrival Date: 04/01/2022 Time: 09:30 Bed 15 Private MD: ED Physician Thee Alvarado HPI: 04/01 10:20 This 36 yrs old Female presents to ER via Ambulatory with complaints of Chest cp Pain. 10:20 The patient or guardian reports chest pain that is located primarily in the anterior cp chest wall, bilaterally. The pain does not radiate. 10:20 Associated signs and symptoms: The patient has no apparent associated signs or cp symptoms. The chest pain is described as aching. Duration: The patient or guardian reports a single episode, that is still ongoing, and unchanged. 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 - Social history:: Smoking status: Patient reports the use of cigarette tobacco products, smokes one-half pack cigarettes per day, Patient/guardian denies using alcohol, street drugs. ROS: 10:25 Constitutional: Negative for body aches, chills, fever, poor PO intake. cp 10:25 Cardiovascular: Positive for chest pain, Negative for edema, palpitations. cp 10:25 Respiratory: Negative for cough, shortness of breath, wheezing. 10:25 Abdomen/GI: Negative for abdominal pain, nausea, vomiting, and diarrhea. 10:25 All other systems are negative. Exam: 10:30 Constitutional: The patient appears in no acute distress, alert, awake, cp non-diaphoretic, non-toxic, well developed, well nourished. 10:30 Head/Face: Normocephalic, atraumatic. cp 10:50 ECG was reviewed by the Attending Physician. cp Vital Signs: 09:40 BP 129 / 88; Pulse 100; Resp 15; Temp 98.9(TE); Pulse Ox 100% on R/A; ss 11:06 BP 132 / 89; Pulse 97; Resp 18; Pulse Ox 98% on R/A; ph MDM: 09:57 Patient medically screened. cp 04/01 10:19 Order name: Acetaminophen cp 04/01 10:19 Order name: Basic Metabolic Panel 04/01 11:33 Interpretation: Normal except: K 2.8. cp 04/01 10:19 Order name: CBC with Diff; Complete Time: 11:33 cp 04/01 10:19 Order name: ETOH Level; Complete Time: 11:33 cp 04/01 10:19 Order name: Hepatic Function cp 04/01 10:19 Order name: PT-INR; Complete Time: 11:33 cp 04/01 10:19 Order name: Ptt, Activated; Complete Time: 11:33 cp 04/01 10:19 Order name: Salicylate; Complete Time: 11:33 cp 04/01 10:19 Order name: Urine Drug Screen; Complete Time: 13:10 cp 04/01 10:19 Order name: Troponin High Sensitivity 04/01 12:21 Order name: Urine Dipstick-Ancillary; Complete Time: 13:10 EDMS 04/01 13:54 Order name: XRAY Chest (1 view); Complete Time: 14:56 cp 04/01 14:57 Interpretation: Report review. 04/01 10:19 Order name: EKG; Complete Time: 10:19 cp 04/01 10:19 Order name: EKG - Nurse/Tech; Complete Time: 11:00 cp 04/01 10:19 Order name: IV Saline Lock; Complete Time: 10:33 cp 04/01 10:19 Order name: Labs collected and sent; Complete Time: 11:00 cp 04/01 10:19 Order name: Suicide Screening ([place]); Complete Time: 10:33 cp 04/01 10:19 Order name: Urine Dipstick-Ancillary (obtain specimen); Complete Time: 13:25 cp 04/01 10:19 Order name: Urine Test (obtain specimen); Complete Time: 13:25 cp 04/01 14:57 Order name: EKG - Nurse/Tech; Complete Time: 19:21 cp EC:50 Rate is 86 beats/min. Rhythm is regular. UT interval is normal. QRS interval is normal. cp QT interval is normal. T waves are Inverted in lead aVR. Interpreted by me. Reviewed by me. Administered Medications: 11:00 Drug: Ativan (LORazepam) 1 mg Route: IVP; Site: right antecubital; ph 11:39 Follow up: Response: No adverse reaction; RASS: Alert and Calm (0) ph 12:52 Drug: Potassium Chloride 20 mEq Route: IV; Rate: calculated rate; Site: right ph antecubital; 15:00 Follow up: Response: No adverse reaction; IV Status: Completed infusion ph 12:52 Drug: NS 0.9% 1000 ml Route: IV; Rate: 500 ml/hr; Site: right antecubital; ph 19:21 Follow up: Response: No adverse reaction; IV Status: Completed infusion; IV Intake: ph 1000ml 13:24 Not Given (Patient Refused; Reports allergyy): Ketorolac 15 mg IVP once ph 15:20 Drug: Potassium Effervescent Tablet 50 mEq Route: PO; ph 19:21 Follow up: Response: No adverse reaction ph Disposition: 18:26 Co-signature as Attending Physician, Thee Alvarado MD. rn Disposition Summary: 04/01/22 15:11 Discharge Ordered Location: Home cp Problem: new cp Symptoms: have improved cp Condition: Stable cp Diagnosis - Chest pain, unspecified cp - Hypokalemia cp - Adverse effect of amphetamines cp - Delusional disorders cp Followup: cp - With: Private Physician - When: 1 - 2 days - Reason: Recheck today's complaints Discharge Instructions: - Discharge Summary Sheet cp - Nonspecific Chest Pain, Adult cp - Potassium Content of Foods cp - Paranoid Personality Disorder cp - Methamphetamines Use Disorder cp - Aspirin and Your Heart cp - Hypokalemia cp Forms: - Medication Reconciliation Form cp - Thank You Letter cp - Antibiotic Education cp - Prescription Opioid Use cp Prescriptions: - Potassium Chloride 10 mEq Oral capsule, extended release - take 1 tablet by ORAL route once daily for 5 days; 5 tablet; Refills: 0, cp Product Selection Permitted Signatures: Dispatcher [employer] EDThee Colon MD MD rn Smirch, Shelby, RN RN ss Hall, Patricia, RN RN ph Yemi Begum PA PA cp Corrections: (The following items were deleted from the chart) 10:23 10:23 This 36 yrs old Female presents to ER via Ambulatory with complaints of cp Chest Pain. cp
[2022-04-01 16:00] VITALS: TEMP 98.9
[2022-04-01 16:06] VITALS: BP 132/89; O2SAT 98
== END 2022-04-01 15:21 | disposition home or self-care (01) ==
LOC: ER 09:28
DX: R07.9 Chest pain, unspecified (principal); E87.6 Hypokalemia; T43.625A Adverse effect of amphetamines, initial encounter; F22 Delusional disorders; F41.9 Anxiety disorder, unspecified; F32.A Depression, unspecified; F17.210 Nicotine dependence, cigarettes, uncomplicated; Z88.5 Allergy status to narcotic agent
CPT/HCPCS: 36415; 71045; 80048; 80076; 80307; 80320; 80329; 81003; 84484; 85025; 85610; 85730; 93005; J7040

== ENCOUNTER 2022-04-13 14:35 | Emergency (ER) | payer SELFPAY ==
[2022-04-13 17:10] LABS: Lymphocytes % 34.6 % (15.3-44.8); MPV 6.9 fL (7.6-11.3)
[2022-04-13 17:16] LABS: Protime INR 1.06
[2022-04-13 17:23] LABS: Urine Blood 1+ (Negative); Urine Glucose Negative (Negative); Urine Protein Trace (Negative); Urine Specific Gravity 1.015 (1.005-1.030); Urine pH 8.5 (5.0-7.0)
[2022-04-13 17:34] LABS: ALT/SGPT 23 U/L (12-78); AST/SGOT 17 U/L (15-37); Albumin 4.2 g/dL (3.4-5.0); Alkaline Phosphatase 66 U/L (45-117); BUN Blood Urea Nitrogen 7 mg/dL (7-18); Bicarbonate 29 mmol/L (21-32); Bilirubin Direct 0.1 mg/dL (0-0.2); Bilirubin Total 0.4 mg/dL (0.2-1.0); Glomerular Filtration Rate 101 ml/min (=/>90); Glucose Level 97 mg/dL (74-106); Potassium 3.8 mmol/L (3.5-5.1); Sodium Level 139 mmol/L (136-145)
[2022-04-13] MEDS ORDERED: LORAZEPAM 1 MG TABLET ONE (17:34)
--- NOTE | 2022-04-13 17:39 | RAD REPORT ---
EXAM DESCRIPTION: RAD - Chest Single View - 04/13/2022 5:26 pm CLINICAL HISTORY: chest pain COMPARISON: 04/01/2022 portable chest TECHNIQUE: AP portable chest image was obtained 04/13/2022 5:26 pm . FINDINGS: Lungs are clear. Heart and vasculature are normal. No measurable pleural effusion and no p neumothorax. No acute bony abnormality seen. No acute aortic findings suspected. IMPRESSION: No acute cardiopulmonary process. No significant change from comparison study.
[2022-04-13 17:50] LABS: Barbiturates NEGATIVE (NEGATIVE); Benzodiazepines NEGATIVE (NEGATIVE); Cocaine NEGATIVE (NEGATIVE); METHAMPHETAM POSITIVE (NEGATIVE); Methadone NEGATIVE (NEGATIVE); Opiates NEGATIVE (NEGATIVE); Phencyclidine NEGATIVE (NEGATIVE); THC Cannibis POSITIVE (NEGATIVE)
[2022-04-13 18:51] LABS: Urine Specific Gravity/Preg 1.015 (1.005-1.030)
--- NOTE | 2022-04-13 18:54 | ER ---
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 Coronavirus screen: Vaccine status: Patient reports receiving the 2nd dose of the covid vaccine. Ebola Screen: Patient denies travel to an Ebola-affected area in the 21 days before illness onset. Initial Sepsis Screen: Does the patient meet any 2 criteria? No. Patient's initial sepsis screen is negative. Does the patient have a suspected source of infection? No. Patient's initial sepsis screen is negative. Risk Assessment: Do you want to hurt yourself or someone else? Patient reports no desire to harm self or others. Onset of symptoms was April 13, 2022. 14:53 Method Of Arrival: Ambulatory [place] 14:53 Acuity: MARANDA 3 [place] Triage Assessment: 14:55 General: Appears in no apparent distress. Behavior is agitated. Pain: Complains of pain [place] in chest and epigastric area. Cardiovascular: Reports chest pain. 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 - Social history:: Smoking status: Patient reports the use of cigarette tobacco products, smokes one-half pack cigarettes per day. Screenin:30 Abuse screen: Denies threats or abuse. Nutritional screening: No deficits noted. [facility] Tuberculosis screening: No symptoms or risk factors identified. Fall Risk None identified. Assessment: 15:00 General: Appears distressed, Behavior is agitated, anxious. Pain: Complains of pain in 6 epigastric area Pain radiates to xiphoid area and left breast Pain currently is 4 out of 10 on a pain scale. Pain began suddenly. Neuro: Level of Consciousness is awake, alert, obeys commands, Oriented to person, place, time, situation, Electrical Products Sales Engineer are equal bilaterally. 15:00 General: pt anxious states " i'm having a panic attack and i need Ativan". states that jh6 the last time she came to the er she received Ativan and it made her feel better. pt also stated that she is having upper abd pain that radiates to her chest. pt yelling and not wanting to answer most of evaluation questions. . 17:00 Reassessment: Patient is alert, oriented x 3, equal unlabored respirations, skin jh6 warm/dry/pink. pt after speaking with is allowing for labs to be drawn as long as she cane get ativan. girlfriend is at bedside and is attempting to calm pt down. 18:20 Reassessment: Patient is alert, oriented x 3, equal unlabored respirations, skin jh6 warm/dry/pink. pt seen walking outside by file machine operator. walked out to parking lot where pt was found smoking. pt advised that she was not allowed to be outside and she stated " ok i want to go home". walked with pt back into er and iv was removed. provider advised that pt is wanting to go home. Vital Signs: 14:53 BP 128 / 94; Pulse 95; Resp 18; Temp 98.4; Pulse Ox 100% ; Weight 73.94 kg; Height 5 [place] ft. 4 in. (162.56 cm); 16:00 BP 122 / 80; Pulse 80; Resp 18; Pulse Ox 97% ; Pain 4/10; jh6 14:53 Body Mass Index 27.98 (73.94 kg, 162.56 cm) ED Course: 14:35 Patient arrived in ED. jj6 14:55 Triage completed. [place] 14:55 Arm band placed on. [place] 15:00 Moe Garcia MD is Attending Physician. kdr 15:08 Olivia Jaime, MEGGAN is Primary Nurse. 6 15:30 Bed in low position. Call light in reach. Side rails up X 1. Adult w/ patient. 6 17:07 Initial lab(s) drawn, by me, sent to lab. Inserted saline lock: 20 gauge in left jw7 antecubital area, using aseptic technique. Blood collected. 17:26 Urine collected: clean catch specimen, cloudy. jw7 17:27 Urine Drug Screen Sent. jw7 17:28 Chest Single View In Process Unspecified. EDMS 17:28 EKG done, by ED staff, reviewed by Moe Garcia MD. jw7 18:20 IV discontinued, intact, bleeding controlled, No redness/swelling at site. Pressure jh6 dressing applied. Administered Medications: 17:37 Drug: Ativan (LORazepam) 1 mg Route: PO; 6 Outcome: 18:54 Discharge ordered by . kdr 19:01 Patient left the ED. iw Signatures: Dispatcher [employer] EDMS Moe Garcia MD MD kdr Lorena Aldrich RN RN Olivia Mendoza jj6 Olivia Jaime RN RN jh6 Jimena Anaya RN RN Maegan Oakes jw7
--- NOTE | 2022-04-13 18:54 | EDPHYS ---
Physician Documentation [facility] Name: Yamilex Sweeney Age: 36 yrs Sex: Female : 1985 Arrival Date: 04/13/2022 Time: 14:35 Bed 15 Private MD: ED Physician Moe Garcia HPI: 04/13 19:12 This 36 yrs old Female presents to ER via Ambulatory with complaints of Chest kdr Pressure, Chest Tightness. 19:12 The patient or guardian reports chest pain that is located primarily in the substernal kdr area, The patient feels like her chest is opening up. She also is concerned that she may have other persons organs in her at this time. She is concerned that all of her organs internally have been replaced by other individuals organs patient has no suicidal or homicidal. 19:16 Patient appears to have an acute psychosis which is ongoing and not new. She has had kdr the believe for some time that her organs have been replaced by other individuals organs. She is also had the feeling that her skin belonged to somebody else. These appear to be relatively stable but ongoing psychotic conditions. Her significant other that is with her seems engaged in these delusions and has made some attempt to manage them.. . To the extent the patient has any physical complaints, it appears to be a manifestation of her underlying delusions and psychosis. She is otherwise otherwise stable in the ED and not requiring any emergent intervention. 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 - Social history:: Smoking status: Patient reports the use of cigarette tobacco products, smokes one-half pack cigarettes per day. ROS: 19:16 Constitutional: Negative for fever, chills, and weight loss, Eyes: Negative for injury, kdr pain, redness, and discharge, Neck: Negative for injury, pain, and swelling, Cardiovascular: Negative for chest pain, palpitations, and edema, Respiratory: Negative for shortness of breath, cough, wheezing, and pleuritic chest pain, Abdomen/GI: Negative for abdominal pain, nausea, vomiting, diarrhea, and constipation, Back: Negative for injury and pain, MS/Extremity: Negative for injury and deformity, Skin: Negative for injury, rash, and discoloration, Neuro: Negative for headache, weakness, numbness, tingling, and seizure activity. Allergy/Immunology: Negative for hives, rash, and allergies, Endocrine: Negative for neck swelling, polydipsia, polyuria, polyphagia, and marked weight changes, Hematologic/Lymphatic: Negative for swollen nodes, abnormal bleeding, and unusual bruising. 19:16 Psych: Positive for Patient has ongoing chronic delusional state and psychosis.. Exam: 19:16 Constitutional: This is a well developed, well nourished patient who is awake, alert, kdr and in no acute distress. Head/Face: Normocephalic, atraumatic. Eyes: Pupils equal round and reactive to light, extra-ocular motions intact. Lids and lashes normal. Conjunctiva and sclera are non-icteric and not injected. Cornea within normal limits. Periorbital areas with no swelling, redness, or edema. Neck: Trachea midline, no thyromegaly or masses palpated, and no cervical lymphadenopathy. Supple, full range of motion without nuchal rigidity, or vertebral point tenderness. No Meningismus. Chest/axilla: Normal chest wall appearance and motion. Nontender with no deformity. No lesions are appreciated. Cardiovascular: Regular rate and rhythm with a normal S1 and S2. No gallops, murmurs, or rubs. Normal PMI, no JVD. No pulse deficits. Respiratory: Lungs have equal breath sounds bilaterally, clear to auscultation and percussion. No rales, rhonchi or wheezes noted. No increased work of breathing, no retractions or nasal flaring. Abdomen/GI: Soft, non-tender, with normal bowel sounds. No distension or tympany. No guarding or rebound. No evidence of tenderness throughout. Back: No spinal tenderness. No costovertebral tenderness. Full range of motion. Skin: Warm, dry with normal turgor. Normal color with no rashes, no lesions, and no evidence of cellulitis. MS/ Extremity: Pulses equal, no cyanosis. Neurovascular intact. Full, normal range of motion. Neuro: Awake and alert, GCS 15, oriented to person, place, time, and situation. Cranial nerves II-XII grossly intact. Motor strength 5/5 in all extremities. Sensory grossly intact. Cerebellar exam normal. Normal gait. 19:16 Psych: Behavior/mood is pleasant, cooperative, delirious, Patient is paranoid. Vital Signs: 14:53 BP 128 / 94; Pulse 95; Resp 18; Temp 98.4; Pulse Ox 100% ; Weight 73.94 kg; Height 5 [place] ft. 4 in. (162.56 cm); 16:00 BP 122 / 80; Pulse 80; Resp 18; Pulse Ox 97% ; Pain 4/10; jh6 14:53 Body Mass Index 27.98 (73.94 kg, 162.56 cm) [place] MDM: 18:54 Patient medically screened. kdr 19:36 Data reviewed: vital signs, nurses notes, lab test result(s), radiologic studies. [facility] 04/13 16:44 Order name: Acetaminophen Level [facility] 04/13 16:44 Order name: Alcohol Serum/Plasma [facility] 04/13 16:44 Order name: Basic Metabolic Panel [facility] 04/13 16:22 Order name: EKG; Complete Time: 18:33 kdr 04/13 16:22 Order name: Cardiac monitoring; Complete Time: 17:02 kdr 04/13 16:22 Order name: EKG - Nurse/Tech; Complete Time: 17:28 kdr 04/13 16:44 Order name: CBC with Automated Diff [facility] 04/13 16:44 Order name: Lipase [facility] 04/13 16:44 Order name: Liver (Hepatic) Function [facility] 04/13 16:44 Order name: Protime (+INR) [facility] 04/13 16:44 Order name: PTT, Activated Partial Thromb [facility] 04/13 16:44 Order name: Salicylates Level [facility] 04/13 16:44 Order name: Urine Drug Screen [facility] 04/13 16:44 Order name: Chest Single View [facility] 04/13 17:23 Order name: Urine Dipstick-Ancillary [facility] 04/13 17:28 Order name: Urine --Ancillary (enter results) 04/13 18:56 Order name: Troponin High Sensitivity [facility] 04/13 16:22 Order name: IV Saline Lock; Complete Time: 17:01 kdr 04/13 16:22 Order name: Labs collected and sent; Complete Time: 17:02 kdr 04/13 16:22 Order name: O2 Per Protocol; Complete Time: 17:02 kdr 04/13 16:22 Order name: O2 Sat Monitoring; Complete Time: 17:02 kdr 04/13 16:22 Order name: Suicide Screening ([place]); Complete Time: 17:02 kdr 04/13 16:22 Order name: Urine Dipstick-Ancillary (obtain specimen); Complete Time: 17:02 kdr Administered Medications: 17:37 Drug: Ativan (LORazepam) 1 mg Route: PO; jh6 Disposition Summary: 04/13/22 18:54 Discharge Ordered Location: Home kdr Problem: an acute exacerbation kdr Symptoms: have improved kdr Condition: Stable kdr Diagnosis - Unspecified psychosis not due to a substance or known physiological condition kdr - Acute Psychosis kdr - Other psychoactive substance abuse with psychoactive substance-induced mood disorderkdr Followup: kdr - With: Private Physician - When: 1 - 2 days - Reason: If symptoms return, Further diagnostic work-up, Recheck today's complaints, Continuance of care, Re-evaluation by your physician Discharge Instructions: - Discharge Summary Sheet kdr - Substance Use Disorder kdr - Psychosis kdr - Supporting Someone With Substance Use Disorder kdr Forms: - Medication Reconciliation Form kdr - Thank You Letter kdr Signatures: Dispatcher [employer] EDMS Moe Garcia MD MD kdr Olivia Jaime RN RN jh6 Patricia-Jimena Flores RN RN Corrections: (The following items were deleted from the chart) 18:45 18:33 Chest Single View+RAD.RAD.BRZ ordered. EDMS EDMS 18:55 18:33 PROTIME (+INR)+COAG.LAB.BRZ ordered. EDMS EDMS 18:55 18:33 PTT, ACTIVATED+COAG.LAB.BRZ ordered. EDMS EDMS 18:55 18:33 URINE DRUG SCREEN+UC.LAB.BRZ ordered. EDMS EDMS 18:56 18:33 BASIC METABOLIC PANEL+C.LAB.BRZ ordered. EDMS EDMS 18:56 18:33 CBC+H.LAB.BRZ ordered. EDMS EDMS 18:56 18:33 Troponin High Sensitivity+C.LAB.BRZ ordered. EDMS EDMS 18:56 18:33 ACETAMINOPHEN+C.LAB.BRZ ordered. EDMS EDMS 18:56 18:33 ETHANOL+C.LAB.BRZ ordered. EDMS EDMS 18:56 18:33 HEPATIC FUNCTION+C.LAB.BRZ ordered. EDMS EDMS 18:56 18:33 SALICYLATE+C.LAB.BRZ ordered. EDMS EDMS 18:56 18:33 LIPASE+C.LAB.BRZ ordered. EDMS EDMS
[2022-04-13 19:13] VITALS: TEMP 98.4
[2022-04-13 19:15] VITALS: BP 122/80; O2SAT 97
[2022-04-13 19:31] LABS: Troponin High Sensitivity 3.1 pg/mL (<58.9)
--- NOTE | 2022-04-14 07:57 | EKG ---
Test Date: 2022-04-13 Test Time: 17:16:11 Inspector Subassembly: BRENNAN MEASUREMENT RESULTS: Intervals: Rate: 79 MD: 122 QRSD: 90 QT: 388 QTc: 444 [place]: P: 75 MD: 122 QRS: 72 T: 69 INTERPRETIVE STATEMENTS: Normal sinus rhythm Normal ECG Compared to ECG 04/01/2022 10:44:12 No significant changes Electronically Signed On 04-14-22 07:55:28 CDT by Jake aJvier
== END 2022-04-13 19:01 | disposition home or self-care (01) ==
LOC: ER 14:35
DX: F28 Other psychotic disorder not due to a substance or known physiological condition (principal); F23 Brief psychotic disorder; F19.14 Other psychoactive substance abuse with psychoactive substance-induced mood disorder; R07.89 Other chest pain; F41.8 Other specified anxiety disorders; Z72.0 Tobacco use; Z88.5 Allergy status to narcotic agent
CPT/HCPCS: 36415; 71045; 80048; 80076; 80307; 80320; 80329; 81003; 81025; 83690; 84484; 85025; 85610; 85730; 93005; 99284

== ENCOUNTER 2022-04-24 14:23 | Emergency (ER) | payer SELFPAY ==
--- NOTE | 2022-04-24 15:00 | EDPHYS ---
Physician Documentation [facility] Name: Yamilex Sweeney Age: 36 yrs Sex: Female : 1985 Arrival Date: 04/24/2022 Time: 14:25 Bed 6 Private MD: ED Physician Yemi Kirk HPI: 04/24 14:54 This 36 yrs old Female presents to ER via Unassigned with complaints of libby anxiety. 14:54 The patient presents to the emergency department with anxiety, over unknown libby circumstances. Onset: The symptoms/episode began/occurred this morning, today. Past psychiatric history: Prior diagnosis: addiction history, narcotics. Associated signs and symptoms: Pertinent positives; anxiety. Severity of symptoms: At their worst the symptoms were moderate in the emergency department the symptoms are unchanged. The patient has experienced similar episodes in the past. 15:[address], upset. 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 - Family history:: not pertinent. - Social history:: Smoking status: Patient reports the use of cigarette tobacco products, smokes one pack cigarettes per day. ROS: 14:55 Constitutional: Negative for fever, chills, and weight loss, Eyes: Negative for injury, libby pain, redness, and discharge, ENT: Negative for injury, pain, and discharge, Neck: Negative for injury, pain, and swelling, Cardiovascular: Negative for chest pain, palpitations, and edema, Respiratory: Negative for shortness of breath, cough, wheezing, and pleuritic chest pain, Abdomen/GI: Negative for abdominal pain, nausea, vomiting, diarrhea, and constipation, Back: Negative for injury and pain, : Negative for injury, bleeding, discharge, and swelling, MS/Extremity: Negative for injury and deformity, Skin: Negative for injury, rash, and discoloration, Neuro: Negative for headache, weakness, numbness, tingling, and seizure, Allergy/Immunology: Negative for hives, rash, and allergies, Endocrine: Negative for neck swelling, polydipsia, polyuria, polyphagia, and marked weight changes, Hematologic/Lymphatic: Negative for swollen nodes, abnormal bleeding, and unusual bruising. 14:55 Psych: Positive for anxiety. Exam: 14:55 Constitutional: This is a well developed, well nourished patient who is awake, alert, libby and in no acute distress. Head/Face: Normocephalic, atraumatic. Eyes: Pupils equal round and reactive to light, extra-ocular motions intact. Lids and lashes normal. Conjunctiva and sclera are non-icteric and not injected. Cornea within normal limits. Periorbital areas with no swelling, redness, or edema. ENT: Nares patent. No nasal discharge, no septal abnormalities noted. Tympanic membranes are normal and external auditory canals are clear. Oropharynx with no redness, swelling, or masses, exudates, or evidence of obstruction, uvula midline. Mucous membranes moist. Neck: Trachea midline, no thyromegaly or masses palpated, and no cervical lymphadenopathy. Supple, full range of motion without nuchal rigidity, or vertebral point tenderness. No Meningismus. Chest/axilla: Normal chest wall appearance and motion. Nontender with no deformity. No lesions are appreciated. Cardiovascular: Regular rate and rhythm with a normal S1 and S2. No gallops, murmurs, or rubs. Normal PMI, no JVD. No pulse deficits. Respiratory: Lungs have equal breath sounds bilaterally, clear to auscultation and percussion. No rales, rhonchi or wheezes noted. No increased work of breathing, no retractions or nasal flaring. Abdomen/GI: Soft, non-tender, with normal bowel sounds. No distension or tympany. No guarding or rebound. No evidence of tenderness throughout. Back: No spinal tenderness. No costovertebral tenderness. Full range of motion. Skin: Warm, dry with normal turgor. Normal color with no rashes, no lesions, and no evidence of cellulitis. MS/ Extremity: Pulses equal, no cyanosis. Neurovascular intact. Full, normal range of motion. Neuro: Awake and alert, GCS 15, oriented to person, place, time, and situation. Cranial nerves II-XII grossly intact. Motor strength 5/5 in all extremities. Sensory grossly intact. Cerebellar exam normal. Normal gait. 14:55 Musculoskeletal/extremity: DVT Exam: No signs of deep vein thrombosis. no pain, no swelling, no tenderness, negative Homans' sign noted on exam, no appreciated bluish discoloration, no erythema, no increased warmth. 14:55 Psych: Exam negative for acute changes, hallucinations, delusions, inappropriate behavior, psychosis, paranoia, Behavior/mood is pleasant, cooperative, Affect is calm, Oriented to person, place, time, Patient has no thoughts/intents to harm self or others. Judgement / Insight is normal. Memory is normal. Delusions/hallucinations are not present. Vital Signs: 14:50 BP 120 / 80; Pulse 110; Resp 20 S; Temp 98.0; Pulse Ox 98% on R/A; Weight 70.31 kg (R); jg9 Height 5 ft. 4 in. (162.56 cm) (R); Pain 0/10; 15:30 BP 116 / 83; Pulse 100; Resp 17; Pulse Ox 99% on R/A; jg9 14:50 Body Mass Index 26.61 (70.31 kg, 162.56 cm) jg9 MDM: 14:27 Patient medically screened. libby 14:57 Differential diagnosis: drug withdrawal. acute psychotic break, depression, psychosis libby secondary to non-compliance. Differential Diagnosis altered mental status. Data reviewed: vital signs, nurses notes. Data interpreted: ekg monitor: rate is 90 beats/min, rhythm is regular, Pulse oximetry: on room air is 96 %. Counseling: I had a detailed discussion with the patient and/or guardian regarding: the historical points, exam findings, and any diagnostic results supporting the discharge/admit diagnosis, the need for outpatient follow up, for definitive care, a family practitioner, a psychiatrist. Administered Medications: 15:29 Drug: hydrOXYzine 50 mg Route: PO; jg9 15:30 Follow up: Response: No adverse reaction; Medication administered at discharge. jg9 Disposition Summary: 04/24/22 14:59 Discharge Ordered Location: Home libby Problem: new libby Symptoms: have improved libby Condition: Stable libby Diagnosis - Adjustment disorder with anxiety libby - Anxiety disorder, unspecified libby Followup: libby - With: Private Physician - When: 2 - 3 days - Reason: Recheck today's complaints, Continuance of care, Re-evaluation by your physician Followup: libby - With: Jorge Franco MD - When: 2 - 3 days - Reason: Recheck today's complaints, Continuance of care, Re-evaluation by your physician Discharge Instructions: - Discharge Summary Sheet libby - Panic Attack libby - Panic Attack, [id number] libby - Generalized Anxiety Disorder, Adult libby - Supporting Someone With Anxiety libby - Managing Anxiety, Adult [facility] Forms: - Medication Reconciliation Form libby - Thank You Letter libby - Antibiotic Education libby - Prescription Opioid Use [facility] Prescriptions: - Hydroxyzine HCl 25 mg Oral Tablet - take 1 tablet by ORAL route every 6 hours As needed; 30 tablet; Refills: 0, libby Product Selection Permitted Signatures: Yemi Kirk MD MD cha Gilmore, Jennifer RN RN jg9
[2022-04-24] MEDS ORDERED: hydrOXYzine HCL 25 MG TAB ONE (15:25)
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
== END 2022-04-24 15:29 | disposition home or self-care (01) ==
LOC: ER 14:23
DX: F43.22 Adjustment disorder with anxiety (principal); F17.210 Nicotine dependence, cigarettes, uncomplicated; Z88.5 Allergy status to narcotic agent
CPT/HCPCS: 99283